=== PATIENT | female | born 1965 | race African-American/Black ===

== ENCOUNTER 2017-06-15 00:03 | Emergency (ER) | payer OTHER ==
[~2017-06-15] VITALS: Ht 172.7 cm; Wt 89.3 kg
[2017-06-15 00:13] VITALS: Ht 172.7 cm; Wt 89.3 kg
[2017-06-15 02:12] VITALS: BP 170/98
== END 2017-06-15 02:12 | disposition home or self-care (01) ==
LOC: ED 00:03
DX: J98.01 Acute bronchospasm (principal); I10 Essential (primary) hypertension; E11.9 Type 2 diabetes mellitus without complications; E78.00 Pure hypercholesterolemia, unspecified; E66.9 Obesity, unspecified; Z88.6 Allergy status to analgesic agent
CPT/HCPCS: 36415; 82962; 87804; J2930; J7613; J7644

== ENCOUNTER 2018-01-10 23:25 | Inpatient (IN) | payer OTHER ==
[~2018-01-10] VITALS: Ht 172.7 cm; Wt 111.1 kg
[2018-01-11] VITALS (7 sets, daily range): BP systolic 130–155; BP diastolic 72–111
[2018-01-11 00:15] LABS: PLATELET COUNT 237 x10^3mcL (130-400)
[2018-01-11 00:20] LABS: BASOPHIL % 2.9 % (0-2)
[2018-01-11 00:22] LABS: CALCIUM 8.5 mg/dL (8.5-10.1); CARBON DIOXIDE 29.8 mmol/L (21-32); CREATININE SERUM 1.1 mg/dL (0.6-1.0); POTASSIUM SERUM 3.8 mmol/L (3.5-5.1)
[2018-01-11 00:27] LABS: BILIRUBIN TOTAL 0.4 mg/dL (0.20-1.00); TOTAL PROTEIN, SERUM 7.1 g/dL (6.4-8.2)
[2018-01-11 00:38] LABS: ALBUMIN 3.1 g/dL (3.4-5.0)
[2018-01-11] MEDS ORDERED: GOOD SENSE ASPI81 M3 PO (02:00)
[2018-01-11] MEDS ORDERED: NOR10 PO (02:01)
[2018-01-11] MEDS ORDERED: FUROSEMIDE20 MG PO (02:03)
[2018-01-11] MEDS ORDERED: LIPITOR40 MG PO (02:04)
[2018-01-11] MEDS ORDERED: GOOD NEIGHBOR P20 M2 PO (02:06)
[2018-01-11] MEDS ORDERED: METOPROLOL TART50 MG PO (02:07)
[2018-01-11] MEDS ORDERED: ISOSORBIDE DINI20 MG PO (02:12)
[2018-01-11] MEDS ORDERED: POTASSIUM CHLO10 MEQ PO (02:13)
[2018-01-11 02:15] LABS: CHOLESTEROL/HDL RATIO 2.8; MAGNESIUM 1.5 mg/dL (1.8-2.4); PHOSPHOROUS 4.9 mg/dL (2.5-4.9)
[2018-01-11 02:23] LABS: T3 TOTAL 0.9 ng/mL
[2018-01-11 02:24] LABS: FREE T4 1.11 ng/dL (0.76-1.46); FREE THYROXINE INDEX 2.3 ug/dL (1.4-4.5); T4(THYROXINE) 6.9 ug/dL (4.7-13.3)
[2018-01-11 06:26] LABS: BASOPHIL % 0.2 % (0-2); PLATELET COUNT 202 x10^3mcL (130-400)
[2018-01-11 06:32] LABS: IRON 37 ug/dL (50-170)
[2018-01-11 06:34] LABS: RED CELL DISTRIBUTION WIDTH 20.5 % (11.5-14.5)
[2018-01-11 06:46] LABS: CALCIUM 8.6 mg/dL (8.5-10.1); CARBON DIOXIDE 30.6 mmol/L (21-32); CREATININE SERUM 1.2 mg/dL (0.6-1.0); POTASSIUM SERUM 4.7 mmol/L (3.5-5.1)
[2018-01-11 06:59] LABS: TOTAL IRON BINDING CAPACITY 466 ug/dL (250-450)
[2018-01-11 07:52] LABS: rbc morphology (normal/abnorm) ABNORMAL (NORMAL)
[2018-01-11 10:51] LABS: RED BLOOD CELLS 4.91 M/mm3 (4.10-5.10)
[2018-01-11] MEDS ORDERED: LASIX40 MG PO (11:47)
[2018-01-11] MEDS ORDERED: PREDNISONE20 MG PO (11:50)
[2018-01-11] MEDS ORDERED: LEVAQUIN750 MG PO (11:56)
== END 2018-01-11 14:37 | disposition home or self-care (01) | DRG 133 ==
LOC: ED 23:25 → DU 01-11 01:09
PROVIDERS: Emergency Medicine; Family Medicine
DX: J96.00 Acute respiratory failure, unspecified whether with hypoxia or hypercapnia (principal); I50.43 Acute on chronic combined systolic (congestive) and diastolic (congestive) heart failure; E44.0 Moderate protein-calorie malnutrition; E11.65 Type 2 diabetes mellitus with hyperglycemia; E83.42 Hypomagnesemia; J44.1 Chronic obstructive pulmonary disease with (acute) exacerbation; M94.0 Chondrocostal junction syndrome [Tietze]; I16.0 Hypertensive urgency; D50.9 Iron deficiency anemia, unspecified; Z79.4 Long term (current) use of insulin
CPT/HCPCS: 83880; 84439; J1940; J1956; J2270; J2405; J2920; J2930; J7030; J7620; Q0092

== ENCOUNTER 2018-09-13 00:04 | Inpatient (IN) | payer OTHER ==
[~2018-09-13] VITALS: Ht 172.7 cm; Wt 116.8 kg
[~2018-09-13 00:04] MED LIST: FUROSEMIDE20 MG PO; GOOD NEIGHBOR P20 M2 PO; GOOD SENSE ASPI81 M3 PO; ISOSORBIDE DINI20 MG PO; LASIX40 MG PO; LEVAQUIN750 MG PO; LIPITOR40 MG PO; METOPROLOL TART50 MG PO; NOR10 PO; POTASSIUM CHLO10 MEQ PO; PREDNISONE20 MG PO
--- NOTE | 2018-09-13 00:15 | NUR ---
EKG IN PROGRESS IN TRIAGE.
--- NOTE | 2018-09-13 00:50 | NUR ---
PT. IN ED WITH C/O FEELING SOB, CHEST PAIN, AND BILATERAL LEG PAIN AND SWELLING SINCE YESTERDAY. STATES SHE WAS SEEN AT [facility] ER YESTERDAY AND TREATED WITH LASIX. STATES WAS D/C WITH LASIX FOR HOME, REPROTS SHE TOOK HER LASIX TODAY BUT STILL FEELS SOB AND SWELLING TO LEGS. PT. AAOX4, TALKING AND RESPONDING APPROPRIATELY, BREATHING E/U. NOT IN ANY APPARENT DISTRESS AT THIS TIME. WILL CONTINUE TO MONITOR.
--- NOTE | 2018-09-13 01:19 | NUR ---
LAB AT BEDSIDE FOR BLOOD DRAW.
--- NOTE | 2018-09-13 01:22 | NUR ---
AT BEDSIDE FOR MSE.
[2018-09-13 01:31] LABS: PLATELET COUNT 278 x10^3mcL (130-400)
[2018-09-13 01:34] LABS: BASOPHIL % 2.7 % (0-2); RED CELL DISTRIBUTION WIDTH 18.7 % (11.5-14.5)
[2018-09-13 01:38] LABS: CALCIUM 8.9 mg/dL (8.5-10.1); CARBON DIOXIDE 27.4 mmol/L (21-32); CREATININE SERUM 1.4 mg/dL (0.6-1.0)
[2018-09-13 01:43] LABS: TOTAL PROTEIN, SERUM 7.3 g/dL (6.4-8.2)
--- NOTE | 2018-09-13 02:07 | NUR ---
PT. MEDICATED PER E-MAR. ALSO BESIDE COMMODE PALCED IN ROOM. INFORMED PT. TO CALL NURSE WHEN SHE NEEDS TO USE RESTROOM. VERBALIZED UNDERSTANDING
--- NOTE | 2018-09-13 02:53 | NUR ---
PT. UP TO BEDSIDE COMMODE, VOIDED X1.
--- NOTE | 2018-09-13 03:00 | NUR ---
DR. KEMP AT BEDSIDE TO DISCUSS PLAN OF CARE WITH PATIENT.
[2018-09-13] MEDS ORDERED: LANTUS SOLOS100 U/M1 (03:19)
[2018-09-13] MEDS ORDERED: LISINOPRIL2.5 MG (03:19)
--- NOTE | 2018-09-13 03:35 | NUR ---
REPORT GIVEN TO JARAD GRAHAM FOR FURTHER CARE OF ARNULFOMarybel. ALL QUESTIONS AND CONCERNS ADDRESSED.
[2018-09-13 03:42] VITALS: BP 142/69
[2018-09-13 03:58] LABS: MAGNESIUM 1.4 mg/dL (1.8-2.4); PHOSPHOROUS 5.3 mg/dL (2.5-4.9)
[2018-09-13 04:02] LABS: CHOLESTEROL/HDL RATIO 2.5
[2018-09-13 04:08] LABS: FREE T4 1.16 ng/dL (0.76-1.46); FREE THYROXINE INDEX 2.6 ug/dL (1.4-4.5)
[2018-09-13 04:09] VITALS: BP 155/111
[2018-09-13 04:38] LABS: T3 TOTAL 0.86 ng/mL
--- NOTE | 2018-09-13 04:40 | NUR ---
Admitted this 53y/o female from ED via [facility]. Alert and oriented. Ambulatory but c/o pain to BLE. No respiratory distress noted. Medicated with morphine as ordered for BLE pain. Admission assessment done. Fluid restriction 1L/day, pt. made aware. Tele #21 sinus tachycardia. Denies chest pain at this time. Call light within reach.
[2018-09-13 07:29] LABS: CALCIUM 8.7 mg/dL (8.5-10.1); CARBON DIOXIDE 30.8 mmol/L (21-32); CREATININE SERUM 1.4 mg/dL (0.6-1.0); POTASSIUM SERUM 3.8 mmol/L (3.5-5.1)
--- NOTE | 2018-09-13 07:35 | NUR ---
A+OX4, NO RESPIRATORY DISTRESS NOTED, TELE 21, PULSES MODERATE AND EQUAL LENKA, NONPITTING EDEMA TO BLE, DIMINISHED LUNG BASES, TOLERATING RA, BOWEL SOUNDS ACTIVE, VOIDING FREELY, GENERALIZED WEAKNESS, BLE PAIN, ECCHYMOSIS AND DISCOLORATION TO ABD, IV IN R HAND SALINE LOCKED, SITE WNL.
[2018-09-13 07:42] LABS: MAGNESIUM 1.4 mg/dL (1.8-2.4); PHOSPHOROUS 5.8 mg/dL (2.5-4.9)
[2018-09-13 08:09] LABS: PLATELET COUNT 227 x10^3mcL (130-400)
[2018-09-13 08:11] LABS: RED CELL DISTRIBUTION WIDTH 20.7 % (11.5-14.5)
--- NOTE | 2018-09-13 09:23 | NUR ---
PT COMPLAINING OF BLE PAIN 10/10, REQUESTING MORPHINE, MORPHINE IVP GIVEN, NO RESPRIATORY DISTRESS NOTED, CALL LIGHT WITHIN REACH.
[2018-09-13 10:02] VITALS: BP 119/92
--- NOTE | 2018-09-13 10:20 | NUR ---
ASSISTED PT TO BATHROOM AND BACK TO BED, SOB ON EXERTION, BACK IN BED HAVING ECHO DONE AT BEDSIDE, CALL LIGHT WITHIN REACH.
--- NOTE | 2018-09-13 12:04 | NUR ---
PT RESTING IN BED, NO RESPRIATORY DSITRESS NOTED, STATES PAIN IS TOLERABLE AT THIS TIME, CALL LIGHT WITHIN REACH.
--- NOTE | 2018-09-13 13:39 | NUR ---
PT RESTING IN BED, NO RESPIRATORY DSITRESS NOTED, APPEARS TO BE SLEEPING, CALL LIGHT WITHIN REACH.
--- NOTE | 2018-09-13 14:31 | NUR ---
PT COMPLAINING OF 10/10 BLE PAIN, REFUSING NORCO, REQUESTING MORPHINE, MORPHINE IVP GIVEN, RT AT BEDSIDE FOR BREATHING TREATMENT, CALL LIGHT WITHIN REACH.
[2018-09-13 14:37] VITALS: BP 107/82
[2018-09-13 14:43] LABS: ATYPICAL LYMPH 4 %; BAND NEUTROPHIL 0 % (0-10); BASOPHIL 0 % (0-2); MONOCYTE 6 % (0-7); SEGMENTED NEUTROPHILS 53 % (37-75); rbc morphology (normal/abnorm) ABNORMAL (NORMAL)
[2018-09-13 17:08] LABS: microscopic required? NO
[2018-09-13 17:22] LABS: urine erythrocyte NEGATIVE (NEGATIVE)
[2018-09-13 17:30] LABS: AMPHETAMINE QUAL UR NONE DETECTED (See below)
[2018-09-13 17:57] VITALS: BP 120/85
--- NOTE | 2018-09-13 18:13 | NUR ---
PT RESTING IN BED, NO RESPIRATORY DISTRESS NOTED, PT COMPLAINING THAT SHE CANNOT EAT CHICKEN AND PEAS AND REQUESTING ANOTHER DISH. PER KITCHEN, ONLY OTHER MAIN DISH IS PASTA WITH MEAT SAUCE. KITCHEN TO SEND PT PASTA TRAY.
--- NOTE | 2018-09-13 18:57 | NUR ---
PT RESTING IN BED, COMPLAINING OF 10/10 BLE PAIN, REQUESTING MORPHINE, MORPHINE IVP GIVEN, NO RESPIRATORY DISTRESS NOTED, CALL LIGHT WITHIN REACH.
--- NOTE | 2018-09-13 19:05 | NUR ---
ENDORSED CARE TO JENNIE GRAHAM.
--- NOTE | 2018-09-13 19:10 | NUR ---
AWAKE AND ALERT, ORIENTED X 4. SPEECH CLEAR AND APPROPRIATE. HOB ELEVATED 30 DEG. BREATHING UNLABORED ON 2LPM OF O2 VIA NC. STATED COMFORTABLE AT THIS TIME. NON PITTING EDEMA TO BLE. SALINE LOCK TO RIGHT HAND.
[2018-09-13 20:27] VITALS: BP 121/82
--- NOTE | 2018-09-14 00:07 | NUR ---
EYES CLOSED, BREATHING EVEN AND UNLABORED. CALL LIGHT WITHIN EASY REACH. HOB KEPT ELEVATED 30 DEG.
--- NOTE | 2018-09-14 02:28 | NUR ---
EYES CLOSED, BREATHING EVEN AND UNLABORED. CALL LIGHT WITHIN EASY REACH.
[2018-09-14 05:37] VITALS: BP 122/75
--- NOTE | 2018-09-14 06:32 | NUR ---
EYES CLOSED, EASILY AWAKENED. STATED SHE IS COMFORTABLE AT THIS TIME. BREATHING UNLABORED.
--- NOTE | 2018-09-14 07:12 | NUR ---
EYES CLOSED, BREATHING UNLABORED. CALL LIGHT WITHIN EASY REACH. ENDORSED TO NURSE YURIDIA
[2018-09-14 07:24] LABS: CALCIUM 8.7 mg/dL (8.5-10.1); CARBON DIOXIDE 31.1 mmol/L (21-32); CREATININE SERUM 1.5 mg/dL (0.6-1.0); POTASSIUM SERUM 3.7 mmol/L (3.5-5.1)
--- NOTE | 2018-09-14 07:53 | NUR ---
A+OX4, NO RESPIRATORY DSITRESS NOTED, TELE 21, PULSES MODERATE AND EQUAL LENKA, NON PITTING EDEMA BLE, LUNG SOUNDS DIMINISHED, 2L NC, BOWEL SOUNDS ACTIVE, VOIDING FREELY, GENERALIZED WEAKNESS, AMBULATORY, ECCHYMOSIS/DISCOLORATION TO ABD, IV IN R HAND SALINE LOCKED, SITE WNL.
[2018-09-14 08:22] LABS: BASOPHIL % 1.6 % (0-2); PLATELET COUNT 223 x10^3mcL (130-400)
[2018-09-14 08:24] LABS: RED CELL DISTRIBUTION WIDTH 20.8 % (11.5-14.5)
[2018-09-14 09:24] VITALS: BP 120/69
--- NOTE | 2018-09-14 09:42 | NUR ---
PT RESTING IN BED, COMPLAINING OF 10/10 BLE PAIN, REQUESTING MORPHINE IVP, MORPHINE IVP GIVEN, NO RESPRIATORY DSITRESS NOTED, CALL LIGHT WITHIN REACH.
[2018-09-14 10:33] LABS: ovalocyte/elliptocyte 1+; rbc morphology (normal/abnorm) ABNORMAL (NORMAL); target cell (codocyte) 1+; tear drop cell (dacryocyte) 1+
--- NOTE | 2018-09-14 12:03 | NUR ---
PT RESTING IN BED, NO RESPIRATORY DSITRESS NOTED, STATES PAIN IS TOLERABLE AT THIS TIME, CALL LIGHT WITHIN REACH.
[2018-09-14 12:34] VITALS: BP 129/79
--- NOTE | 2018-09-14 14:03 | NUR ---
PT RESTING IN BED RECEIVING BREATHING TREATMENT FROM RT, NO RESPRIATORY DISTRESS NOTED, COMPLAINING OF BLE, REQUESTING MORPHINE, MORPHINE IVP GIVEN, CALL LIGHT WITHIN REACH.
--- NOTE | 2018-09-14 15:02 | NUR ---
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
[2018-09-14 16:41] VITALS: BP 112/74
--- NOTE | 2018-09-14 16:51 | NUR ---
PT RESTING IN BED, NO RESPIRATORY DISTRESS NOTED, STATES PAIN IS TOLERABLE AAT THIS TIME, CALL LIGHT WITHIN REACH.
--- NOTE | 2018-09-14 18:36 | NUR ---
PT RESTING IN BED, COMPLAINING OF 10/10 BLE PAIN, MORPHINE IVP GIVEN, NO RESPRIATORY DISTRESS NOTED, CALL LIGHT WITHIN REACH.
[2018-09-14 19:55] VITALS: BP 110/67
--- NOTE | 2018-09-14 20:16 | NUR ---
PATIENT RECEIVED IN BED DURING BEDSIDE HANDS OFF AWAKE,ALERT AND ORIENTED X4 WATCHING TV, IN NO DISTRESS. ORIENTED X4, BREATHING EVEN AND UNLABORED BS CLEAR DIMINISHED BASES, STATED MILD SOB ON EXERTION AND ALSO WITH OCC NON PRODUCTIVE COUGH, FOUND ON 1LNC SAT 98%. DENIED CHEST PAINS, TELE#21 SR W/ BBB. HEPLOCK RT HAND INTACT AND PATENT. PATIENT WITH MILD GENERALIZED WEAKNESS, STATED AMBULATED TO BR TWICE ALREADY AND TOLERATED IT WELL. PITTING EDEMA TO BLE PULSES WEAK, PATIENT COMPLAINED OF MILD BLE PAIN RATED AT 4/10 INFORMED ABOUT PAIN MANAGEMENT. PATIENT ON CONTACT ISOLATION FOR POSITIVE MRSA/NARES, PATIENT GIVEN EDUCATTION ABOUT IT. SAFETY PRECAUTIONS MAINTAINED. WILL CONTINUE TO MONITOR.
[2018-09-14 21:22] VITALS: BP 106/73
--- NOTE | 2018-09-14 21:43 | NUR ---
PATIENT SCHED MEDS ADMINISTERED, PATIENT IN SITTING POSITION, PATIENT INFORMED ABOUT EACH MEDS ACTIONS AND PURPOSES. TOOK PILLS WELL. PATIENT ALSO COMPLAINED OF BLE PAIN RATED AT 6/10 MEDICATED PRN. MADE COMFORTABLE AND WILL CHECK EFFECTIVENESS OF MED. ALL CONCERNS AND QUESTIONS ADDRESSED AND ANSWERED.
--- NOTE | 2018-09-15 | NUR ---
ROUNDS MADE PATIENT SLEEPING QUIETLY AND COMFORTABLY THIS TIME. NO S/S OF DISTRESS. O2 AT 1LNC MAINTAINED. WILL CONTINUE TO MONITOR.
--- NOTE | 2018-09-15 02:32 | NUR ---
COMPLAINED OF BLE PAIN RATED AT 6/10, QV=084/78, MEDICATED PRN.
--- NOTE | 2018-09-15 03:32 | NUR ---
CHECKED EFFECTIVENESS, PATIENT STATED PAIN AT 2/10 COMFORTABLE.
--- NOTE | 2018-09-15 05:50 | NUR ---
PATIENT COMPLAINED OF HEADACHE AND REQUESTED FOR NORCO, MEDICATED PRN. WILL CHECK EFFECTIVENESS.
[2018-09-15 06:08] VITALS: BP 126/74
--- NOTE | 2018-09-15 06:11 | NUR ---
PATIENT STATED THAT SHE RESTED WELL AND SLEPT GOOD DURING THE SHIFT. WAS AMBULATORY TO THE BATHROOM TO VOID, MEASURED UA AT 1000 ML YELLOW UA. HEPLOCK TO RT HAND INTACT. DENIED CHEST PAINS, SR WITH BBB ON THE MONITOR. SAFETY PRECAUTIONS AND CONTACT ISOLATION OBSERVED AND MAINTAINED. WILL ENDORSE CONITNUITY OF CARE TO INCOMING NURSE.
--- NOTE | 2018-09-15 07:23 | NUR ---
BEDSIDE HANDS OFF AND INTROCUTION PREFORMED WITH INCOMING NURSE NICOLE-GLADYS.
[2018-09-15 07:30] LABS: PLATELET COUNT 213 x10^3mcL (130-400)
[2018-09-15 07:33] LABS: BASOPHIL % 0 % (0-2); RED CELL DISTRIBUTION WIDTH 20.2 % (11.5-14.5)
[2018-09-15 07:35] LABS: CALCIUM 8.4 mg/dL (8.5-10.1); CARBON DIOXIDE 32.4 mmol/L (21-32); CREATININE SERUM 1.1 mg/dL (0.6-1.0); POTASSIUM SERUM 3.4 mmol/L (3.5-5.1)
--- NOTE | 2018-09-15 07:40 | NUR ---
PATIENT RESTING IN BED, NO ACUTE DISTRESS NOTED. PATIENT DENIES CHEST PAIN, TELE MONITOR IN PLACE. EDMEA NOTED TO BILATERAL LOWER EXTREMITIES, EDUCATED PATIENT TO MAINTAIN EXTREMITIES ELEVATED. LUNG SOUNDS DIMINISHED TO THE BASES, PATIENT ON 1L NC, DENIES SOB. PATIENT AMBULATORY WITH ASSIST. IV TO RIGHT HAND SALINE LOCK, IV CDI, NO REDNESS, SWELLING OR PAIN NOTED.
--- NOTE | 2018-09-15 09:23 | NUR ---
DR CASTAÑEDA AWARE PATIENT K WAS 3.4, DR CASTAÑEDA GAVE VERBAL/READBACK ORDERS FOR KCL 20MEQ PO ONCE. WILL CARRY OUT ORRDERS AT THIS TIME.
[2018-09-15 09:38] VITALS: BP 139/83
[2018-09-15 11:09] VITALS: Ht 172.7 cm; Wt 116.8 kg
[2018-09-15 12:48] VITALS: BP 143/78
[2018-09-15] MEDS ORDERED: COR6 PO (13:21)
[2018-09-15] MEDS ORDERED: ZES5 PO (13:22)
[2018-09-15 14:30] VITALS: BP 143/78
--- NOTE | 2018-09-15 15:20 | NUR ---
PATIENT IS TO BE DISCHARGED HOME. PATIENT RECEIVED COPY OF DISCHARGE INSTRUCTIONS AND PRESCRIPTIONS. PATIENT UNDERSTANDS AND AGREES WITH D/C PLAN AND INSTRUCTIONS, INCLUDING MEDICATIONS AND FOLLOW UP CARE WITH PCP AND DRIVER MEDIC. ALL QUESTION AND CONCERNS ADDRESSED. WILL CONTINUE TO MONITOR PATIENT.
--- NOTE | 2018-09-15 16:25 | NUR ---
PATIENT WAS D/C HOME. PATIENT TAKEN DOWN VIA WHEELCHAIR BY HARNESS BUILDER. PATIENT TOOK HOME ALL PERSONAL BELONGINGS, DAUGHTER AT BEDSIDE. PATIENT TELE MONITOR, ARMBANDS REMOVED. IV TO R HAND REMOVED, CATH INTACT. PATIENT STABLE UPON DISCHARGE.
== END 2018-09-15 16:27 | disposition home or self-care (01) | DRG 194 ==
LOC: ED 00:04 → DU 02:56
PROVIDERS: ADMIT General Practice
DX: I11.0 Hypertensive heart disease with heart failure (principal); N17.0 Acute kidney failure with tubular necrosis; I50.43 Acute on chronic combined systolic (congestive) and diastolic (congestive) heart failure; E44.0 Moderate protein-calorie malnutrition; E11.65 Type 2 diabetes mellitus with hyperglycemia; E78.5 Hyperlipidemia, unspecified; J45.909 Unspecified asthma, uncomplicated; Z68.39 Body mass index [BMI] 39.0-39.9, adult; Z79.84 Long term (current) use of oral hypoglycemic drugs
CPT/HCPCS: 82962; 83880; 84439; J1644; J1940; J2270; J7620; Q0092

== ENCOUNTER 2018-09-22 20:59 | Inpatient (IN) | payer MEDICAID ==
[~2018-09-22] VITALS: Ht 172.7 cm; Wt 108.4 kg
[~2018-09-22 20:59] MED LIST changes: +COR6 PO; +LANTUS SOLOS100 U/M1; +LISINOPRIL2.5 MG; +ZES5 PO
[2018-09-22 21:04] VITALS: Ht 172.7 cm; Wt 108.4 kg
--- NOTE | 2018-09-22 21:09 | NUR ---
EKG IN PROGRESS IN TRIAGE.
--- NOTE | 2018-09-22 21:27 | NUR ---
PT CAME IN FOR CHEST PAIN, PRESSURE, SOB X 1 DAY WITH BILATERAL LOWER EXTREMITY PITTING EDEMA AND TENDERNESS. PT AWAKE, ALERT, RESPIRATIONS EVEN AND UNLABORED AT THIS TIME. FAMILY AT BEDSIDE. SAFETY PRECAUTIONS IN PLACE. ON MANAGER POKER
--- NOTE | 2018-09-22 21:39 | NUR ---
DR. HUSTON IN TO SEE PATIENT
--- NOTE | 2018-09-22 22:06 | NUR ---
MEDICATED PER EMAR. RT AT BEDSIDE
--- NOTE | 2018-09-22 22:21 | NUR ---
CALLED INTO ROOM BY DAUGHTER CONCERNED ABOUT BLOOD AROUND IV SITE. REMOVED BLOODY TEGADERM, WIPED BLOOD OFF SKIN, ASSESSED SALINE LOCK, ATTACHED WELL, AND APPLIED NEW IV DRESSING TO SITE, FLUSHED WITH 10ML NS/ WITH NO S/S OF INFILTRATION.
[2018-09-22 22:24] LABS: BASOPHIL % 1.4 % (0-2); PLATELET COUNT 238 x10^3mcL (130-400)
[2018-09-22 22:28] LABS: RED CELL DISTRIBUTION WIDTH 21.1 % (11.5-14.5)
[2018-09-22 22:33] LABS: rbc morphology (normal/abnorm) ABNORMAL (NORMAL)
[2018-09-22 22:34] LABS: CALCIUM 8.8 mg/dL (8.5-10.1); CARBON DIOXIDE 29.9 mmol/L (21-32); CREATININE SERUM 1.1 mg/dL (0.6-1.0); POTASSIUM SERUM 3.8 mmol/L (3.5-5.1); acanthocyte (spur cell) 1+; target cell (codocyte) 1+
--- NOTE | 2018-09-22 22:36 | NUR ---
PT CURRENTLY RESTING WITH EYES CLOSED, RESPONDS TO VERBAL STIMULI, REPORTS CHEST PAIN DOWN TO A 2/10, DENIES SOB. RESPIRATIONS EVEN AND UNLABORED. SAFETY PRECAUTIONS IN PLACE
[2018-09-22 22:45] LABS: BILIRUBIN TOTAL 0.58 mg/dL (0.20-1.00); C REACTIVE PROTEIN 0.5 mg/dL (<=0.9); TOTAL PROTEIN, SERUM 7.5 g/dL (6.4-8.2)
[2018-09-22 23:10] LABS: ERYTHROCYTE SED RATE 22 mm/hr (0-30)
[2018-09-22 23:13] LABS: CK-MB 0.9 ng/mL (0-3.6)
[2018-09-22 23:31] LABS: MAGNESIUM 1.7 mg/dL (1.8-2.4)
[2018-09-22 23:32] LABS: CHOLESTEROL/HDL RATIO 2.5
[2018-09-22 23:41] LABS: FREE T4 1.1 ng/dL (0.76-1.46); FREE THYROXINE INDEX 2.1 ug/dL (1.4-4.5); T4(THYROXINE) 6.4 ug/dL (4.7-13.3)
[2018-09-22 23:46] LABS: T3 TOTAL 1.2 ng/mL
--- NOTE | 2018-09-23 00:21 | NUR ---
REPORT GIVEN TO URSZULA GRAHAM, ALL QUESTIONS AND CONCERNS WERE ADDRESSED.
[2018-09-23 00:48] VITALS: BP 151/103
--- NOTE | 2018-09-23 00:52 | NUR ---
RECEIVED PT FROM ED VIA [employer]. ORIETNED PT TO ROOM AND SURROUNDINGS. IV NOTED TO RAC PATENT AND INTACT. TELE 22 PLACED ON PT READING ST WITH BBB. INSTRUCTED PT ON THE USE OF CALL LIGHT FOR ASSISTANCE. ENDORSED PT TO PRIMARY NURSE URSZULA
--- NOTE | 2018-09-23 00:54 | NUR ---
PAGED DR. KEMP REGARDING MAG 1.7.
--- NOTE | 2018-09-23 01:18 | NUR ---
DR. KEMP AT BEDSIDE PERFORMING ASSESSMENT.
--- NOTE | 2018-09-23 04:20 | NUR ---
PT C/O / BLE ACHING, "RIPPING" PAIN. PT MOANING FROM PAIN. MEDICATED PER EMAR.
[2018-09-23 04:28] VITALS: BP 152/103
[2018-09-23 04:50] LABS: UA SPECIFIC GRAVITY <=1.005 (1.005-1.035); microscopic required? YES; urine erythrocyte NEGATIVE (NEGATIVE)
[2018-09-23 05:08] LABS: AMPHETAMINE QUAL UR NONE DETECTED (See below)
[2018-09-23 06:31] LABS: PLATELET COUNT 167 x10^3mcL (130-400)
--- NOTE | 2018-09-23 07:20 | NUR ---
SEEN RESTING WITH EYES CLOSED. NO RESP DISTRESS NOTED, BREATHING E/U ON O2 2LPM N/C. TELE# 22 ST WITH BBB, HR=99. 3+EDEMA TO BLE, SCD TO BLE INPLACE. ON CCHO DIET WITH 1 LITER/DAY FLUID RESTRICTION. VOIDS, BRP. S/L TO RAC INTACT. CALL LIGHT NOTED PLACED WITHIN EASY REACH. SIDERAILS UP X2.
[2018-09-23 07:22] LABS: CALCIUM 8.6 mg/dL (8.5-10.1); CARBON DIOXIDE 28.5 mmol/L (21-32); CREATININE SERUM 1.1 mg/dL (0.6-1.0); MAGNESIUM 1.7 mg/dL (1.8-2.4); POTASSIUM SERUM 3.9 mmol/L (3.5-5.1)
[2018-09-23 07:44] LABS: RED CELL DISTRIBUTION WIDTH 20.6 % (11.5-14.5)
[2018-09-23 08:28] VITALS: BP 117/87
--- NOTE | 2018-09-23 09:00 | NUR ---
AM SCHEDULED MEDS GIVEN. STATED PAIN TO BLE AND CHEST SUBSIDED AFTER MORPHINE GIVEN FROM TRACTOR DRILL OPERATOR. TOLERATED TO [facility] DIET WELL. MADE AWARE OF 1 LITER/DAY FLUID RESTRICTION. RT AT BEDSIDE FOR BREATHING TX.
[2018-09-23 12:40] VITALS: BP 113/83
[2018-09-23 12:52] LABS: PLATELET MORPHOLOGY PLT CLUMPS SEEN
[2018-09-23 12:53] LABS: rbc morphology (normal/abnorm) ABNORMAL (NORMAL)
[2018-09-23 12:54] LABS: acanthocyte (spur cell) 1+; burr cell (echinocyte) 1+; ovalocyte/elliptocyte 1+
[2018-09-23 13:01] LABS: BAND NEUTROPHIL 1 % (0-10); MONOCYTE 6 % (0-7); SEGMENTED NEUTROPHILS 42 % (37-75)
--- NOTE | 2018-09-23 14:00 | NUR ---
SEEN BY DOCTOR TRISTON, PATIENT VERBALIZED UNDERSTANDING PLAN OF CARE. NOTED NEW ORDER FOR BUMEX IV BID.
[2018-09-23 16:41] VITALS: BP 112/87
--- NOTE | 2018-09-23 18:01 | NUR ---
NO ANY DISTRESS THROUGHOUT SHIFT. VSS. ALL SCHEDULED MEDS GIVEN. VOIDS FREELY, BSC. S/L TO RAC FLUSHED PATENT.
[2018-09-23 19:45] VITALS: BP 123/80
--- NOTE | 2018-09-23 19:58 | NUR ---
RECEIVED PT FROM PREVIOUS SHIFT. RESTING IN BED WITH EYES CLOSED, EASILY AROUSABLE TO VERBAL STIMULI. DENIES PAIN. BREATHING E/U ON 2L OXYGEN NC, DENIES FEELING SOB. DENIES CP. DENIES N/V. IV SITE TO [facility], PATENT AND FLUSHES WELL. SAFETY MEASURES IN PLACE. CALL LIGHT WITHIN REACH. WILL CONTINUE TO MONITOR CLOSELY.
--- NOTE | 2018-09-23 20:49 | NUR ---
PT MEDICATED PER EMAR FOR 03/01 BLE "RIPPING" PAIN.
--- NOTE | 2018-09-24 00:56 | NUR ---
PT RESTING IN BED WITH EYES CLOSED. NO S/S ACUTE DISTRESS. CHEST RISE/FALL EQUAL. CALL LIGHT WITHIN REACH. BSC BY BEDSIDE. SAFETY MEASURES IN PLACE. WILL CONTINUE TO MONITOR.
[2018-09-24 04:39] VITALS: BP 137/87
--- NOTE | 2018-09-24 05:58 | NUR ---
PT SLEPT IN LONG INTERVALS THROUGHOUT NIGHT. MEDICATED PER EMAR FOR 10/10 BLE PAIN. NO S/S ACUTE DISTRESS. ALL NEEDS MET AND ATTENDED TO. NO CHANGES OVERNIGHT. IV SITE PATENT AND INTACT, FLUSHES WELL. CALL LIGHT WITHIN REACH. SAFETY MEASURES MAINTAINED. WILL ENDORSE TO ONCOMING SHIFT.
--- NOTE | 2018-09-24 07:05 | NUR ---
SEEN IN BED AAOX4. NO RESP DISTRESS NOTED. STATED PAIN TO BLE SUBSIDED. NOTED 2+ EDEMA TO BLE, PEDAL PULES PALPABLE, ON BUMEX IV BID. STATED VOIDS FREELY, BSC PROVIDED. NO SOB NOTED, O2 2LPM N/C MAINTAINED. S/L TO RAC INTACT AND PATENT. PLAN OF CARE DISCUSSED. CALL LIGHT PLACED WITHIN EASY REACH, SIDERAILS UP X2.
[2018-09-24 07:58] LABS: CALCIUM 8.8 mg/dL (8.5-10.1); CARBON DIOXIDE 30.2 mmol/L (21-32); CREATININE SERUM 1.1 mg/dL (0.6-1.0)
[2018-09-24 08:57] VITALS: BP 123/80
--- NOTE | 2018-09-24 10:30 | NUR ---
DOCTOR JONES AND MEDICAL TEAM AT BEDSIDE FOR AM ROUND. PATIENT MADE AWARE OF CURRENT CONDITION AND PLAN OF CARE.
--- NOTE | 2018-09-24 10:50 | NUR ---
DOCTOR JONES AND MEDICAL TEAM AT BEDSIDE FOR AM ROUND.
[2018-09-24 11:50] LABS: BASOPHIL % 1.6 % (0-2); PLATELET COUNT 212 x10^3mcL (130-400)
[2018-09-24 11:53] LABS: RED CELL DISTRIBUTION WIDTH 20.9 % (11.5-14.5)
[2018-09-24 12:12] LABS: rbc morphology (normal/abnorm) ABNORMAL (NORMAL)
[2018-09-24 12:13] LABS: burr cell (echinocyte) 1+; schistocyte (helmet cell) 1+
[2018-09-24 12:14] LABS: ovalocyte/elliptocyte 1+
[2018-09-24 12:32] VITALS: BP 126/77
[2018-09-24 16:55] VITALS: BP 120/87
--- NOTE | 2018-09-24 17:50 | NUR ---
PT RESTING IN BED. AAOX4. RESP EVEN AND UNLABORED ON RA. NO ACUTE DISTRESS NOTED AT THIS TIME. IV SALINE LOCK TO LAC W/ NO ERYTHEMA. BED IN LOWEST POSITION AND CALL LIGHT WITHIN REACH. WILL ENDORSE TO ONCOMING NURSE.
--- NOTE | 2018-09-24 19:11 | NUR ---
RECEIVED PT FROM PREVIOUS SHIFT. RESTING IN BED WITH EYES CLOSED, CHEST RISE/FALL EQUAL. DENIES PAIN. BREATHING E/U ON 2L NC, PT C/O FEELING SOB, WILL NOTIFY RT. DENIES CP. TELE #22 SHOWING SINUS WITH BBB AND DEPRESSED ST-WAVE. DENIES N/V. IV SITE TO [facility] CDI, PATENT AND FLUSHES EASILY. SAFETY MEASURES IN PLACE. CALL LIGHT WITHIN REACH. WILL CONTINUE TO MONITOR CLOSELY.
[2018-09-24 19:42] VITALS: BP 140/89
--- NOTE | 2018-09-24 20:09 | NUR ---
PT C/O FEELING SOB. RT AT BEDSIDE TO ADMINISTER TX. PT MEDICATED FOR 10/10 BLE RIPPING SENSATION PAIN PER EMAR.
--- NOTE | 2018-09-25 01:03 | NUR ---
PT RESTING IN BED COMFORTABLY. CHEST RISE/FALL EQUAL. NO S/S ACUTE DISTRESS. CALL LIGHT WITHIN REACH. SAFETY MEASURES MAINTAINED. WILL CONTINUE TO MONITOR.
[2018-09-25 04:23] VITALS: BP 133/84
--- NOTE | 2018-09-25 05:27 | NUR ---
PT C/O SHARP, ACHING BLE PAIN AT 10/10. FACIAL GRIMACING AND GROANING NOTED. MEDICATED PER EMAR.
--- NOTE | 2018-09-25 06:02 | NUR ---
PT SLEPT IN SHORT INTERVALS THROUGHOUT NIGHT. NO CHANGES OVERNIGHT. ALL NEEDS MET AND ATTENDED TO. NO S/S ACUTE DISTRESS. UPDATED PT ON PLAN OF CARE. DENIES RESP. DISTRESS, ENCOURAGED PT TO CALL RT FOR TREATMENT IF NEEDED. PT VERBALIZED UNDERSTANDING. CALL LIGHT WITHIN REACH. WILL ENDORSE CARE TO ONCOMING SHIFT.
[2018-09-25 06:28] LABS: PLATELET COUNT 229 x10^3mcL (130-400)
[2018-09-25 06:51] LABS: CALCIUM 9.3 mg/dL (8.5-10.1); CARBON DIOXIDE 34.9 mmol/L (21-32); CREATININE SERUM 1.1 mg/dL (0.6-1.0); MAGNESIUM 1.4 mg/dL (1.8-2.4); PHOSPHOROUS 6.5 mg/dL (2.5-4.9); POTASSIUM SERUM 3.7 mmol/L (3.5-5.1)
[2018-09-25 06:57] LABS: RED CELL DISTRIBUTION WIDTH 20.6 % (11.5-14.5)
--- NOTE | 2018-09-25 07:05 | NUR ---
BEDSIDE REPORT GIVEN TO GLADYS LAMAS.
--- NOTE | 2018-09-25 07:18 | NUR ---
RECEIVED PT FROM SHIFT NURSE A/OX4 RESTING IN BED. NO ACUTE DISTRESS NOTED. DENIES CHEST PAIN OR PRESSURE. HEPLOCK PATENT. BED IN LOW POSITIONN. CALL LIGHT WITHIN REACH. WILL CONTINUE TO MONITOR.
--- NOTE | 2018-09-25 09:08 | NUR ---
PT C/O OF RT LEG PAIN. GAVE MORHINE ORDERED. WILL CONTINUE TO MONITOR.
[2018-09-25 09:10] VITALS: BP 141/78
--- NOTE | 2018-09-25 09:10 | NUR ---
PT EXPRESSED RELIEF OF RT LEG PAIN. WILL CONTINUE TO MONITOR.
--- NOTE | 2018-09-25 09:30 | NUR ---
PT EXPRESSED RELIEF OF RT LEG PAIN. WILL CONTINUE TO MONITOR.
--- NOTE | 2018-09-25 12:16 | NUR ---
PT SITTING UP IN BED TALKING ON THE PHONE. NO ACUTE DISTRESS NOTED. BED IN LOW POSITION. CALL LIGHT WITHIN REACH. WILL CONTINUE TO MONITOR.
[2018-09-25 12:29] VITALS: BP 132/87
[2018-09-25] MEDS ORDERED: POTASSIUM CHLO10 MEQ PO (12:41)
[2018-09-25] MEDS ORDERED: BUM1 PO (12:42)
[2018-09-25] MEDS ORDERED: MAGNESIUM OXID400 MG PO (12:43)
[2018-09-25] MEDS ORDERED: LYRICA50 M1 PO (12:47)
[2018-09-25 13:04] VITALS: BP 132/87
--- NOTE | 2018-09-25 13:54 | NUR ---
PT A/OX4 UPON DC. NO ACUTE DISTRESS NOTED. DENIES CHEST PAIN OR PRESSURE. NEW RX GIVEN. EDUCATION PROVIDED. INSTRUCTED TO FOLLOW UP WITH PCP. PT VERBALIZED UNDERSTANDING. IV REMOVED AND CATH INTACT. PERSONAL BELONGINGS TAKEN HOME. ACCOMPANIED BY ORDER DETAILER AND FAMILY MEMBER TO LOBBY.
== END 2018-09-25 13:56 | disposition home or self-care (01) | DRG 194 ==
LOC: ED 20:59 → DU 23:11
PROVIDERS: Specialist; ADMIT Internal Medicine
DX: I11.0 Hypertensive heart disease with heart failure (principal); I21.A1 Myocardial infarction type 2; N17.0 Acute kidney failure with tubular necrosis; I50.43 Acute on chronic combined systolic (congestive) and diastolic (congestive) heart failure; E44.0 Moderate protein-calorie malnutrition; E83.42 Hypomagnesemia; E11.65 Type 2 diabetes mellitus with hyperglycemia; I42.9 Cardiomyopathy, unspecified; R80.9 Proteinuria, unspecified; Z79.84 Long term (current) use of oral hypoglycemic drugs
CPT/HCPCS: 82962; 83880; 84439; J1815; J1940; J2270; J2405; J3010; J3475; J3490; J7050; J7613; J7620; J7644; Q0092; Q9967

== ENCOUNTER 2018-10-09 10:59 | Inpatient (IN) | payer OTHER ==
[~2018-10-09] VITALS: Ht 172.7 cm; Wt 108.0 kg
[~2018-10-09 10:59] MED LIST changes: +BUM1 PO; +LYRICA50 M1 PO; +MAGNESIUM OXID400 MG PO
--- NOTE | 2018-10-09 11:38 | NUR ---
XRAY AT BEDSIDE
[2018-10-09 12:08] LABS: CALCIUM 9.1 mg/dL (8.5-10.1); CARBON DIOXIDE 25.4 mmol/L (21-32); CREATININE SERUM 1.1 mg/dL (0.6-1.0); POTASSIUM SERUM 4.1 mmol/L (3.5-5.1)
[2018-10-09 12:13] LABS: BILIRUBIN TOTAL 0.44 mg/dL (0.20-1.00); TOTAL PROTEIN, SERUM 7.5 g/dL (6.4-8.2)
[2018-10-09 12:15] LABS: ALBUMIN 3.2 g/dL (3.4-5.0)
--- NOTE | 2018-10-09 13:13 | NUR ---
PT IN POSITION OF COMFORT WITH EYES CLOSED. RESP E/U, NO DISTRESS NOTED. REMAINS CONNECTED TO FULL CM.
[2018-10-09 13:24] LABS: PLATELET COUNT 225 x10^3mcL (130-400); RED CELL DISTRIBUTION WIDTH 21.6 % (11.5-14.5)
--- NOTE | 2018-10-09 13:40 | NUR ---
PT PRESENTS TO ED WITH C/O OF SOB X2 DAYS. PT STS SHE WAS FEELING VERY SHORT OF YESTERDAY AND TODAY IS WORSE. PT ALSO STS SHE HAS BILATERAL NUEROPATHY PAIN IN HER LOWER EXTREMITIES. PT DENIES ANY CHEST PAIN, ABDOMINAL PAIN, N/V/D, OR FEVER. PT STS WHEN SHE USUALLY FEELS THIS SHORT OF BREATH FROM HER CHF HER LEGS "SWELL". NO EDEMA NOTED ON PT BILATERAL LOWER EXTREMITIES. PT STS NUEROPATHY PAIN IS NOT CONSTANT BUT "IT FEELS LIKE I'M BEING SHOCKED WHEN I HAVE PAIN". PT AAOX4, RESP E/U, NO ACUTE DISTRESS NOTED AT THIS TIME.
[2018-10-09 14:02] LABS: BAND NEUTROPHIL 1 % (0-10); BASOPHIL 0 % (0-2); MONOCYTE 2 % (0-7); SEGMENTED NEUTROPHILS 47 % (37-75)
[2018-10-09 14:03] LABS: PLATELET MORPHOLOGY GIANT PLATELET SEEN; rbc morphology (normal/abnorm) ABNORMAL (NORMAL); tear drop cell (dacryocyte) 1+
[2018-10-09 14:17] LABS: MAGNESIUM 1.6 mg/dL (1.8-2.4); PHOSPHOROUS 4.2 mg/dL (2.5-4.9)
[2018-10-09 14:18] LABS: CHOLESTEROL/HDL RATIO 2.5
--- NOTE | 2018-10-09 14:39 | NUR ---
REPORT GIVEN TO GLADYS CRABTREE ON TELE UNIT TO ASSUME CARE OF PT.
[2018-10-09 15:19] VITALS: BP 142/99
--- NOTE | 2018-10-09 15:29 | NUR ---
RECEIVED PT FROM ER, PT ADMIT FOR CHF, NONSTEMI, PT IS A/O X4, VERBAL RESPONSIVE, ABLE TO TELL WHAT SHE NEEDS. LUNG SOUND CLEAR BILATERAL, NO SOB, NO COUGH, PO2 97% IN ROOM AIR, PT IS ON TELE 30, ST, HR 108 AT THIS MOMENT, PT C/O CHEST PAIN 8/10 AND RADIATE TO RIGHT ARM, BOWEL SOUND PRESENT ALL 4 QUADRANTS, NO DISTENTION, NO TENDER. PEDAL PULSE PRESENT BOTH FEET, TRACE BLE, IV AT LEFT HAND, DRESSING INTACT, NO LEAKING, NO INFILTRATION. ALL ALDS ASSIST, ALL NEED MET, CALL LIGHT IN REACH, WILL CONTINUE TO MONITOR.
--- NOTE | 2018-10-09 15:43 | NUR ---
PT C/O OF LEG PAIN 03/01. GAVE NORCO ORDERED. WILL CONTINUE TO MONITOR.
--- NOTE | 2018-10-09 18:18 | NUR ---
PT LYING IN BED. NO C/O OF CHEST PAIN OR PRESSURE. IV INTACT AND PATENT. BED IN LOW POSITION. CALL LIGHT WITHIN REACH. WILL BE ENDORSED.
[2018-10-09 19:15] VITALS: BP 123/92
--- NOTE | 2018-10-09 19:30 | NUR ---
DR ROCHE MADE AWARE LAB RESULT FOR TROPONION. WAITING FOR NEW ORDER.
--- NOTE | 2018-10-09 19:38 | NUR ---
RECEIVED PT IN BED RESTING.C/O SLIGHT SOB. PLACED 2LNC.VERBALIZED FEELS BETTER AFTER PLACING THE OXYGEN. O2SAT 100%. C/O BACK AND LEG PAIN. WILL MEDICATE ORDERED. IV SITE PATENT AND INTACT. BED IN LOWEST POSITION,CALL LIGHT WITHIN REACH. WILL CONTINUE TO MONITOR.
--- NOTE | 2018-10-09 20:31 | NUR ---
PT C/O BACK AND LEG PAIN 10/10. MEDICATED MORPHINE 2MG IV ORDERED. WILL CONTINUE TO MONITOR.
[2018-10-10 03:17] LABS: PLATELET COUNT 215 x10^3mcL (130-400)
[2018-10-10 03:25] LABS: BASOPHIL % 2.2 % (0-2); RED CELL DISTRIBUTION WIDTH 20.4 % (11.5-14.5)
[2018-10-10 03:34] LABS: CALCIUM 10.2 mg/dL (8.5-10.1); CARBON DIOXIDE 30.7 mmol/L (21-32); CREATININE SERUM 1.3 mg/dL (0.6-1.0); MAGNESIUM 1.5 mg/dL (1.8-2.4); PHOSPHOROUS 6.6 mg/dL (2.5-4.9)
--- NOTE | 2018-10-10 05:19 | NUR ---
PT ASLEEP. NO ACUTE RESPIRATORY DISTRESS NOTED.NO C/O PRESSURE OR ANY PAIN AT THIS TIME.BED IN LOWEST POSITION,CALL LIGHT WITHIN REACH. WILL CONTINUE TO MONITOR.
[2018-10-10 05:59] VITALS: BP 98/58
--- NOTE | 2018-10-10 07:24 | NUR ---
CARE ENDORSED TO DAY NURSE TANVIR.
--- NOTE | 2018-10-10 07:40 | NUR ---
RC'D PT RESTING IN BED WITH NO APPARENT SIGNS OF DISTRESS. A/A/O/X4, SPEECH CLEAR AND APPROPRIATE. PT DENIES DIZZINESS AND REPORTS SLIGHT AMARO AT THIS TIME. ON TELE, DENIES CHEST PAIN/PRESSURE. PALP PULSES, EDEMA NTOED TO BLE. RESPIRATIONS EQUAL AND UNLABORED. LUNGS CTA. ON 2L O2 VIA NC, DENIES SOB. ABDOMEN SOFT AND NONTENDER. ACTIVE BS. DENIES N/V. VOIDS FREELY. AMBULATORY. SKIN W/D/I. PT DENIES EXCESSIVE PAIN AT THIS TIME. IV PATENT AND INTACT. BED IN LOW POSITION. CALL LIGHT IN REACH. WILL CONTINUE TO MONITOR
[2018-10-10 09:05] VITALS: BP 135/88
--- NOTE | 2018-10-10 09:19 | NUR ---
BS SPOT CHECKED, 97. LANTUS SQ HELD AT THIS TIME. WILL NOTIFY MD AND MAKE AWARE
[2018-10-10 12:28] VITALS: BP 119/73
--- NOTE | 2018-10-10 12:29 | NUR ---
PT RESTING IN BED WITH NO APPARENT SIGNS OF DISTRESS. RESPIRATIONS EQUAL AND UNLABORED. ON RA, DENIES SOB. BED IN LOW POSIITON. CALL LIGHT IN REACH. WILL CONTINUE TO MONITOR
--- NOTE | 2018-10-10 15:24 | NUR ---
PT C/O OF SHOULDER PAIN 03/01, MEDICATED PER EMAR. VITALS STABLE. RESPIRATIONS EQUAL AND UNLABORED. ON 2L O2 VIA NC, DENIES SOB. BED IN LOW POSITION. CALL LIGHT IN REACH. WILL CONTINUE TO MONITOR
[2018-10-10 17:15] VITALS: BP 123/81
--- NOTE | 2018-10-10 18:25 | NUR ---
PT RESTING IN BED WITH NO APPARENT SIGNS OF DISTRESS. ON TELE, DENIES CHEST PAIN/PRESSURE. RESPIRATIONS EQUAL AND UNLABORED. PT DENIES SOB. AMBULATORY, STRICT I&O'S. IV PATENT AND INTACT. BED IN LOW POSIITON. CALL LIGHT IN REACH. WILL ENDORSE TO DEVELOPER TRADING SYSTEMS RN
[2018-10-10 19:10] VITALS: BP 96/65
--- NOTE | 2018-10-10 19:36 | NUR ---
RECEIVED PT IN BED ASLEEP BUT EASILY AROUSABLE.NO DISTRESS NOTED. DENIES ANY PRESSURE OR DISCOMFORT AT THIS TIME. IV SITE PATENT AND INTACT.BE DIN LOWEST POSITION,CALL LIGHT WITHIN REACH. WILL CONTINUE TO MONITOR.
[2018-10-10 21:01] VITALS: BP 107/75
--- NOTE | 2018-10-10 21:14 | NUR ---
PT C/O BACK PAIN 12/30. MEDICATED MORPHINE 2MG IV ORDERED. WILL CONTINUE TO MONITOR.
--- NOTE | 2018-10-11 05:09 | NUR ---
PT ASLEEP BUT EASILY AROUSABLE.NO ACUTE RESPIRATORY DISTRESS NOTED. NO S/S OF PAIN. BED IN LOWEST POSITION,CALL LIGHT WITHIN REACH. WILL CONTINUE TO MONITOR.
--- NOTE | 2018-10-11 05:39 | NUR ---
PT C/O BACK PAIN 11/29. MEDICATED NORCO 7.5/325MG PO ORDERED. WILL CONTINUE TO MONITOR.
[2018-10-11 05:46] VITALS: BP 129/86
[2018-10-11 06:22] LABS: CALCIUM 9.7 mg/dL (8.5-10.1); CARBON DIOXIDE 30.5 mmol/L (21-32); CREATININE SERUM 1.2 mg/dL (0.6-1.0); MAGNESIUM 1.7 mg/dL (1.8-2.4); PHOSPHOROUS 5.6 mg/dL (2.5-4.9); POTASSIUM SERUM 4.3 mmol/L (3.5-5.1)
[2018-10-11 06:23] LABS: PLATELET COUNT 218 x10^3mcL (130-400)
[2018-10-11 07:10] LABS: RED CELL DISTRIBUTION WIDTH 21.6 % (11.5-14.5)
--- NOTE | 2018-10-11 07:26 | NUR ---
CARE ENDORSED TO DAY NURSE MADI.
--- NOTE | 2018-10-11 07:50 | NUR ---
AWAKE,ALERT AND ORIENTED,DENIES ANY PAIN AT THIS TIME,ABLE TO AMBULATE IN [facility] BATHROOM AND VOIDING WELL. NO ACUTE RESP. DISTRESS NOTED. CALL LIGHT W/ IN REACH. WILL CONT. PLAN OF CARE.
[2018-10-11 08:16] VITALS: BP 125/79
[2018-10-11 11:38] LABS: SEGMENTED NEUTROPHILS 72 % (37-75)
[2018-10-11 11:39] LABS: ATYPICAL LYMPH 2 %; BAND NEUTROPHIL 0 % (0-10); BASOPHIL 0 % (0-2); MONOCYTE 12 % (0-7)
[2018-10-11 11:41] LABS: PLATELET MORPHOLOGY PLATELETS DECREASED; acanthocyte (spur cell) 2+; rbc morphology (normal/abnorm) ABNORMAL (NORMAL)
[2018-10-11 13:25] VITALS: BP 112/70
--- NOTE | 2018-10-11 14:00 | NUR ---
DENIES PAIN THE WHOLE DAY DR. SERRANO HERE AND SEEN THE PT. PT. WILL D/C HOME TODAY PT. MADE AWARE.
[2018-10-11] MEDS ORDERED: NEU300 PO (15:06)
[2018-10-11] MEDS ORDERED: ALD25 PO (15:08)
[2018-10-11] MEDS ORDERED: BUM1 PO (15:09)
[2018-10-11] MEDS ORDERED: APAP/HYDROCODON1 T13 PO (15:10)
[2018-10-11] MEDS ORDERED: LANTI SQ (15:10)
[2018-10-11 16:32] VITALS: BP 137/84
--- NOTE | 2018-10-11 18:00 | NUR ---
PT. WENT HOME W/ STABLE CONDITION PER W/C ACC. W/ HER DAUGHTER.DISCHARGED INSTRUCTIONS AND PRESCRIPTION GIVEN AND DISCUSSED TO PT. AND VERBALIZED UNDERSTANDING OF INSTRUCTION GIVEN NO ACUTE DISTRESS NOTED. ESCORTED BY CHU IN THE LOBBY.
[2018-10-12 11:27] VITALS: Ht 172.7 cm; Wt 108.0 kg
== END 2018-10-11 18:00 | disposition home or self-care (01) | DRG 194 ==
LOC: ED 10:59 → DU 13:39
PROVIDERS: Emergency Medicine; General Practice; ADMIT Internal Medicine
DX: I11.0 Hypertensive heart disease with heart failure (principal); I21.4 Non-ST elevation (NSTEMI) myocardial infarction; N17.0 Acute kidney failure with tubular necrosis; I50.43 Acute on chronic combined systolic (congestive) and diastolic (congestive) heart failure; E44.1 Mild protein-calorie malnutrition; E11.42 Type 2 diabetes mellitus with diabetic polyneuropathy; I42.9 Cardiomyopathy, unspecified; J44.9 Chronic obstructive pulmonary disease, unspecified; E66.9 Obesity, unspecified; Z68.35 Body mass index [BMI] 35.0-35.9, adult; Z79.84 Long term (current) use of oral hypoglycemic drugs; E78.5 Hyperlipidemia, unspecified
CPT/HCPCS: 82962; 83880; J1940; J2270; J2405; J3475; J3490; J7040; Q0092

== ENCOUNTER 2018-10-19 22:16 | Inpatient (IN) | payer OTHER ==
[~2018-10-19] VITALS: Ht 172.7 cm; Wt 100.0 kg
[~2018-10-19 22:16] MED LIST changes: +ALD25 PO; +APAP/HYDROCODON1 T13 PO; +LANTI SQ; +NEU300 PO
[2018-10-19 22:27] VITALS: Ht 172.7 cm; Wt 100.0 kg
[2018-10-19 23:03] LABS: PLATELET COUNT 184 x10^3mcL (130-400)
[2018-10-19 23:07] LABS: BASOPHIL % 0 % (0-2)
[2018-10-19 23:08] LABS: RED CELL DISTRIBUTION WIDTH 21.5 % (11.5-14.5)
[2018-10-19 23:15] LABS: acanthocyte (spur cell) 1+; ovalocyte/elliptocyte 1+; rbc morphology (normal/abnorm) ABNORMAL (NORMAL); schistocyte (helmet cell) 1+
[2018-10-19 23:16] LABS: CALCIUM 8.3 mg/dL (8.5-10.1); CREATININE SERUM 1.2 mg/dL (0.6-1.0); POTASSIUM SERUM 3.8 mmol/L (3.5-5.1)
[2018-10-19 23:25] LABS: BILIRUBIN TOTAL 0.3 mg/dL (0.20-1.00)
[2018-10-19 23:27] LABS: ALBUMIN 3.1 g/dL (3.4-5.0)
[2018-10-20 02:09] VITALS: BP 135/90; BP 140/90
[2018-10-20 02:32] VITALS: BP 135/90
[2018-10-20 02:41] LABS: CHOLESTEROL/HDL RATIO 2.7; MAGNESIUM 1.5 mg/dL (1.8-2.4); PHOSPHOROUS 3.9 mg/dL (2.5-4.9)
[2018-10-20 03:23] LABS: microscopic required? YES; urine erythrocyte NEGATIVE (NEGATIVE)
[2018-10-20 08:13] LABS: CALCIUM 8.8 mg/dL (8.5-10.1); CARBON DIOXIDE 26.6 mmol/L (21-32); CREATININE SERUM 1.1 mg/dL (0.6-1.0); POTASSIUM SERUM 3.8 mmol/L (3.5-5.1)
[2018-10-20 08:22] VITALS: BP 139/98
[2018-10-20 08:32] LABS: PLATELET COUNT 167 x10^3mcL (130-400)
[2018-10-20 08:42] LABS: RED CELL DISTRIBUTION WIDTH 21.6 % (11.5-14.5)
[2018-10-20 10:14] LABS: BAND NEUTROPHIL 0 % (0-10); BASOPHIL 0 % (0-2); MONOCYTE 4 % (0-7); SEGMENTED NEUTROPHILS 32 % (37-75)
[2018-10-20 10:15] LABS: rbc morphology (normal/abnorm) ABNORMAL (NORMAL)
[2018-10-20 10:16] LABS: ovalocyte/elliptocyte 1+; schistocyte (helmet cell) 1+
[2018-10-20 12:01] VITALS: BP 144/94
== END 2018-10-20 14:30 | disposition home or self-care (01) | DRG 190 ==
LOC: ED 22:16 → DU 10-20 00:56
PROVIDERS: Emergency Medicine; ADMIT Internal Medicine
DX: I21.A1 Myocardial infarction type 2 (principal); I50.23 Acute on chronic systolic (congestive) heart failure; E11.42 Type 2 diabetes mellitus with diabetic polyneuropathy; E11.65 Type 2 diabetes mellitus with hyperglycemia; E44.1 Mild protein-calorie malnutrition; I42.9 Cardiomyopathy, unspecified; I11.0 Hypertensive heart disease with heart failure; J44.9 Chronic obstructive pulmonary disease, unspecified; E66.9 Obesity, unspecified; Z68.34 Body mass index [BMI] 34.0-34.9, adult; Z79.4 Long term (current) use of insulin; Z79.82 Long term (current) use of aspirin
CPT/HCPCS: 82962; 83880; J2270; J2405; J3010; Q0092

== ENCOUNTER 2018-10-25 18:29 | Observation (INO) | payer OTHER ==
[~2018-10-25] VITALS: Ht 172.7 cm; Wt 106.3 kg
--- NOTE | 2018-10-25 18:51 | NUR ---
PT BROUGHT IN BY [facility]SON WITH C/O CHEST PAIN, BODY PAIN AND HEADACHE. AT BEDSIDE PT IS AAOX4. SKIN IS PINK, WARM AND DRY. PIN POINT PUPILS PT PLACED ON MONITOR. BED RAILS UP X1 FOR SAFETY. PT ORIENTED TO ROOM, USE OF CALL CUMMINGS AND BED IN LOWEST POSITION. PT IS CALM AND COOPERATIVE. MSE COMPLETED BY DR. JANG.
--- NOTE | 2018-10-25 19:03 | NUR ---
REPORT HAND-OFF TO GLADYS JUARES
--- NOTE | 2018-10-25 19:10 | NUR ---
PT MEDICATED PER MD ORDERS. PT VERBALIZES UNDERSTANDING OF RX. SEE EMAR FOR DETAILS.
[2018-10-25 19:23] LABS: PLATELET COUNT 199 x10^3mcL (130-400)
[2018-10-25 19:30] LABS: CALCIUM 8.8 mg/dL (8.5-10.1); CARBON DIOXIDE 28.9 mmol/L (21-32); CREATININE SERUM 1.2 mg/dL (0.6-1.0); POTASSIUM SERUM 3.7 mmol/L (3.5-5.1)
--- NOTE | 2018-10-25 19:32 | NUR ---
PT REPORTS 10/10 PAIN. PT REFUSED 2ND ROUND OF NITRO.
[2018-10-25 19:34] LABS: ALBUMIN 3.2 g/dL (3.4-5.0); BILIRUBIN TOTAL 0.9 mg/dL (0.20-1.00); TOTAL PROTEIN, SERUM 7.5 g/dL (6.4-8.2)
[2018-10-25 19:53] LABS: BAND NEUTROPHIL 0 % (0-10); BASOPHIL 0 % (0-2); METAMYELOCTE 1 % (0-2); MONOCYTE 4 % (0-7); SEGMENTED NEUTROPHILS 50 % (37-75)
[2018-10-25 19:55] LABS: rbc morphology (normal/abnorm) ABNORMAL (NORMAL); target cell (codocyte) 1+
[2018-10-25] MEDS ORDERED: CARVEDILOL12.5 M1 PO (20:41)
[2018-10-25] MEDS ORDERED: ZESTRIL20 MG PO (20:41)
--- NOTE | 2018-10-25 21:08 | NUR ---
REPORT GIVEN TO GLADYS ARNDT TO ASSUME CARE OF THE PT.
[2018-10-25 21:35] VITALS: BP 164/112
--- NOTE | 2018-10-25 21:38 | NUR ---
RECEIVED PT FROM ED VIA [facility]. ORIENTED PT TO ROOM AND SURROUNDINGS. IV NOTED TO RH PATENT AND INTACT. TELE [address] PT READ[address] WITH BBB. INSTRUCTED PT ON THE USE OF CALL LIGHT FOR ASSISTANCE. ENDORSED PT TO PRIMARY NURSE YRIS
--- NOTE | 2018-10-25 21:39 | NUR ---
RECEIVED PT FROM GLADYS MESSINA. PT A/OX4. DENIES CHEST PAIN/PRESSURE. C/O SOB ON RA. O2 SAT 95%. PT PLACED ON 2LNC PER REQUEST. DR DALE MADE AWARE OF BP. IV TO R HAND PATENT, FLUSHING WELL. ORIENTED PT TO ROOM AND SURROUNDINGS. CALL LIGHT WITHIN REACH, BED IN LOW POSITION. WILL CONTINUE TO MONITOR.
--- NOTE | 2018-10-26 02:01 | NUR ---
PT RESTING IN NO ACUTE DISTRESS. RR EVEN AND UNLABORED. IV PATENT. CALL LIGHT WITHIN REACH, BED IN LOW POSITION. WILL CONTINUE TO MONITOR.
[2018-10-26 04:09] VITALS: BP 133/97
[2018-10-26 06:29] LABS: CALCIUM 8.7 mg/dL (8.5-10.1); CREATININE SERUM 1.2 mg/dL (0.6-1.0); POTASSIUM SERUM 3.7 mmol/L (3.5-5.1)
--- NOTE | 2018-10-26 07:15 | NUR ---
RECEIVED PATIENT FROM [facility] NURSE. PATIENT IS AWAKE, ALERT AND ORIENTED. PATIENT IS RESTING WITH BOTH EYES CLOSED, AROUSABLE. TELE#27, SR WITH BBB AND DEPRESSED T WAVE, HR 94. ON 2L NC, BREATHING EVEN AND UNLABORED. IV NOTED TO RIGHT HAND, SALINE LOCKED, NO S/S ERYTHEMA AT SITE. CALL LIGHT WITHIN EASY REACH. WILL CONTIUE PLAN OF CARE.
[2018-10-26 08:19] LABS: BASOPHIL % 0.7 % (0-2); PLATELET COUNT 194 x10^3mcL (130-400)
[2018-10-26 08:25] VITALS: BP 133/97
[2018-10-26 10:06] LABS: ovalocyte/elliptocyte 1+; tear drop cell (dacryocyte) 1+
[2018-10-26 10:07] LABS: rbc morphology (normal/abnorm) ABNORMAL (NORMAL); target cell (codocyte) 1+
[2018-10-26 13:11] VITALS: BP 121/82
--- NOTE | 2018-10-26 14:19 | NUR ---
PATIENT DC'D AT THIS TIME. AWAKE, ALERT AND ORIENTED. DENIES SOB AND CHEST PAIN. VS STABLE. ALL DC INSTRUCTIONS GIVEN TO PATIENT. ALL QUESTIONS ANSWERED REGARDING DC. TELE MONITOR REMOVED AND RETURNED TO JEWELRY BENCH MOLDER. ASLL PERSONAL BELONGINGS TAKEN WITH PATIENT. PATIENT TAKEN DOWN TO DC OFFICE BY CHU WALTON.
[2018-10-30 11:35] VITALS: Ht 172.7 cm; Wt 106.3 kg
== END 2018-10-26 14:23 | disposition home or self-care (01) | DRG 203 ==
LOC: ED 18:29 → DU 20:33 → EDBEDREQ 21:09 → DU 21:10 → EDBD 10-26 14:23 → DU 10-26 14:23
PROVIDERS: Emergency Medicine; ADMIT Family Medicine
DX: M94.0 Chondrocostal junction syndrome [Tietze] (principal); N17.0 Acute kidney failure with tubular necrosis; I42.9 Cardiomyopathy, unspecified; E11.42 Type 2 diabetes mellitus with diabetic polyneuropathy; E44.1 Mild protein-calorie malnutrition; E11.65 Type 2 diabetes mellitus with hyperglycemia; I50.9 Heart failure, unspecified; I11.0 Hypertensive heart disease with heart failure; E66.9 Obesity, unspecified; Z68.33 Body mass index [BMI] 33.0-33.9, adult
CPT/HCPCS: 82962; 83880; G0378; J1885; J1940; J2270; Q0092

== ENCOUNTER 2018-11-03 20:33 | Inpatient (IN) | payer OTHER ==
[~2018-11-03] VITALS: Ht 172.7 cm; Wt 99.8 kg
[~2018-11-03 20:33] MED LIST changes: +CARVEDILOL12.5 M1 PO; +ZESTRIL20 MG PO
--- NOTE | 2018-11-03 20:50 | NUR ---
EKG IN PROGRESS IN TRIAGE.
[2018-11-03 22:25] LABS: BASOPHIL % 0.2 % (0-2); PLATELET COUNT 248 x10^3mcL (130-400)
[2018-11-03 22:28] LABS: RED CELL DISTRIBUTION WIDTH 22.6 % (11.5-14.5)
[2018-11-03 22:35] LABS: rbc morphology (normal/abnorm) ABNORMAL (NORMAL); tear drop cell (dacryocyte) 1+
[2018-11-03 22:38] LABS: CARBON DIOXIDE 25.3 mmol/L (21-32); CREATININE SERUM 1.2 mg/dL (0.6-1.0); POTASSIUM SERUM 3.8 mmol/L (3.5-5.1)
[2018-11-03 22:43] LABS: BILIRUBIN TOTAL 0.56 mg/dL (0.20-1.00); TOTAL PROTEIN, SERUM 7.6 g/dL (6.4-8.2)
[2018-11-03 22:58] LABS: ALBUMIN 3.1 g/dL (3.4-5.0)
--- NOTE | 2018-11-03 23:41 | NUR ---
PATIENT WAS GIVEN LASIX. GOT UP TO THE COMMODE AND VOID.
--- NOTE | 2018-11-04 00:20 | NUR ---
PATIENT MEDICATED WITH FENTANYL FOR PAIN , COMPLAINT OF CHEST PAIN, BACK PAIN , KNEE PAIN.
[2018-11-04 01:12] LABS: CHOLESTEROL/HDL RATIO 2.5
--- NOTE | 2018-11-04 01:45 | NUR ---
PATIENT IS SLEEPING.
--- NOTE | 2018-11-04 01:50 | NUR ---
REPORT WAS GIVEN TO URSZULA. PATIENT TRANSPORTED TO ROOM 241B
--- NOTE | 2018-11-04 02:08 | NUR ---
RECEIVED PT FROM ED WEST ACCOMPANIED BY NURSE. NO S/S ACUTE DISTRESS. BREATHING E/U ON RA. C/O HEADACHE, WILL MEDICATE PER EMAR. DENIES CP. TELE #34 SHOWING SINUS TACHYCARDIA. NITRO PATCH NOTED TO L UPPER CHEST. ORIENTED TO SURROUNDINGS. WILL CONTINUE TO MONITOR.
[2018-11-04 02:20] VITALS: BP 171/117
[2018-11-04 02:43] VITALS: BP 141/84
--- NOTE | 2018-11-04 02:44 | NUR ---
PAGED DR. DALE REGARDING TROP 0.140 AND NEED FOR ACCUCHECK ORDER. WAITING FOR CALLBACK.
--- NOTE | 2018-11-04 02:54 | NUR ---
DR. DALE AWARE OF TROP 0.140. WAITING FOR ORDERS.
--- NOTE | 2018-11-04 03:31 | NUR ---
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
[2018-11-04 04:25] VITALS: BP 143/98
[2018-11-04 06:58] LABS: BASOPHIL % 0.7 % (0-2); PLATELET COUNT 223 x10^3mcL (130-400)
[2018-11-04 07:03] LABS: CALCIUM 8.8 mg/dL (8.5-10.1); CARBON DIOXIDE 30.3 mmol/L (21-32); CREATININE SERUM 1.1 mg/dL (0.6-1.0); POTASSIUM SERUM 3.6 mmol/L (3.5-5.1)
[2018-11-04 07:41] LABS: RED CELL DISTRIBUTION WIDTH 22.3 % (11.5-14.5)
[2018-11-04 08:20] VITALS: BP 142/85
--- NOTE | 2018-11-04 09:30 | NUR ---
AM SCHEDULED MEDS GIVEN. PATIENT STATED SHE WOULD LIKE TO BE DISCHARGED HOME TODAY DUE TO FAMILY EVENTS. DENIES PAIN CHEST PAIN. TOLERATED TO DIET WELL. TRACE EDEMA TO BLE, PEDAL PULSES PALPABLE.
--- NOTE | 2018-11-04 10:31 | NUR ---
DOCTOR ROBERT AND MEDICAL TEAM AT BEDSIDE FOR AM ROUND. CURRENT CONDITION UPDATED. PATIENT MADE AWARE PLAN OF CARE.
[2018-11-04 11:59] VITALS: BP 142/85
--- NOTE | 2018-11-04 12:25 | NUR ---
DISCHARGE INSTRUCTION GIVEN TO PATIENT WHO IS AWAKE, ALERT, ORIENTED X4. S/L TO RT HAND REMOVED WITH CATHETER INTACT, DRSG APPLIED. TELEMETRY REMOVED AND CLEANED WILL RETURN TO MT. DENIES CHEST PAIN OR CHEST PRESSURE. STATED WILL HAVE LUNCH BEFORE DISCHARGE.
--- NOTE | 2018-11-04 12:34 | NUR ---
PATIENT WILL BE DISCHARGED AFTER LUNCH. REFUSED TROPONIN DRAW AT THIS TIME. DOCTOR KALEY MADE AWARE.
--- NOTE | 2018-11-04 12:38 | NUR ---
BROUGHT VIA WHEELCHAIR BY CHU WALTON. DISCHARGE HOME WITH STABLE CONDITION.
[2018-11-06 08:59] VITALS: Ht 172.7 cm; Wt 99.8 kg
== END 2018-11-04 12:38 | disposition home or self-care (01) | DRG 194 ==
LOC: ED 20:33 → DU 11-04 00:56 → EDBD 11-04 12:38
PROVIDERS: Emergency Medicine; ADMIT Internal Medicine
DX: I11.0 Hypertensive heart disease with heart failure (principal); J96.00 Acute respiratory failure, unspecified whether with hypoxia or hypercapnia; I21.A1 Myocardial infarction type 2; I50.9 Heart failure, unspecified; N17.0 Acute kidney failure with tubular necrosis; E11.42 Type 2 diabetes mellitus with diabetic polyneuropathy; E11.65 Type 2 diabetes mellitus with hyperglycemia; E44.1 Mild protein-calorie malnutrition; I42.9 Cardiomyopathy, unspecified; J44.9 Chronic obstructive pulmonary disease, unspecified; E66.9 Obesity, unspecified; Z68.33 Body mass index [BMI] 33.0-33.9, adult; Z79.4 Long term (current) use of insulin; Z79.82 Long term (current) use of aspirin; Z79.891 Long term (current) use of opiate analgesic; Z76.5 Malingerer [conscious simulation]; Z91.14 Patient's other noncompliance with medication regimen
CPT/HCPCS: 82962; 83880; G0378; J1940; J3010; J7030; Q0092

== ENCOUNTER 2018-11-12 20:35 | Inpatient (IN) | payer OTHER ==
[~2018-11-12] VITALS: Ht 172.7 cm; Wt 108.0 kg
[2018-11-12 20:38] VITALS: Ht 172.7 cm; Wt 108.0 kg
--- NOTE | 2018-11-12 20:43 | NUR ---
EKG IN PROGRESS
--- NOTE | 2018-11-12 20:50 | NUR ---
PT C/O CHEST PAIN AND SOB X2 DAYS. PT STS THAT SHE WAS JUST SITTING ON HER COUCH A FEW DAYS AGO WHEN STARTING TO EXPERIENCE CP AND SOB. PT STS THAT TODAY IT GOT SIGNIFICANTLY WORSE, PROMPTING HER TO COME IN. PT DESCRIBES PAIN 10/10 SHARP PAIN OVER LEFT UPPER CHEST, RADIATING DOWN LEFT ARM. PT PLACED ON HOTEL DINING ROOM CASHIER. TACHYCARDIA AND BB BLOCK NOTED. PT REPORTS HX OF CHF, COPD, AND ASTHMA. PT REPORTS PAIN IN LENKA LOWER LEGS AND MID BACK. BREATH SOUNDS CLEAR THROUGHOUT, SHALLOW LABORED BREATHING NOTED. PT PLACED ON CONTINUOUS PULSE OX, PT SATURATING AT 99% RA. GLADYS CAROLINA AT BEDSIDE FOR IV PLACEMENT. AT BEDSIDE FOR MSE. WILL CONTINUE TO MONITOR.
--- NOTE | 2018-11-12 20:57 | NUR ---
X-RAY AT BEDSIDE
--- NOTE | 2018-11-12 21:03 | NUR ---
1GM NITRO PASTE ADMINISTERED TO R CHEST. 172/98. HR 116
--- NOTE | 2018-11-12 21:08 | NUR ---
0.4MG SUBL NITRO 1/3 GIVEN. WILL REASSESS IN 5MIN
[2018-11-12 21:10] LABS: PLATELET COUNT 233 x10^3mcL (130-400)
[2018-11-12 21:13] LABS: BASOPHIL % 4.7 % (0-2)
--- NOTE | 2018-11-12 21:15 | NUR ---
0.4MG SUBL NITRO ADMINISTERED. 155/117(135), HR 113
--- NOTE | 2018-11-12 21:21 | NUR ---
3/3 0.4MG SUBL NITRO ADMINISTERED. 165/11(126), HR 113
[2018-11-12 21:26] LABS: CALCIUM 9.1 mg/dL (8.5-10.1); CARBON DIOXIDE 28.8 mmol/L (21-32); CREATININE SERUM 1.2 mg/dL (0.6-1.0); POTASSIUM SERUM 3.6 mmol/L (3.5-5.1)
[2018-11-12 21:29] LABS: rbc morphology (normal/abnorm) ABNORMAL (NORMAL); target cell (codocyte) 1+
[2018-11-12 21:30] LABS: BILIRUBIN TOTAL 0.5 mg/dL (0.20-1.00)
--- NOTE | 2018-11-12 21:30 | NUR ---
RT AT BEDSIDE ADMINISTERING BREATHING TREATMENT
[2018-11-12 21:35] LABS: ALBUMIN 3.1 g/dL (3.4-5.0)
--- NOTE | 2018-11-12 21:36 | NUR ---
MEDICATION ADMINISTERD PER MD ORDER
--- NOTE | 2018-11-12 22:00 | NUR ---
PT AWAKE AND ALERT, LAYING IN POSITION OF COMFORT. 2 RAILS UP, BED IN LOW AND LOCKED POSITION, CALL LIGHT W/IN REACH. PT REPORTS REDUCTION IN PAIN TO 7/10. PT REPORTS STILL FEELING SOB, BUT FEELS THAT SHE IS BREATHING A LOT BETTER THAN WHEN SHE ARRIVED. WILL CONTINUE TO MONITOR.
--- NOTE | 2018-11-12 22:30 | NUR ---
MEDICATION ADMINISTERED PER MD ORDER
--- NOTE | 2018-11-12 22:30 | NUR ---
20MG LABETALOL ADMINISTERED PER MD ORDER. VS DOCUMENTED. WILL CONTIUE TO MONITOR
--- NOTE | 2018-11-12 23:07 | NUR ---
PT AWAKE AND ALERT, LAYING IN POSITION OF COMFORT. VSS, RESPS E/U, NAD NOTED AT THIS TIME. PT SATURATING AT 92% ON RA, PLACED ON 1L O2 VIA NC. CALL LIGHT W/IN REACH. AWAITING BED ASSIGNMENT.
[2018-11-12 23:21] LABS: CHOLESTEROL/HDL RATIO 2.2
--- NOTE | 2018-11-12 23:28 | NUR ---
REPORT GIVEN TO LION
--- NOTE | 2018-11-12 23:36 | NUR ---
RECEIVED PT VIA [facility] FROM E/D, ACCOMPANIED BY RN AND TRANSPORTER. PT A/A/O X 4, CALM, COOPERATIVE; WEARS GLASSES (W/ PT). PT W/ GENERALIZED WEAKNESS BUT ABLE TO AMBULATE W/ SLOW STEADY GAIT FROM GUERNEY TO BED, AMBULATES W/ WALKER AT HOME, FALL RISK PROTOCOL IN PLACE. PT W/ HX OF MRSA NARES, PLACED ON CONTACT ISOLATION. ON TELE # 10, HR 72, SR + BBB + DEPRESSED ST, STATES INTERMITTENT SHARP PAIN TO LEFT CHEST RADIATING TO LEFT ARM 10/30, EXACERBATED BY COUGHING AND MILDLY RELIEVED BY PAIN MEDICATION; DIZZINESS W/ AMBULATION. LENKA RADIAL AND PEDAL PULSES PRESENT, NO EDEMA, CAP REFILL < 3 SECS, NEUROPATHY TO BLE, SCD BY BEDSIDE. BUL INSPIRATORY RALES, BLL WHEEZING, CHEST RISING EVENLY, 2LNC, 97%, SOB UPON EXERTION, DRY COUGH. ABD SOFT, ROUND, NON-TENDER, NORMOACTIVE BOWEL SOUNDS X 4 QUADS, LAST BM 11/12/18, SOFT, +NAUSEA; POOR PO INTAKE > 3 DAYS. IV SITE RAC 20G, CDI. ORIENTED PT TO ROOM, BED CONTROLS, CALL LIGHT SYSTEM. SIDE RAILS UP X 2, BED IN LOW POSITION. WILL ENDORSE TO GLAYDS JONES.
--- NOTE | 2018-11-12 23:50 | NUR ---
RECEIVED PATIENT FROM GLADYS TEJEDA. PATIENT WAS SEEN AND IS RESTING COMFORTABLY IN BED. NO DISTRESS NOTED. DENIES CHEST PAIN AT THIS TIME. BREATHING EVEN, SOB WITH EXCERATION NOTED. DRY COUGH NOTED. ON 2L NC. IV TO THE RAC, 20G, PATENT AND INTACT. NO REDNESS OR SWELLING NOTED. C/O TOLERABLE PAIN AT THIS TIME NOT REQUESTING PAIN MEDS. COMFORT AND SAFETY MEASURS IN PLACE. BED IS LOCKED AND IN THE LOWEST POSITION. SIDE RAILS UP X1. CALL LIGHT IS WITHIN REACH. INSTRUCTED PATIENT TO CALL FOR ASSISTANCE. WILL CONTINUE TO MONITOR.
[2018-11-12 23:58] VITALS: BP 104/75
[2018-11-13 01:00] VITALS: BP 104/75
--- NOTE | 2018-11-13 01:30 | NUR ---
PATIENT C/O 10/10 PAIN IN HER BACK AND BODY. PRN NORCO WAS ADMINISTERED PRESCRIBED. PATIENT ALSO ASSISTED TO THE RESTROOM. PATIENT EDUCATED ABOUT STRICT I/0 AND FLUID RESTRICTION OG 1200ML/DAY. PATIENT VERBALIZED UNDERSTANDING. CHU SANCHEZ WILL COLLECT URINE FOR UA/UDS. WILL CONTINUE TO MONITOR AND REASSESS PAIN LEVEL.
[2018-11-13 02:03] LABS: UA SPECIFIC GRAVITY 1.015 (1.005-1.035); microscopic required? YES; urine erythrocyte TRACE (NEGATIVE)
[2018-11-13 02:12] LABS: AMPHETAMINE QUAL UR NONE DETECTED (See below)
--- NOTE | 2018-11-13 02:20 | NUR ---
PATIENT IS RESTING COMFORTABLY IN BED WITH EYES CLOSED. NO DISTRESS NOTED. ON 2L NC. BREATHIN EVEN, NO SOB NOTED. IV TO THE RAC INFUSING WELL. SAFETY MEASURES IN PLACE. CALL LIGHT IS WITHIN REACH. WILL CONTINUE TO MONITOR.
--- NOTE | 2018-11-13 05:27 | NUR ---
PATIENT SLEPT IN INTERVALS THROUGHOUT THE NIGHT. NO ACUTE CHANGES NOTED. BREATHING EVEN ON 2L NC. NO SOB NOTED AT THIS TIME. C/O PAIN X1 THROUGHOUT THE NIGHT. DENIES CHEST PAIN AT THIS TIME. IV TO THE RAC INFUSING WELL. PATIENT AWARE OF STRICT I/0 AND FLUID RESTRICTION OF 1200ML/DAY. SAFETY MEASURES IN PLACE. CALL LIGHT IS WITHIN REACH. WILL CONTINUE TO MONITOR AND ENDORSE CARE TO DAY SHIFT RN.
--- NOTE | 2018-11-13 05:43 | NUR ---
C/O 8/10 HEADACHE FROM NITRO PATCH AND BACK PAIN. MEDICATED WITH PRN NORCO PRESCRIBED. BS 178 AND GAVE 3U OF REGULAR INSULIN. WILL CONTINUE TO MONITOR AND REASSESS PAIN LEVEL. CALL LIGHT IS WITHIN REACH.
[2018-11-13 05:48] VITALS: BP 114/81
[2018-11-13 07:39] LABS: PLATELET COUNT 209 x10^3mcL (130-400)
[2018-11-13 08:13] LABS: CALCIUM 8.6 mg/dL (8.5-10.1); CARBON DIOXIDE 33.3 mmol/L (21-32); CREATININE SERUM 1.1 mg/dL (0.6-1.0); POTASSIUM SERUM 4.1 mmol/L (3.5-5.1)
[2018-11-13 08:14] LABS: RED CELL DISTRIBUTION WIDTH 22.5 % (11.5-14.5)
[2018-11-13 08:20] VITALS: BP 131/76
--- NOTE | 2018-11-13 09:35 | NUR ---
ADMINISTERED MEDICATION PER JUL. PATIENT RECEIVED NORCO PO, PRN FOR PAIN, COMPLAINING OF HEADACHE 10/30. LANTUS NOT AVAILABLE IN [place] SO PHARMACY WAS CALLED TO BRING VIAL UP. WILL ADMINISTER WHEN ARRVIES. CALL LIGHT WITHIN REACH FOR PATIENT. WILL RETURN TOP REASSES PAIN
--- NOTE | 2018-11-13 09:46 | NUR ---
PER ROUNDING PHYSICIANS, PATIENT WILL BE ABLE TO DC HOME TODAY
--- NOTE | 2018-11-13 11:29 | NUR ---
PATIENT BG WAS 137, NO COVERAGE NEEDED PER SLIDING SCALE. PATIENT AMBULATED TO RESTROOM WITHOUT ASSISTANCE. CALL LIGHT REMAINES IN REACH ON BED
[2018-11-13 12:07] VITALS: BP 94/65
--- NOTE | 2018-11-13 12:38 | NUR ---
PATIENT RESTING COMFORTABLY IN BED, AWAITING LUNCH TRAY. CALL LIGHT WITHIN REACH NO COMPLAINTS AT THIS TIME
--- NOTE | 2018-11-13 14:52 | NUR ---
ADMINISTERED MEDICIATIONS PER JUL. PATIENT RESTING AT THIS TIME, REPORTED THAT SHE TOLD RP THAT SHE DID WANT THE BREATHING TREATMENT AND TOLD THEM TO RETURN LATER
[2018-11-13 15:22] LABS: BAND NEUTROPHIL 0 % (0-10); BASOPHIL 0 % (0-2); MONOCYTE 4 % (0-7); SEGMENTED NEUTROPHILS 36 % (37-75); rbc morphology (normal/abnorm) ABNORMAL (NORMAL)
[2018-11-13 15:23] LABS: PLATELET MORPHOLOGY PLATELETS DECREASED
--- NOTE | 2018-11-13 16:54 | NUR ---
BLOOD SUGAR RESULT WAS 181, ADMINISTERED 3 UNITS REGULAR INSULIN PER JUL. MURIEL RN COSIGNED. PATIENT RESTING AT THIS TIME. WAITING FOR MEAL TRAY
[2018-11-13 17:18] VITALS: BP 109/71
[2018-11-13 17:24] VITALS: BP 109/71
--- NOTE | 2018-11-13 18:07 | NUR ---
PATIENT READY FOR DISCHARGE. TELE MONITOR #10 REMOVED BY PATIENT SO SHE CAN DRESS. FAMILY HAS BEEN CALLED AND WILL BE COMING FOR PATIENT. PATIENT GIVEN COPY OF DUISCHARGE INSTRUCTIONS AND EDUCATION. ALL QUESTIONS ANSWERED. FOLLOW UP APPOINTMENT HAS BEEN MADE AND PATIENT IS AWARE. INSTRUCTED PATIENT TO CALL FOR NURSE AND MANAGER UTILIZATION WHEN FAMILY HAS ARRIVED TO BE TAKEN OFF UNIT AND IV REMOVED
--- NOTE | 2018-11-13 18:16 | NUR ---
PATIENT FAMILY ARRIVED DOWNSTAIRS. REMOVED PT IV, CATH INTACT, SITE WNL. PATIENT ESCORTED OFF UNIT WITH CHU ACUNA WITH ALL BELONGINGS.
== END 2018-11-13 18:35 | disposition home or self-care (01) | DRG 190 ==
LOC: ED 20:35 → DU 22:23 → EDBD 11-13 18:35 → DU 11-13 18:35
PROVIDERS: Emergency Medicine; ADMIT General Practice
DX: I24.9 Acute ischemic heart disease, unspecified (principal); I21.A1 Myocardial infarction type 2; J96.00 Acute respiratory failure, unspecified whether with hypoxia or hypercapnia; N17.0 Acute kidney failure with tubular necrosis; I50.9 Heart failure, unspecified; J44.1 Chronic obstructive pulmonary disease with (acute) exacerbation; I16.1 Hypertensive emergency; E11.42 Type 2 diabetes mellitus with diabetic polyneuropathy; E11.65 Type 2 diabetes mellitus with hyperglycemia; I42.9 Cardiomyopathy, unspecified; E44.0 Moderate protein-calorie malnutrition; I25.10 Atherosclerotic heart disease of native coronary artery without angina pectoris; Z76.5 Malingerer [conscious simulation]; I25.2 Old myocardial infarction; Z79.4 Long term (current) use of insulin; Z79.82 Long term (current) use of aspirin; Z68.33 Body mass index [BMI] 33.0-33.9, adult; Z79.84 Long term (current) use of oral hypoglycemic drugs; Z91.14 Patient's other noncompliance with medication regimen
CPT/HCPCS: 82962; 83880; 94150; G0378; J1815; J1940; J2270; J2405; J3490; J7030; J7620; Q0092

== ENCOUNTER 2018-11-23 23:40 | Inpatient (IN) | payer OTHER ==
[~2018-11-23] VITALS: Ht 172.7 cm; Wt 108.6 kg
[2018-11-23 23:45] VITALS: Ht 172.7 cm; Wt 108.6 kg
[2018-11-24] VITALS (8 sets, daily range): BP systolic 110–168; BP diastolic 75–118
--- NOTE | 2018-11-24 | NUR ---
PT PRESENTS TO ED WITH C/O CHEST PAIN, COUGH, AND SOB SINCE YESTERDAY. PER PT SHE EXPERIENCES THESE SYMPTOMS OFTEN. PT STATES THAT HER CHEST PAIN IS LOCATED ON THE L SIDE AND RADIATES TO R SHOULDER AND BACK. PT STATES THAT HER PAIN IS RATED AT 10/10 AT THIS TIME. PT STATES THAT PAIN IS WORSE WITH COUGHING. PT STATES TO TAKING ALL OF HER DAILY MEDICATIONS PRESCRIBED AND HAVING TO TAKE NEBULIZED ALBUTEROL TREATMENTS SEVERAL TIMES TODAY. PT STATES TO HEADACHE AND COUGH. PT NOTED WITH CLEAR LUNG SOUNDS BILATERALLY AND 98% O2 SAT ON MONITOR. PT AOX4, RESP EVEN AND UNLABORED, NO ACUTE DISTRESS NOTED.
[2018-11-24 00:35] LABS: PLATELET COUNT 284 x10^3mcL (130-400)
[2018-11-24 00:38] LABS: BASOPHIL % 13.7 % (0-2); RED CELL DISTRIBUTION WIDTH 22.4 % (11.5-14.5)
--- NOTE | 2018-11-24 00:40 | NUR ---
PT ASSISTED ONTO BEDSIDE COMMODE T0 PROVIDE URINE SAMPLE. PT TOLERATED ACTIVITY WELL. PT ASSISTED BACK TO BED WITH NO INCIDENCES. WILL CONTINUE TO MONITOR.
[2018-11-24 00:48] LABS: CALCIUM 8.6 mg/dL (8.5-10.1); CARBON DIOXIDE 31.6 mmol/L (21-32); CREATININE SERUM 1.1 mg/dL (0.6-1.0)
[2018-11-24 00:57] LABS: BILIRUBIN TOTAL 0.4 mg/dL (0.20-1.00); FREE T4 1.1 ng/dL (0.76-1.46); TOTAL PROTEIN, SERUM 7.8 g/dL (6.4-8.2)
[2018-11-24 01:04] LABS: ALBUMIN 3.1 g/dL (3.4-5.0)
--- NOTE | 2018-11-24 01:45 | NUR ---
PT STATES "CAN I GET SOMETHING FOR MY PAIN, THE DOCTOR SAID HE WOULD GIVE ME SOMETHING". DR MOSS MADE AWARE. AWAITING ORDERS AT THIS TIME. PT IN NAD. BREATHING EVEN AND UNLABORED. CM AND [address] PT A&0X4, SPEAKING FULL CLEARS SENTENCES. WILL CONTINUE TO MONITOR.
[2018-11-24 02:23] LABS: microscopic required? YES; urine erythrocyte NEGATIVE (NEGATIVE)
--- NOTE | 2018-11-24 02:25 | NUR ---
PT MEDICATED PER MD ORDERS. PT TOLERATED WELL.
[2018-11-24 02:34] LABS: AMPHETAMINE QUAL UR NONE DETECTED (See below)
--- NOTE | 2018-11-24 02:55 | NUR ---
PT REQUESTING BLANKET. WARM BLANKET PROVIDED FOR PT COMFORT. PT DENIES ANY C/O OF CHEST PAIN.
--- NOTE | 2018-11-24 03:05 | NUR ---
REPORT GIVEN TO NAZARIO GRAHAM.
--- NOTE | 2018-11-24 03:13 | NUR ---
PT TRANSFERED TO TELE AT THIS TIME IN NAD. BREATHING EVEN AND UNLABORED. PT A&0X4, SPEAKING FULL CLEAR SENTENCES. PT ACKNOWLEDGED UNDERSTANDING OF PLAN OF CARE. PT TRANSFERED VIA [facility] ACCOMPANIED BY EMT HOOD AND RN DIDIER. PT BELONGINGS ARE SENT WITH PT.
--- NOTE | 2018-11-24 03:30 | NUR ---
HEPARIN GTT INFUSING AT 1300 UNITS/HR PER PROTOCOL. VERIFIED AT BEDSIDE BY GLADYS ARNDT. NEXT PTT ORDERED FOR 0730.
--- NOTE | 2018-11-24 03:30 | NUR ---
RECEIVED PT FROM ED. PT AOX4. DENIES DIZZINESS, C/O AMARO. SPEECH CLEAR, ANSWERS QUESTIONS APPROPRIATELY. PLACED ON TELE #18, ST WITH BBB. C/O SOME CHEST DISCOMFORT. DENIES SOB/DIFFICULTY BREATHING, ON 2L NC. BOWEL SOUNDS ACTIVE. C/O NAUSEA. IV TO L. HAND INTACT AND PATENT. BED IN LOWEST POSITION. CALL LIGHT WITHIN REACH. WILL CONTINUE TO MONITOR.
[2018-11-24 04:04] LABS: CHOLESTEROL/HDL RATIO 2.5; MAGNESIUM 1.8 mg/dL (1.8-2.4)
--- NOTE | 2018-11-24 05:15 | NUR ---
PT EKG SHOWED ACUTE LA, BP 168/118 (139), HR 103, O2 100% ON 2L NC. DR. DIALLO NOTIFIED. DR. GOLDSTEIN NOTIFIED. ORDER RECEIVED FOR IVP HYDRALAZINE. WILL MEDICATE ONCE MED IS VERIFIED BY PHARMACY. NO FURTHER ORDERS PER DR. GOLDSTEIN. PT IN NO ACUTE DISTRESS. WILL CONTINUE TO MONITOR.
--- NOTE | 2018-11-24 07:10 | NUR ---
RECEIVED BEDSIDE REPORT FROM [employer] SUPPORT FITTER NURSE. PATIENT RESTING COMFORTABLY IN BED. NO APPARENT DISTRESS OR DISCOMFORT NOTED. BREATHING EVEN AND UNLABORED. 2L NC IN PLACE AND PATIENT TOLERATING WELL. PATIENT DENIES CHEST PAIN/PRESSURE. IV PATENT AND INTACT. HEPARIN DRIP INFUSING AT 1300 UNITS/HR ALL QUESTIONS AND CONCERNS ADDRESSED. ALL NEEDS ATTENDED TO. WILL CONTINUE TO MONITOR
--- NOTE | 2018-11-24 10:00 | NUR ---
DR DIALLO AWARE PATIENT TROP 0.160 AND PTT 75.7 WITH HEPARIN DRIP. PER DR DIALLO, DR GOLDSTEIN ON CASE. NO CHANGE IN ORDERS. PER HEPARIN PROTOCOL PTT BETWEEN 66-90 REDUCE INFUSION BY 2 UNITS/HR. INFUSION RATE CHANGED FROM 1300 UNITS/HR TO 1100 UNITS/HR. GLADYS SALDANA AT BEDSIDE TO VERIFY INFUSION RATE CHANGE. PER HEPARIN PROTOCOL, WILL RE ORDER PTT FOUR HOURS FROM NOW.
--- NOTE | 2018-11-24 10:36 | NUR ---
ALL MORNING MEDICATIONS ADMINISTERED. PATIENT TOLERATED MEDICATION WELL. NO APPARENT DISTRESS OR DISCOMFORT NOTED. NO ADVERSE EFFECTS NOTED. ALL NEEDS ATTENDED TO. WILL CONTINUE TO MONITOR
--- NOTE | 2018-11-24 12:00 | NUR ---
BLOOD SUGAR 190 AT THIS TIME. 2 UNITS OF INSULIN REQUIRED (SEE EMAR). NO APPARENT DISTRESS OR DISCOMFORT NOTED. ALL NEEDS ATTENDED TO. WILL CONTINUE TO MONITOR
--- NOTE | 2018-11-24 14:28 | NUR ---
ECHO NOT DONE. PATIENT HAD ECHO HERE AT [facility] AUGUST 2018.
--- NOTE | 2018-11-24 14:33 | NUR ---
HEPARIN DRIP DISCONTINUED AT THIS TIME PER DR GOLDSTEIN ORDER. ALL NEEDS ATTENDED TO. WILL CONTINUE TO MONITOR
--- NOTE | 2018-11-24 15:00 | NUR ---
REPORTED TO DR DIALLO TROPONIN 0.138 AT THIS TIME. TROPONIN IS TRENDING DOWN. NO CHANGE IN ORDER. ALL NEEDS ATTENDED TO. WILL CONTINUE TO MONITOR
--- NOTE | 2018-11-24 16:39 | NUR ---
PATIENT BLOOD SUGAR 114 AT THIS TIME. NO INSULIN COVERAGE REQUIRED AT THIS TIME. WILL CONTINUE TO MONITOR
--- NOTE | 2018-11-24 18:36 | NUR ---
PATIENT RESTING COMFORTABLY IN BED AT THIS TIME. NO APPARENT DISTRESS OR DISCOMFORT NOTED. IV PATENT AND INTACT. ALL QUESTIONS AND CONCERNS ADDRESSED. SAFETY PRECAUTIONS MAINTAINED. ALL NEEDS ATTENDED TO. WILL ENDORSE ALL CARE TO SUPERVISOR [employer] NURSE
--- NOTE | 2018-11-24 18:38 | NUR ---
PATIENT C/O NOT BEING ABLE TO EAT DINNER BECAUSE SHE "DOES NOT EAT THAT KIND OF CHICKEN" AND SHE WOULD LIKE A CHEESEBURGER. CALLED DOWN TO KITCHEN AT THIS TIME. PER DIETARY, THEY ARE NOT SERVING HOT FOODS AT THIS TIME ONLY FOOD IS PREMADE SANDWICHES. OFFERED PATIENT TUNA SANDWICH, EGGSALAD SANDWICH, AND PEANUTBUTTER SANDWICH. PATIENT DENIES ALL THREE SANDWICHES AT THIS TIME. GAVE PATIENT CCHO PUDDING AND SUGAR FREE JELLO AT THIS TIME. WILL CONTINUE TO MONITOR.
--- NOTE | 2018-11-24 19:32 | NUR ---
RECEIVED AWAKE IN BED. ALERT AND RESPONSIVE TO STIMULI. SKIN WARMM AND DRY TO TOUCH. NO SKIN BREAKDOWN NOTED. RESPIRATION EVEN AND UNLABORED , O2 AT 2L/NC , BILATERAL LUNGS CLEAR TO AUSCULTATION. ON TELE #[address],BBB. DENIES ANY CHEST PAIN/DISCOMFORT. PLACED CALL LIGHT WITHIN REACH, INSTRUCTED TO CALL FOR ANY ASSISTANCE NEEDED AND VERBALIZED UNDERSTANDING.
--- NOTE | 2018-11-24 21:35 | NUR ---
BLOOD NDIAR=[id number]/DL, NO REGULAR INSULIN COVERAGE.C/O SEVERE LEFT SHOULDER PAIN ON SCALE 8/10, MORPHINE 2MG IVP PRN MEDICATION. REPOSIIONED FOR COMFORT. HS SNACK PROVIDED, TOLERATED WELL.
--- NOTE | 2018-11-25 00:01 | NUR ---
EYES CLOSED, ASLEEP SOUNDLY. NO S/S OF APIN/DISCOMFORT. CALL LIGHT WITHIN REACH.BED IN LOWEST POSITION.
[2018-11-25 05:14] VITALS: BP 132/82
--- NOTE | 2018-11-25 05:41 | NUR ---
BLOOFD SGXTO=755KR/DL, NO INSULIN COVERAGE. ALL DUE MEDICATIONS GIVEN AND WELL TOLERATED. KEPT CLEAN AND DRY. ALL NEEDS ATTENDED.
[2018-11-25 06:25] LABS: CALCIUM 9.1 mg/dL (8.5-10.1); CREATININE SERUM 1.1 mg/dL (0.6-1.0); POTASSIUM SERUM 3.4 mmol/L (3.5-5.1)
[2018-11-25 06:51] LABS: BASOPHIL % 0.5 % (0-2); PLATELET COUNT 260 x10^3mcL (130-400)
[2018-11-25 06:54] LABS: RED CELL DISTRIBUTION WIDTH 22.1 % (11.5-14.5)
[2018-11-25 06:55] LABS: rbc morphology (normal/abnorm) ABNORMAL (NORMAL)
--- NOTE | 2018-11-25 07:24 | NUR ---
ASSUMED CARE OF PATIENT. SEEN RESTING IN BED THIS MORNING. NO APPARENT DISTRESS OR DISCOMFORT NOTED. IV ON LH AND RH SALINE LOCKED. NO REDNESS/SWELLING NOTED. WILL CONTINUE TO MONITOR.
--- NOTE | 2018-11-25 09:34 | NUR ---
PATIENT SEEN RESTING IN BED WITH NO ACUTE COMPLAINTS. NO DISTRESS OR DISCOMFORT NOTED.
[2018-11-25 09:37] VITALS: BP 105/62
--- NOTE | 2018-11-25 10:21 | NUR ---
PAGED FOR POTASSIUM 3.4. NO NEW ORDERS AT THIS TIME.
--- NOTE | 2018-11-25 11:16 | NUR ---
PATIENT SEEN RESTING IN BED. EASILY AROUSABLE. REQUESTING TUNA SANDWICH. IVS ON LEFT AND RIGHT HAND FLUSHED WITH SALINE, BOTH INTACT AND PATENT. REMAINS SALINE LOCKED. CONTINUES TO HAVE NO COMPLAINTS AT THIS TIME.
--- NOTE | 2018-11-25 11:48 | NUR ---
2 UNITS REGULAR INSULIN PROVIDED FOR BS 178.
[2018-11-25 12:31] VITALS: BP 108/70
[2018-11-25 13:26] VITALS: BP 108/70
--- NOTE | 2018-11-25 14:18 | NUR ---
PATIENT DISCHARGE INSTRUCTION AND EDUCATION PROVIDED. IV ON RH AND LH REMOVED WITH CATHTER INTACT. AWAITING RIDE FOR DISCHARGE.
--- NOTE | 2018-11-25 14:35 | NUR ---
PATIENT DISCHARGED VIA WHEELCHAIR. ALL BELONGINGS WITH PATIENT. NO APPARENT DISTRESS OR DISCOMFORT NOTED. NO COMPLAINTS OF PAIN. IV REMOVED. ID BAND REMOVED.
== END 2018-11-25 14:30 | disposition home or self-care (01) | DRG 194 ==
LOC: ED 23:40 → DU 11-24 01:34 → EDBD 11-25 14:30 → DU 11-25 14:30
PROVIDERS: Emergency Medicine; ADMIT Internal Medicine
DX: I11.0 Hypertensive heart disease with heart failure (principal); I21.4 Non-ST elevation (NSTEMI) myocardial infarction; I42.9 Cardiomyopathy, unspecified; I50.43 Acute on chronic combined systolic (congestive) and diastolic (congestive) heart failure; J44.9 Chronic obstructive pulmonary disease, unspecified; I25.10 Atherosclerotic heart disease of native coronary artery without angina pectoris; E11.9 Type 2 diabetes mellitus without complications; E78.5 Hyperlipidemia, unspecified; I25.2 Old myocardial infarction; Z68.39 Body mass index [BMI] 39.0-39.9, adult; Z79.4 Long term (current) use of insulin; Z79.82 Long term (current) use of aspirin
CPT/HCPCS: 82962; 83880; 84439; G0378; J0360; J1644; J1815; J2270; J2550; J3490; J7620; Q0092

== ENCOUNTER 2018-12-07 22:12 | Inpatient (IN) | payer OTHER ==
[~2018-12-07] VITALS: Ht 172.7 cm; Wt 104.1 kg
[2018-12-07 22:18] VITALS: Ht 172.7 cm; Wt 104.1 kg
--- NOTE | 2018-12-07 22:50 | NUR ---
PATIENT SEEN MOANING, WITH COMPLAINT OF BODY PAIN ON AND OFF ALL DAY. SEEN BY . MANAGER MEDICAL AFFAIRS AT THE BEDSIDE TO DRAW BLOOD.
--- NOTE | 2018-12-07 23:00 | NUR ---
PATIENT WAS DRAMATIC, MOANING,GRUNTING,AYNG HELP ME. SHE WAS GIVE A BABY ASPARIN AND A NITRO S/L.
[2018-12-07 23:08] LABS: PLATELET COUNT 195 x10^3mcL (130-400)
[2018-12-07 23:13] LABS: CARBON DIOXIDE 28.1 mmol/L (21-32); CREATININE SERUM 1.3 mg/dL (0.6-1.0); POTASSIUM SERUM 3.6 mmol/L (3.5-5.1)
[2018-12-07 23:18] LABS: BILIRUBIN TOTAL 0.39 mg/dL (0.20-1.00); TOTAL PROTEIN, SERUM 7.7 g/dL (6.4-8.2)
--- NOTE | 2018-12-07 23:32 | NUR ---
PATIENT SEEN SLEEPING AT THIS TIME.
[2018-12-07 23:38] LABS: MONOCYTE 4 % (0-7); SEGMENTED NEUTROPHILS 52 % (37-75)
[2018-12-07 23:39] LABS: PLATELET MORPHOLOGY PLATELETS NORMAL; acanthocyte (spur cell) 1+; rbc morphology (normal/abnorm) ABNORMAL (NORMAL); schistocyte (helmet cell) 1+; tear drop cell (dacryocyte) 1+
[2018-12-08] VITALS (7 sets, daily range): BP systolic 115–148; BP diastolic 78–105
--- NOTE | 2018-12-08 00:29 | NUR ---
rESIDENT IS AT THE BEDSIDE TALKING TO THE PATIENT.
[2018-12-08 00:58] LABS: UA SPECIFIC GRAVITY 1.025 (1.005-1.035); microscopic required? YES; urine erythrocyte TRACE (NEGATIVE)
[2018-12-08 01:05] LABS: CHOLESTEROL/HDL RATIO 2.9; MAGNESIUM 1.5 mg/dL (1.8-2.4); PHOSPHOROUS 5.6 mg/dL (2.5-4.9); T3 TOTAL 0.73 ng/mL
[2018-12-08 01:15] LABS: FREE T4 0.89 ng/dL (0.76-1.46); FREE THYROXINE INDEX 1.8 ug/dL (1.4-4.5); T4(THYROXINE) 5.6 ug/dL (4.7-13.3)
--- NOTE | 2018-12-08 01:15 | NUR ---
PT TRANSFERRED TO 208[facility] BY LARRY BY MYSELF AND ESTELA EMT. PT ON [employer]OL BUS AIDE FOR TRANSFER. PT AOX4, RESP EVEN AND UNLABORED, NO ACUTE DISTRESS NOTED. PT AMBULATED FROM [facility] TO BED WITH ASSISTANCE. PT ACCEPTED BY ALEX GRAHAM TO ASSUME PT CARE.
--- NOTE | 2018-12-08 01:17 | NUR ---
RECEIVED PT FROM ER VIA [facility] ACCOMPANIED WITH NURSE AND EMT, PT SEEN, ALERT AND ORIENTED X 4, VERY VERBALLY RESPONSIVE, DENIES DIZZINESS BUT C/O OF HEADACHE, CLEAR SPEECH, NO FACIAL DROOP NOTED, BREATHING EVEN AND UNLABORED, LUNG SOUNDS CLEAR, ON ROOM AIR WITH SPO2:97%, NO RESP DISTRESS NOTED, ON TELE#6 ST WITH BBB, C/O OF CHEST PAIN 10/10 RADIATING TO BACK, PULSES PALPABLE, TRACE EDEMA NOTED TO BLE, GENERALIZED WEAKNESS, AMBULATORY WITH ASSIST, ABD ROUND AND SOFT WITH ACTIVE BS, NO BM AT THIS TIME, DENIES ABD PAIN, DENIES ANY PROBLEM WITH VOIDING, NO OPEN PRESSURE INJURY NOTED, PRIMARY NURSE MAG AT BEDSIDE WITH CONT NURSING CARE
--- NOTE | 2018-12-08 01:20 | NUR ---
PT RECEIVED FROM RESOURCE NURSE. PT A/O X4, ABLE TO MAKE NEEDS KNOWN. TELE #6, PT ADMITTED FOR CP. PULSES PALPABLE, NO EDEMA PRESENT. BREATHING IS EVEN AND UNLABORED ON RA, NO RESP DISTRESS NOTED. ABD SOFT AND NONDISTENDED, DENIES N/V. VOIDS FREELY, BRP WITH ASSIST. GENERALIZED WEAKNESS. SKIN IS WARM AND DRY, INTACT. PT C/O 10/10 BACK PAIN, LENKA SHOULDER PAIN, AND HEADACHE, WILL MEDICATE WITH PRN PAIN MED. IV TO RW, 20G, PATENT AND INTACT, SITE WNL. ORIENTED PT TO ROOM AND CALL LIGHT. NO ACUTE DISTRESS NOTED. BED IN LOWEST SETTING, SIDE RAILS UP X2, CALL LIGHT WITHIN REACH. WILL CONT TO MONITOR.
--- NOTE | 2018-12-08 02:35 | NUR ---
PT CONT TO C/O 10/10 BACK PAIN, LENKA SHOULDER PAIN, AND HEADACHE. PT REFUSED PRN TYLENOL, PT STATES, "THAT STUFF ISN'T GONNA WORK." DR VIVIANA BETTENCOURT, AWAITING CALL BACK. PT IN NO ACUTE DISTRESS. CALL LIGHT WITHIN REACH. WILL CONT TO MONITOR.
--- NOTE | 2018-12-08 03:56 | NUR ---
PT'S TROP-0.187, DR MICHELLE MADE AWARE, NEW NEW ORDERS RECEIVED. PT HAS NO DIET ORDERS OR FOLLOW UP TROP ORDERS, MADE AWARE, AWAITING ORDERS AT THIS TIME.
--- NOTE | 2018-12-08 05:07 | NUR ---
PT SLEPT WELL THROUGHOUT THE EVENING. BREATHING IS EVEN AND UNLABORED, NO RESP DISTRESS NOTED. PT DENIES HAVING ANY PAIN AT THIS TIME. IV TO RH, PATENT AND INTACT, SITE WNL. NO ACUTE CHANGES ENCOUNTERED DURING SHIFT. ALL NEEDS MET AND ANTICIPATED. PT WAS COMPLIANT WITH NURSING CARE. BED ALARM ON, CALL LIGHT WITHIN REACH. WILL ENDORSE CARE TO AM NURSE.
[2018-12-08 06:23] LABS: PLATELET COUNT 195 x10^3mcL (130-400)
[2018-12-08 06:59] LABS: RED CELL DISTRIBUTION WIDTH 22.4 % (11.5-14.5)
[2018-12-08 07:05] LABS: CALCIUM 9.5 mg/dL (8.5-10.1); CREATININE SERUM 1.2 mg/dL (0.6-1.0); POTASSIUM SERUM 4.1 mmol/L (3.5-5.1)
--- NOTE | 2018-12-08 07:30 | NUR ---
PT IN NO ACUTE DISTRESS. CONTINUITY OF CARE ENDORSED TO DEVIN GRAHAM. ALL QUESTIONS AND CONCERNS ADDRESSED.
--- NOTE | 2018-12-08 07:50 | NUR ---
CANCELLATION REQUESTED FOR ECHOCARDIOGRAM
--- NOTE | 2018-12-08 08:00 | NUR ---
RECEIVED SRAAVNI ALERT AND ORIENTED TIMES FOUR. SHE DENIES PAIN AT THIS TIME. PATIENT HAS NOTED LABS OF BUN AT 23.0, AND THE CREATININE AT 1.2. HAS HAD GLUCOSE THIS AM AT 243 AND RECEIVE SIX UNITS OF REGULAR. VITALS AT THIS TIME AT 96.4, 88, 19, 145/98, 97% ON 2 LITERS OF NASAL CANNULA 02. PATIENT WITH SOME FINE RALES TO HE RIGHT LUNG AND HAS BEEN SLEEPING ON AND OFF AND HAS BEEN OOB WITH WALKER AND SOME MINIMAL ASSIST TO THE RESTROOM. PATIENT HAS BACTERIA IN THE URINE AND WAS GIVEN NORCO AT 342 THIS AM FOR PAIN TO THE BACK AND NECK AND NO COMPLAINTS OF CHEST PAIN AT THIS TIME. NOTED THE TROPONIN IS LOWER THIS TIME AT 0.185 AND WAS AT 0.187 ON THE FIRST LAB VALUE. PER THE POSTDOCTORAL FELLOW THE PHYSICIAN IS AWARE AND NO NEW ORDERS AT THIS TIME. NOTED THE PATIENT HAS EDEMA TO THE LOWER EXTREMTIES OF TRACE TO OME PLUS. PATIENT HAS NEGATIVE CHEST XRAY AND HAS BEEN SATTING WELL BUT WANTS THE 02. PATIENT WITH HISTORY OF CHF, ASTHMA AND DIABETES AND HTN. SHE HAS A BNP OF 1156.81 ON ADMISSION. SHE HS SINUS TACH WITH BBB. WILL CONTINUE TO MONITOR INICATED.
--- NOTE | 2018-12-08 10:00 | NUR ---
PATIENT REQUESTED DIET CHANGE FROM THE PHYSICIAN AND PATIENT IS STILL WITH THE BRAT DIET AT THIS TIME. IT IS APPROPRIATE FOR THE PATEITN AND REMINDED HIM THAT THE DIET IS FOR DIARRHEA AND NAUSEA. PATIENT IS ANXIOUS TO GET REFGULAR FOOD AND TO GO HOME.
[2018-12-08 11:38] LABS: ATYPICAL LYMPH 2 %; BAND NEUTROPHIL 0 % (0-10); SEGMENTED NEUTROPHILS 58 % (37-75)
[2018-12-08 11:39] LABS: BASOPHIL 0 % (0-2); MONOCYTE 8 % (0-7); rbc morphology (normal/abnorm) ABNORMAL (NORMAL)
[2018-12-08 11:40] LABS: PLATELET MORPHOLOGY PLATELETS DECREASED
--- NOTE | 2018-12-08 13:30 | NUR ---
SEEN BY DR GOLDSTEIN AND ORDERS PENDING.
--- NOTE | 2018-12-08 16:07 | NUR ---
TELE REMOVED. AND PATIENT HAS BEEN AWAKE AND TALKING WITH THE FAMILY AT BEDSIDE. PATIENT WITHOUT COMPLAINTS OF PAIN AT THIS TIME. SHE HAS RESTED ON AND OFF THROUGHOUT THE SHIFT. WILL CONTINUE TO MONITOR.
--- NOTE | 2018-12-08 16:29 | NUR ---
TOLERATED ICE CHIPS AND DIET. SHE HAS BEEN RESISTRICTING THE FLUID INTAKE DIRRECTED. PATIENT HAS NO ACUTE CHEST PAIN AND THE TROPONINS SEEM TO BE TRENDING SLOWLY DOWNWARD AT THIS TIME.
--- NOTE | 2018-12-08 19:05 | NUR ---
PT RECEIVED RESTING IN BED WITH EYES CLOSED, BUT IS EASILY AROUSABLE. PT A/O X4, ABLE TO MAKE NEEDS KNOWN. MED-SURG, PT ADMITTED FOR CP, BUT DENIES ANY CP/PRESSURE AT THIS TIME. PULSES PALPABLE, NO EDEMA PRESENT. BREATHING IS EVEN AND UNLABORED ON RA, NO RESP DISTRESS NOTED. ABD SOFT AND NONDISTENDED, DENIES N/V. VOIDS FREELY, BRP WITH ASSIST. GENERALIZED WEAKNESS. SKIN IS WARM AND DRY, INTACT. PT DENIES HAVING ANY PAIN AT THIS TIME. IV TO RW, PATENT AND INTACT, SITE WNL. NO ACUTE DISTRESS NOTED. BED IN LOWEST SETTING, SIDE RAILS UP X2, CALL LIGHT WITHIN REACH. WILL CONT TO MONITOR.
--- NOTE | 2018-12-08 20:51 | NUR ---
PT'S BLOOD CX POSITIVE FOR GRAM (+) [employer]ERS, DR ORTEGA CALLED AND MADE AWARE. NO NEW ORDERS AT THIS TIME.
[2018-12-09 05:25] VITALS: BP 139/92
[2018-12-09 06:24] LABS: PLATELET COUNT 200 x10^3mcL (130-400)
[2018-12-09 06:50] LABS: CALCIUM 9.1 mg/dL (8.5-10.1); CARBON DIOXIDE 32.5 mmol/L (21-32); CREATININE SERUM 1.1 mg/dL (0.6-1.0); MAGNESIUM 1.7 mg/dL (1.8-2.4); PHOSPHOROUS 5.7 mg/dL (2.5-4.9); POTASSIUM SERUM 3.3 mmol/L (3.5-5.1)
--- NOTE | 2018-12-09 06:58 | NUR ---
PT SLEPT WELL THROUGHOUT THE EVENING. BREATHING IS EVEN AND UNLABORED, NO RESP DISTRESS NOTED. PT DENIES HAVING ANY PAIN AT THIS TIME. IV TO RH, PATENT AND INTACT, SITE WNL. NO ACUTE CHANGES ENCOUNTERED DURING SHIFT. ALL NEEDS MET AND ANTICIPATED. PT WAS COMPLIANT WITH NURSING CARE. CALL LIGHT WITHIN REACH. WILL CONTINUITY OF CARE ENDORSED TO AM NURSE. ALL QUESTIONS AND CONCERNS ADDRESSED.
--- NOTE | 2018-12-09 07:28 | NUR ---
RECEIVED REPORT FROM [employer] AND PATIENT HAD BEEN DOING WELL OVERNIGHT. NOTED THE CULTURE CAME BACK POSITIVE AND WILL EXPECT CHANGES O THE MAR TO COVER THIS AND DOCTOR IS AWARE. PATIENT SUGARS WERE GOOD OVERNIGHT AT 130 AND 114. THE LAST TROPONIN AT 0.161 AND NO NEW ORDERS ON THIS AND OFF TELE ORDDERED FROM YESTERDAY. NO MEDICATIONS FOR PAIN SO FAR AND SHE HAS BEEN TOELRATING THE DIET ORDERED ALONG WITH THE FLUID RESTRICTION.
[2018-12-09 08:15] LABS: RED CELL DISTRIBUTION WIDTH 22.7 % (11.5-14.5)
[2018-12-09 09:37] VITALS: BP 145/94
--- NOTE | 2018-12-09 09:44 | NUR ---
SEEN THE RESIDENT AND INTERNS AND PLAN OF CARE DISCUSSED BUT THE PATIENT NOW WANT TO GO HOME. WILL ADVISE THE RESIDENT OF THIS.
[2018-12-09 09:59] LABS: BAND NEUTROPHIL 0 % (0-10); BASOPHIL 0 % (0-2); MONOCYTE 6 % (0-7); SEGMENTED NEUTROPHILS 54 % (37-75)
[2018-12-09 10:00] LABS: ovalocyte/elliptocyte 1+; rbc morphology (normal/abnorm) ABNORMAL (NORMAL); target cell (codocyte) 1+
[2018-12-09 10:01] LABS: acanthocyte (spur cell) 1+; schistocyte (helmet cell) 1+
[2018-12-09 10:03] LABS: PLATELET MORPHOLOGY GIANT PLATELET SEEN
--- NOTE | 2018-12-09 10:13 | NUR ---
PAGED THE RESIDENT DUE TO PATIENT DOES NOT WISH TO STAY. PATIENT IS ANXIOUS TO GO HOME. ALOT OF ORDERS TRICKLING IN DUE TO PATIEN THAS LOW POTASSIUM, MRSA OF THE NAREA HISTORY AND HAS A POSITIVE BLOOD CULTURE.
--- NOTE | 2018-12-09 11:10 | NUR ---
SPOKE TO THE PATIENT AT LENGTH AND SHE WAS WANTING TO LEAVE. SHE WAS ADVISED SHE WOULD NEED TO GO AMA THE RESIDENT DOES NOT WISH HER TO GO IN HER CONDITION IT STANDS NOW. THE PATIENT HAS POSITIVE BLOOD CULTURES AND HISTORY OF CARDIAC ISSUES AND SHE HAS LOW POTASSIUM AND AN ORDER FOR MAGNESIUM ALSO NOTED. PATIENT HAS NOW AGREED TO STAY SHE HAS BEEN FULLY INFORMED OF RISKS. SHE HAS YOUND CHILDREN SHE IS CARING FOR AT HOME BUT DOES NOT WANT TO RISK THIER HEALTH AND SHE WANTS TO GET WELL. ADVISED THE PATIENT OF [facility] PLAN OF CARE AND THE ANTIBIOTIC ORDERED. BLOOD SUGAR AT THIS TIME AT 189 AND WILL GIVE COVERAGE INDICATED. TO GIVE NOW THE POTASSIUM AND THE MAGNESIUM RIDER ORDERED. =
--- NOTE | 2018-12-09 11:45 | NUR ---
WENDIE VARIFIED AND AWAITING PAHRMACY TO BRING TO GIVE INDICATED.
[2018-12-09 17:10] VITALS: BP 121/74
--- NOTE | 2018-12-09 17:55 | NUR ---
BLOOD SUGAR AT THIS TIME AT 257 AND GAVE 9 UNITS OF REGULAR. TAMIE HAS BEEN GIVEN HER SECOND DOSING OF COREG ORDERED. PATIENT HAS NO ADVERSE REACTION TO THE VANCO OR MAGNESIUM NOTED. PATIENT HAD SOME TENDERNESS TO THE IV BUT WAS INFUSION SPEED RELATED AND WITH THE SLOWING DOWN OF THE INFUSION THE PATIENT TOLERATED WELL. NO BURNING, REDNESS, OR SWELLING TO THE SIGHT.
--- NOTE | 2018-12-09 19:25 | NUR ---
RECIVED PT RESTING IN BED WITH NO ACUTE DISTRESS NOTED AT THIS TIME, ASSESSMENT PERFORMED, PT IS A/OX4 NO COMPLAINTS OF AMARO OR DIZZINESS, PT DENIES CHEST PAIN OR SOB AT THIS TIME, ALL NEEDS ATTENDED TO AT THIS TIME, SAFETY PRECAUTIONS IN PLACE, WILL CONTINUE TO MONITOR
[2018-12-09 20:26] VITALS: BP 100/61
--- NOTE | 2018-12-09 22:30 | NUR ---
PT COMPLAINING OF SOME SOB, PUT NC ON AT 2L, SOB RESOLVED. WILL CONTINUE TO MONITOR
--- NOTE | 2018-12-10 00:35 | NUR ---
PT RESTING IN BED WATCHING TV WITH NO ACUTE DISTRESS NOTED, PT DENIES PAIN OR SOB AT THIS TIME, SAFETY PRECAUTIONS IN PLACE, WILL CONTINUE TO MONITOR
--- NOTE | 2018-12-10 03:00 | NUR ---
PT SLEEPING WITH TV ON, NO ACUTE DISTRESS NOTED AT THIS TIME, RESPIRATIONS EVEN AND UNLABORED, SAFETY PRECAUTIONS IN PLACE, WILL CONTINUE TO MONITOR.
[2018-12-10 05:02] VITALS: BP 120/70
[2018-12-10 06:16] VITALS: BP 121/70
--- NOTE | 2018-12-10 06:16 | NUR ---
PT RESTED THROUGH THE NIGHT, PT HAD ONE EPISODE OF SOB THAT WAS ALIEVIATED WITH SUPPLEMENTAL O2, PT HAD TWO EPISODES OF HER CHRONIC BACK PAIN THAT WAS TREATED WITH MORPHINE PRN PER ORDER, PT DENIES SOB AT THIS TIME, PAIN IS AT A TOLERABLE LEVEL, WILL CONTINUE TO MONITOR AND ENDORSE CARE TO ONCOMING SHIFT
--- NOTE | 2018-12-10 07:05 | NUR ---
RECEIVED BEDSIDE REPORT FROM GUNITE MIXER NURSE AT THIS TIME. PATIENT RESTING COMFORTABLY IN BED. NO APPARENT DISTRESS OR DISCOMFORT NOTED. 2L NC IN PLACE FOR COMFORT. NO RESPIRATORY DISTRESS NOTED. PATIENT DENIES SHORTNESS OF BREATH. PATIENT DENIES CHEST PAIN/PRESSURE AT THIS TIME. IV PATENT AND INTACT. ALL QUESTIONS AND CONCERNS ADDRESSED. ALL NEEDS ATTENDED TO. WILL CONTINUE TO MONITOR
[2018-12-10 07:11] LABS: CALCIUM 8.6 mg/dL (8.5-10.1); CARBON DIOXIDE 35.2 mmol/L (21-32); CHLORIDE SERUM 102 mmol/L (98-107); GFR1 > 60 mL/min; GLUCOSE SERUM 114 mg/dL (74-106); MAGNESIUM 1.6 mg/dL (1.8-2.4); POTASSIUM SERUM 3.9 mmol/L (3.5-5.1); SODIUM SERUM 143 mmol/L (136-145)
[2018-12-10 09:30] VITALS: BP 109/65
--- NOTE | 2018-12-10 10:30 | NUR ---
ALL MORNING MEDICATIONS ADMINISTERED AT THIS TIME. PATIENT TOLERATED WELL. NO ADVERSE EFFECTS NOTED. ALL NEEDS ATTENDED TO. WILL CONTINUE TO MONITOR.
[2018-12-10] MEDS ORDERED: LIPI10 PO (11:20)
[2018-12-10] MEDS ORDERED: CARVEDILOL12.5 M1 PO (11:21)
[2018-12-10] MEDS ORDERED: BACO TOP (11:23)
--- NOTE | 2018-12-10 12:00 | NUR ---
PATIENT BLOOD SUGAR 176. 3 UNITS OF INSULIN REQUIRED (SEE EMAR). ALL NEEDS ATTENDED TO. WILL CONTINUE TO MONITOR
[2018-12-10 12:34] VITALS: BP 109/65
--- NOTE | 2018-12-10 13:41 | NUR ---
PATIENT STABLE TO BE DISCHARGED TO HOME. DISCHARGE INSTRUCTIONS GIVEN WELL EDUCATION. INSTRUCTED PATIENT TO FOLLOW UP WITH PCP AND HEMODIALYSIS TECHNICIAN. PATIENT VERBALIZES UNDERSTANDING. IV REMOVED WITH CATH INTACT. ID BANDS REMOVED. ALL PERSONAL BELONGINGS WITH PATIENT. ALL QUESTIONS AND CONCERNS ADDRESSED. ALL NEEDS ATTENDED TO. ESCORTED DOWN TO THE LOBBY BY RN AT THIS TIME
== END 2018-12-10 13:49 | disposition home or self-care (01) | DRG 194 ==
LOC: ED 22:12 → DU 23:48 → MU 12-08 13:53 → EDBD 12-10 13:49
PROVIDERS: Emergency Medicine; ADMIT Internal Medicine
DX: I11.0 Hypertensive heart disease with heart failure (principal); N17.0 Acute kidney failure with tubular necrosis; I21.A1 Myocardial infarction type 2; I24.9 Acute ischemic heart disease, unspecified; E11.65 Type 2 diabetes mellitus with hyperglycemia; E44.0 Moderate protein-calorie malnutrition; E83.42 Hypomagnesemia; E83.39 Other disorders of phosphorus metabolism; I42.8 Other cardiomyopathies; I50.23 Acute on chronic systolic (congestive) heart failure; J44.9 Chronic obstructive pulmonary disease, unspecified; D50.9 Iron deficiency anemia, unspecified; E78.5 Hyperlipidemia, unspecified; I25.2 Old myocardial infarction; Z79.4 Long term (current) use of insulin; Z68.36 Body mass index [BMI] 36.0-36.9, adult; Z91.11 Patient's noncompliance with dietary regimen; Z91.14 Patient's other noncompliance with medication regimen
CPT/HCPCS: 82962; 83880; 84439; G0378; J1940; J2270; J3370; J3475; J3490; J7050; Q0092

== ENCOUNTER 2018-12-19 04:11 | Inpatient (IN) | payer OTHER ==
[~2018-12-19] VITALS: Ht 172.7 cm; Wt 113.6 kg
[~2018-12-19 04:11] MED LIST changes: +BACO TOP; +LIPI10 PO
--- NOTE | 2018-12-19 04:24 | NUR ---
PATIENT PRESENTS TO THE ED WITH C/O SOB AND CHEST PAIN THAT STARTED LAST NIGHT. PT HAS A HX OF CARDIAC ISSUES INCLUDING A PAST WI. PT AAOX4, SPEECH CLEAR. BREATHING EVEN AND SHALLOW. SKIN WARM, DRY AND INTACT. PT PLACED ON ALL MONITORS FOR FURTHER OBSERVATION.
[2018-12-19 05:09] LABS: PLATELET COUNT 159 x10^3mcL (130-400)
[2018-12-19 05:10] LABS: BASOPHIL % 7.7 % (0-2); RED CELL DISTRIBUTION WIDTH 21.8 % (11.5-14.5)
--- NOTE | 2018-12-19 05:11 | NUR ---
MEDICATED PER MD ORDERS.
[2018-12-19 05:12] LABS: CALCIUM 9.2 mg/dL (8.5-10.1); CARBON DIOXIDE 27.8 mmol/L (21-32); CHLORIDE SERUM 105 mmol/L (98-107); GFR1 > 60 mL/min; GLUCOSE SERUM 198 mg/dL (74-106); POTASSIUM SERUM 3.8 mmol/L (3.5-5.1); SODIUM SERUM 142 mmol/L (136-145)
--- NOTE | 2018-12-19 05:17 | NUR ---
GAVE 2ND DOSE OF NITRO-- WILL CONTINUE TO MONITOR.
[2018-12-19 05:19] LABS: ALKALINE PHOSPHATASE 114 U/L (46-116); ALT/SGPT 24 U/L (14-59); AST/SGOT 34 U/L (15-37); BILIRUBIN TOTAL 0.37 mg/dL (0.20-1.00); LIPASE 44 IU/L (73-393); TOTAL PROTEIN, SERUM 7.8 g/dL (6.4-8.2)
[2018-12-19 05:20] LABS: ALBUMIN 3.1 g/dL (3.4-5.0)
[2018-12-19 06:51] VITALS: BP 162/117
--- NOTE | 2018-12-19 07:09 | NUR ---
PROVIDED REPORT TO GLADYS MACHUCA FOR CONTINUED CARE OF PATIENT.
--- NOTE | 2018-12-19 07:31 | NUR ---
PLACED PT ON 2 L O2 VIA N/C-
--- NOTE | 2018-12-19 07:33 | NUR ---
PROVIDED PATIENT 3RD DOSE OF NITRO--PER MD ORDERS
[2018-12-19 07:37] LABS: T3 TOTAL 0.94 ng/mL
[2018-12-19 07:40] LABS: CHOLESTEROL/HDL RATIO 1.9
[2018-12-19 07:49] LABS: AMPHETAMINE QUAL UR NONE DETECTED (See below)
[2018-12-19 07:55] LABS: microscopic required? YES; urine erythrocyte TRACE (NEGATIVE)
--- NOTE | 2018-12-19 07:56 | NUR ---
REPORT GIVEN TO GLADYS GONZALEZ FOR CONTINUED CARE OF PATIENT.
[2018-12-19 08:09] LABS: FREE T4 0.9 ng/dL (0.76-1.46); FREE THYROXINE INDEX 2.2 ug/dL (1.4-4.5); T4(THYROXINE) 6.6 ug/dL (4.7-13.3)
--- NOTE | 2018-12-19 08:15 | NUR ---
ADMITTED PT FROM ED. PT IS A/A/OX4 DENIES AMARO. RESP EVEN AND UNLABORED WITH CLEAR BS BILAT. ON O2 AT 2L/MIN VIA NC WITH RT PROTOCOL. PT C/O CP AND SOB AT HOME AND IN ED. CURRENTLY 2/10 CP REPORTED RECEIVED MORPHINE RECENTLY. DENIES ANY RADIATION OF PAIN. REPORTS HX HF WITH EF 15-20%. NO EDEMA NOTED WITH IV SL TO LAC. ABD SOFT, OBESE NONTENDER WITH ACTIVE BS X4. VOIDING FREELY AND REGULAR BM. AMBULATORY WITH ASSISTANCE USES WALKER AT HOME. REPORTS POOR ACTIVITY TOLERANCE. ORIENTED TO ROOM AND CALL LIGHT SYSTEM. CALL LIGHT IN REACH NEEDS ATTENDED TO.
[2018-12-19 10:03] VITALS: BP 171/101
--- NOTE | 2018-12-19 10:40 | NUR ---
DR. MENDEZ AND MEDICAL TEAM IN TO EVAL PT AND UPDATE PT ON POC.
[2018-12-19 12:47] VITALS: BP 152/106
--- NOTE | 2018-12-19 13:42 | NUR ---
PAGE THE DR. KANG REGARDING THE DIET ORDER TODAY. WAITING FOR CALL BACK.
--- NOTE | 2018-12-19 17:30 | NUR ---
PT C/O BACK PAIN DR. LOVE PAGED VIA [facility] FOR PAIN MEDS.
[2018-12-19 17:47] VITALS: BP 150/98
--- NOTE | 2018-12-19 18:00 | NUR ---
NO RESPONSE BY PAGED ONCE MORE AWAITING CALL BACK.
--- NOTE | 2018-12-19 18:34 | NUR ---
PT RESTING AT THIS TIME. NO FURTHER EPISODES OF CP REPORTED. TOLERATED MEALS. STARTED ON BUMEX AND CARVEIDOLOL BY DR. GOLDSTEIN. USING BSC. REPORTS GOOD URINATION. CALL LIGHT IN REACH NEEDS ATTENDED TO.
--- NOTE | 2018-12-19 20:00 | NUR ---
RECEIVED PT IN BED, RESTING QUIETLY IN BED, DENIES HEADACHE/DIZZINESS .RESP. EVEN AND UNLABORED. LUNG SOUNDS CLEAR BILAT. ON 02 AT 2L/MIN VIA NC,DENIES SOB,NO ACUTE DISTRESS NOTED. SR WITH BBB ON THE MONITOR, DENIES CHEST PAIN OR PRESSURE. HL TO LAC, INTACT AND PATENT. WITH GEN. WEAKNESS, BSC PLACED WITHIN REACH, INSTRUCTED TO CALL FOR ASSIST, IF NEEDED, PT VERBALIZED UNDERSTANDING. CALL LIGHT WITHIN REACH. WILL CONTINUE TO MONITOR.
[2018-12-19 21:24] VITALS: BP 138/78
--- NOTE | 2018-12-19 21:53 | NUR ---
COMPLAINED OF BACK PAIN, 10/30, MEDICATED WITH NORCO PO ORDERED. WILL CONTINUE TO MONITOR.
--- NOTE | 2018-12-19 22:58 | NUR ---
RESTING IN BED,EYES CLOSED. APPEARS COMFORTABLE. NO COMPLAINTS NOTED. WILL CONTINUE TO MONITOR.
--- NOTE | 2018-12-20 01:46 | NUR ---
PT AWARE OF TIME TO BE DC,D AND [facility] RESTING QUIETLY IN BED, WITH EYES CLOSED, APPEARS ASLEEP, EASILY AROUSABLE. RESP. EVEN AND UNLABORED. NO ACUTE DISTRESS NOTED. CALL LIGHT WITHIN REACH. WILL CONTINUE TO MONITOR.
--- NOTE | 2018-12-20 01:58 | NUR ---
NO COMPLAINTS NOTED AT THIS TIME.RESTING QUIETLY IN BED, WITH EYES CLOSED. APPEARS ASLEEP, EASILY AROUSABLE. 02 AT 1/L VIA NC, BARTOLO. WELL. RESP. EVEN AND UNLABORED. NO ACUTE DISTRESS NOTED. WILL CONTINUE TO MONITOR.
--- NOTE | 2018-12-20 02:53 | NUR ---
PT AWAKE , COMPLAINING OF ABD. PAIN, 10/30, REQUESTING MORPHINE SULFATE, RFUSING NORCO . DR ORTEGA NOTIFIED. ORDER RECEIVED TO GIVE MORPHINE SULFATE, MEDICATED PER EMAR. WILL CONTINUE TO MONITOR.
[2018-12-20 05:58] VITALS: BP 134/89
--- NOTE | 2018-12-20 06:14 | NUR ---
NO COMPLAINTS NOTED AT THIS TIME. DENIES ANY PAIN OR ANY DISCOMFORT AT THIS TIME. RESP. EVEN AND UNLABORED. ON 02 AT 1L/MIN VIA NC, SAT. WELL. DENIES SOB , NO ACUTE DISTRESS NOTED.AFEBRILE AND VITAL SIGNS STABLE.DUE MEDS GIVEN ORDERED, BARTOLO. WELL. KEPT COMFORTABLE. VOIDING FREELY VIA BSC, NO BM DURING THE NIGHT. WILL CONTINUE TO MONITOR.
[2018-12-20 06:46] LABS: CALCIUM 8.4 mg/dL (8.5-10.1); CHLORIDE SERUM 103 mmol/L (98-107); GFR1 > 60 mL/min; GLUCOSE SERUM 147 mg/dL (74-106); MAGNESIUM 1.3 mg/dL (1.8-2.4); PHOSPHOROUS 5.5 mg/dL (2.5-4.9); POTASSIUM SERUM 3.5 mmol/L (3.5-5.1); SODIUM SERUM 143 mmol/L (136-145)
[2018-12-20 06:58] LABS: BASOPHIL % 0.1 % (0-2); PLATELET COUNT 221 x10^3mcL (130-400)
--- NOTE | 2018-12-20 07:15 | NUR ---
RECIEVED PT FROM NIGHT NURSE. PT IS LAYING DOWN IN BED WITH HOB UP RESTING WITH EYES CLOSED. RESPIRATIONS EVEN AND UNLABORED ON 1L NC. PT LOOKS TO BE IN NO ACUTE DISTRESS AT THIS TIME. IV SITE PATENT WITH NO SIGNS OF ERYTHEMA OR SWELLING AND IS H/L. TELE MONITOR PRESENT. BED IN LOWEST POSITION, CALL LIGHT WITHIN REACH. WILL CONITUE TO MONITOR.
[2018-12-20 07:31] LABS: RED CELL DISTRIBUTION WIDTH 21.7 % (11.5-14.5)
[2018-12-20 07:32] LABS: rbc morphology (normal/abnorm) ABNORMAL (NORMAL)
[2018-12-20 08:56] VITALS: Ht 172.7 cm; Wt 113.6 kg
[2018-12-20 09:22] VITALS: BP 140/91
[2018-12-20 12:57] VITALS: BP 125/80
--- NOTE | 2018-12-20 14:45 | NUR ---
PT TRANSFERED TO MED SURG. REMOVED TELE MONITOR AND RETURNED TO TELE STATION.
[2018-12-20 16:13] VITALS: BP 121/61
--- NOTE | 2018-12-20 18:20 | NUR ---
PT IS LAYING DOWN IN BED WITH HOB UP RESTING. PT LOOKS TO BE IN NO ACUTE DISTRESS AND DENIES ANY PAIN AT THIS TIME. RESPIRATIONS EVEN AND UNLABORED ON 1L NC. IV SITE PATENT WITH NO SIGNS OF ERYTHEMA OR SWELLING WITH IV H/L. BED IN LOWEST POSITION, CALL LIGHT WITHIN REACH. WILL ENDORSE TO ONCOMING SHIFT.
[2018-12-20 19:49] VITALS: BP 122/74
--- NOTE | 2018-12-20 20:15 | NUR ---
PT CURRENTLY RESTING IN BED, C/O CHEST PAIN 01/30, REFUSING MEDICATION AT THIS TIME. NO ACUTE DISTRESS. A/O X4. NO TELE, MED/SURG. PULSES PALPABLE IN ALL EXTREMITIES, BLE TRACE EDEMA NOTED. LUNG SOUNDS DIMINISHED IN BILATERAL BASES, DENIES SOB, RECEIVING O2 VIA NC AT 1L. BOWEL SOUNDS ACTIVE, LAST BM 12/20/18. VOIDING WELL. GENERALIZED WEAKNESS, AMBULATORY WITH ASSIST. IV PATENT AND INTACT. BED IN LOWEST POSITION, SIDE RAILS UP X2, CALL LIGHT WITHIN REACH. WILL CONTINUE TO MONITOR.
--- NOTE | 2018-12-21 00:54 | NUR ---
PT CURRENTLY RESTING IN BED, NO ACUTE DISTRESS. WILL CONTINUE TO MONITOR.
[2018-12-21 05:07] VITALS: BP 157/93
[2018-12-21 06:59] LABS: BASOPHIL % 0.6 % (0-2); PLATELET COUNT 214 x10^3mcL (130-400)
--- NOTE | 2018-12-21 07:15 | NUR ---
RECEIVED PT FROM NIGHT NURSE. PT IS LAYING DOWN IN BED WITH HOB UP RESTING WITH EYES CLOSED. PT LOOKS TO BE IN NO ACUTE DISTRESS AT THIS TIME. RESPIRATIONS EVEN AND UNLABORED ON 1L NC. IV SITE PATENT WITH NO SIGNS OF ERYTHEMA OR SWELLING WITH IV H/L. BED IN LOWEST POSITION, CALL LIGHT WITHIN REACH. WILL CONTINUE TO MONITOR.
[2018-12-21 07:21] LABS: CALCIUM 8.6 mg/dL (8.5-10.1); CHLORIDE SERUM 102 mmol/L (98-107); CREATININE SERUM 0.9 mg/dL (0.6-1.0); GFR1 > 60 mL/min; GLUCOSE SERUM 126 mg/dL (74-106); POTASSIUM SERUM 3.2 mmol/L (3.5-5.1); SODIUM SERUM 145 mmol/L (136-145)
[2018-12-21 07:27] LABS: CARBON DIOXIDE 39.3 mmol/L (21-32)
[2018-12-21 07:34] LABS: RED CELL DISTRIBUTION WIDTH 20.7 % (11.5-14.5)
--- NOTE | 2018-12-21 08:02 | NUR ---
PT TAKEN OFF O2. PT SATTING AT 97% ON ROOM AIR AND DENIES ANY SOB. ENCOURAGING PT TO AMBULATE AND TO INFORM NURSE IF FEELING SOB. PT VERBALIZED UNDERSTANDING. CALL LIGHT WITHIN REACH. WILL CONTINUE TO MONITOR.
[2018-12-21 08:36] VITALS: BP 135/61
[2018-12-21 12:58] LABS: rbc morphology (normal/abnorm) ABNORMAL (NORMAL)
[2018-12-21 12:59] LABS: ovalocyte/elliptocyte 1+
--- NOTE | 2018-12-21 17:20 | NUR ---
GAVE PT DIAMOX IVP ORDERED. PT BEGAN FEELING "FUNNY IN THE FACE" AFTER PUSHING THE MEDICATION. PT STATED THAT SHE FELT THOUGH HER FACE IS ITCHY AND VISION IS BECOMINIG BLURRY. PT DENIES ANY ITCHINESS TO THE THROAT AND DENIES ANY DIFFICULTY BREATHING. FAMILY AT BEDSIDE. WILL NOTIFY
[2018-12-21 17:51] VITALS: BP 134/87
--- NOTE | 2018-12-21 18:10 | NUR ---
GAVE PT BENEDRYL ORDERED. IS STATES FEELING SOME RELIEF IN THE ITCHINESS BUT NOW HAS A AMARO AND IS COMPLAINING OF A STOMACH ACHE. PT DENIES TAKING ANY DIAMOX BEFORE IN THE PAST. PT IS ON 2L NC SATTING AT 99%. PT IS LAYING DOWN IN BED AND FEELS TIRED. WILL CONTINUE TO MONITOR PT STATUS. FAMILY MEMBERS AT BEDSIDE. CALL LIGHT WITHIN REACH. WILL CONTINUE TO MONITOR.
--- NOTE | 2018-12-21 18:52 | NUR ---
PT IS LAYING DOWN IN BED WITH HOB UP RESTING. RESPIRATIONS EVEN AND UNLABORED ON 2L NC. PT LOOKS TO BE IN NO ACUTE DISTRESS AT THIS TIME. PT STATES HER FACE STILL FEELS TIGHT BUT IS IMPROVING. PT STATES STOMACH PAIN IS IMPROVING. PT IS COMPLAINING OF NUMBNESS TO BLE AND PAIN TO THE RIGHT ARM. PT STATES IS FEELING TIRED AND IS REQUESTING TO HAVE SOME GRAHMCRACKERS SINCE SHE WAS UNABLE TO EAT DINNER. ASSESS SWALLOWING AND PT HAS NO DIFFICULTY OF SWALLOWING. MADE PT COMFORTABLE IN BED. CALL LIGHT WITHIN REACH. WILL ENDORSE TO ONCOMING SHIFT.
--- NOTE | 2018-12-21 19:30 | NUR ---
CARE ASSUMED FROM OUTGOING RN. PT RESTING IN BED. EVEN AND UNLABORED RESPIRATIONS ON RA, PT REMOVED 2LNC, NO C/O SOB. C/O HEADACHE, ABD PAIN, AND BACK PAIN, WITH NO RESOLUTION AFTER MEDICATIONS GIVEN. WILL MAKE AWARE. IV PATENT AND INTACT RUNNING POTASSIUM, RATE INCREASED TO 40ML/HR. PT TOLERATING WELL, NO BURNING SENSATION, WILL CONTINUE TO INCREASE TOLERATED. BED IN LOWEST POSITION. SIDE RAILS UPX2. CALL LIGHT WITHIN REACH. WILL CONTINUE TO MONITOR.
[2018-12-21 20:55] VITALS: BP 132/83
--- NOTE | 2018-12-21 23:35 | NUR ---
PT C/O 03/01 ABD AND BACK PAIN MEDICATED PER EMAR. PT ON RA. NO C/O SOB. EVEN AND UNLABORED RESPIRATIONS NOTED. IV POTASSIUM COMPLETE. IVL PATENT AND INTACT. BED IN LOWEST POSITION. SIDE RAILS UPX2. CALL LIGHT WITHIN REACH. WILL REASSESS FOR PAIN AND CONTINUE TO MONITOR.
--- NOTE | 2018-12-22 03:00 | NUR ---
PT RESTING COMFORTABLY IN BED. NO ACUTE DISTRESS NOTED. EVEN AND UNLABORED RESPIRATIONS ON RA. IVL PATENT AND INTACT. ABD PAIN RESOLVING. PAIN MEDICATION EFFECTIVE. BED IN LOWEST POSITION. SIDE RAILS UPX2. CALL LIGHT WITHIN REACH. WILL CONTINUE TO MONITOR.
[2018-12-22 05:44] VITALS: BP 118/80
[2018-12-22 06:56] LABS: BASOPHIL % 1.2 % (0-2); PLATELET COUNT 282 x10^3mcL (130-400)
--- NOTE | 2018-12-22 07:00 | NUR ---
RECEIVED REPORT FROM IOANA RN, PT RESTING IN BED, IN NO ACUTE RESP DISTRESS
--- NOTE | 2018-12-22 07:00 | NUR ---
PT SLEPT IN INTERVALS THROUGHOUT THE SHIFT. EVEN AND UNLABORED RESPIRATIONS ON RA. NO C/O SOB. C/O BACK PAIN, ABD PAIN AND AMARO MEDICATED PER EMAR. ALL NEEDS TENDED TO AND MET. SCHEDULED MEDICATIONS GIVEN. BED IN LOWEST POSITION. SIDE RAILS UPX2. CALL LIGHT WITHIN REACH. WILL ENDORSE TO ONCOMING SHIFT.
--- NOTE | 2018-12-22 07:10 | NUR ---
PT IN BED, RESTING W/ EYES CLOSED, DENIED PAIN/CP/PRESURE/AMARO, DENIED N/V/D/DIZZINESS, VERBAL, ABLE TO MAKE NEEDS KNOWN, PERRLA, NO REDNESS/DRAINAGE, IN NO ACUTE RSP DISTRESS, RESP EVEN AND NON-LABORED, DIM BLL, CHEST RISE SYMMETRICALLY, ABD ROUND AND NON-TENDER TO TOUCH, CONTINENT, BSC, GEN. WEAKNESS, AMBULATE W/ ASSIST, SKIN D/W/I, IV PATENT AND NO INFILTRATION, CAP REFILL < 2 SECS, PALP PULSES, ALL NEEDS MET AT THIS TIME, SAFETY PRECAUTION FOLLOWED, CONTINUE TO MONITOR
[2018-12-22 07:20] LABS: CALCIUM 8.6 mg/dL (8.5-10.1); CARBON DIOXIDE 35.8 mmol/L (21-32); CREATININE SERUM 1.2 mg/dL (0.6-1.0); POTASSIUM SERUM 3.8 mmol/L (3.5-5.1)
[2018-12-22 08:12] LABS: RED CELL DISTRIBUTION WIDTH 21.3 % (11.5-14.5)
[2018-12-22 08:43] VITALS: BP 117/72
--- NOTE | 2018-12-22 08:46 | NUR ---
PT IN BED, IN NO ACUTE DISTRESS, AM MED GIVEN PER MD ORDER VIA EMAR, TAKEN WELL, NO ASE NOTED AT THIS TIME, SEEN BY RT FOR ROUTINE TX, CONTINUE TO MONITOR
[2018-12-22 09:51] VITALS: BP 117/72
--- NOTE | 2018-12-22 10:23 | NUR ---
PT AWARE D/C HOME TODAY, PT SAID SON WILL P/U PT AFTER LUNCH
[2018-12-22] MEDS ORDERED: ALDACTONE25 MG PO (10:35)
[2018-12-22] MEDS ORDERED: MACRODANTIN100 M1 PO (10:35)
--- NOTE | 2018-12-22 11:24 | NUR ---
IV REMOVED FROM L AC, CATH TIP INTACT, NO ACTIVE BLEEDING, CONTINUE TO MONITOR
--- NOTE | 2018-12-22 12:31 | NUR ---
D/C PAPER SIGNED AND KEPT IN CHART, EDU ABOUT D/C GIVEN, NO FURTHER CONCERN NEEDED WHEN ASKED, PRESCRIPTION GIVEN TO PT
--- NOTE | 2018-12-22 13:15 | NUR ---
PT ASSISTED TO LOBBBY BY NURSING STAFF VIA WC, PT IN NO ACUTE RESP DISTRESS, P/U BY SON
[2018-12-22 14:52] LABS: rbc morphology (normal/abnorm) ABNORMAL (NORMAL)
== END 2018-12-22 13:25 | disposition home or self-care (01) | DRG 194 ==
LOC: ED 04:11 → EDBD 05:40 → DU 05:40 → MU 05:40 → DU 08:11 → MU 12-20 16:07 → EDBD 12-22 13:25
PROVIDERS: Emergency Medicine; Internal Medicine; ADMIT General Practice
DX: I11.0 Hypertensive heart disease with heart failure (principal); I21.4 Non-ST elevation (NSTEMI) myocardial infarction; I42.9 Cardiomyopathy, unspecified; I50.23 Acute on chronic systolic (congestive) heart failure; E11.65 Type 2 diabetes mellitus with hyperglycemia; E78.5 Hyperlipidemia, unspecified; I25.2 Old myocardial infarction; Z95.0 Presence of cardiac pacemaker; Z79.82 Long term (current) use of aspirin; Z79.4 Long term (current) use of insulin; Z68.34 Body mass index [BMI] 34.0-34.9, adult; J44.9 Chronic obstructive pulmonary disease, unspecified; Z91.14 Patient's other noncompliance with medication regimen
CPT/HCPCS: 82962; 83880; 84439; 94150; G0378; J1120; J1200; J1940; J2270; J3480; J3490; J7050; J7620; Q0092

== ENCOUNTER 2019-01-01 17:07 | Inpatient (IN) | payer OTHER ==
[~2019-01-01] VITALS: Ht 175.3 cm; Wt 108.4 kg
[~2019-01-01 17:07] MED LIST changes: +ALDACTONE25 MG PO; +MACRODANTIN100 M1 PO
[2019-01-01 17:18] VITALS: Ht 175.3 cm; Wt 108.4 kg
--- NOTE | 2019-01-01 17:31 | NUR ---
PT C/O SOB FOR 3 DAYS WITH WORSE TODAY. ARRIVES WITH MILD SOB AND USING ACCESORY MUSCLES BUT IS 97% ON R.A. AND HAS HX OF COPD. BREATHING IS EVEN AND SYMMETRICAL. PT HAS BILATERAL EXP WHEEZING UPON ARRIVAL. PT ALSO C/O 10/10 MIDLINE CHEST PAIN THAT RADIATES TO RIGHT SHOULDER. PT IS ALERT AND ORIENTED WITH SOB NOTED. PT IS TACHYCARDIC AT 110 WITHOUT ECTOPY. CONNECTED TO COOPER HELPER AND EKG PERFORMED AT BEDSIDE. AWAITING MD VERDUZCO
--- NOTE | 2019-01-01 17:50 | NUR ---
DR Temple AT BEDSIDE FOR EVAL
[2019-01-01 18:03] LABS: PLATELET COUNT 190 x10^3mcL (130-400)
--- NOTE | 2019-01-01 18:08 | NUR ---
PT RECEIVING BREATHING TX AT THIS TIME. MEDICATED FOR 10/10 PAIN IV. WILL REASSESS
[2019-01-01 18:10] LABS: RED CELL DISTRIBUTION WIDTH 21.7 % (11.5-14.5)
[2019-01-01 18:19] LABS: CALCIUM 9.1 mg/dL (8.5-10.1); CARBON DIOXIDE 26.2 mmol/L (21-32); CHLORIDE SERUM 105 mmol/L (98-107); GFR1 > 60 mL/min; GLUCOSE SERUM 233 mg/dL (74-106); POTASSIUM SERUM 3.7 mmol/L (3.5-5.1); SODIUM SERUM 142 mmol/L (136-145)
[2019-01-01 18:22] LABS: rbc morphology (normal/abnorm) ABNORMAL (NORMAL)
[2019-01-01 18:35] LABS: ALKALINE PHOSPHATASE 103 U/L (46-116); ALT/SGPT 23 U/L (14-59); AST/SGOT 35 U/L (15-37); BILIRUBIN TOTAL 0.4 mg/dL (0.20-1.00); TOTAL PROTEIN, SERUM 7.9 g/dL (6.4-8.2)
[2019-01-01 18:36] LABS: ALBUMIN 3.1 g/dL (3.4-5.0)
[2019-01-01 20:40] LABS: T3 TOTAL 1.16 ng/mL
--- NOTE | 2019-01-01 20:41 | NUR ---
PT MEDICATED PER ORDER. PT VERBALIZED UNDERSTANDING OF MEDICATION TEACHING. SEE EMAR FOR DETAILS.
[2019-01-01 20:42] LABS: FREE T4 1.01 ng/dL (0.76-1.46); FREE THYROXINE INDEX 1.9 ug/dL (1.4-4.5); T4(THYROXINE) 5.3 ug/dL (4.7-13.3)
[2019-01-01 20:56] LABS: CALCIUM 9.3 mg/dL (8.5-10.1); CARBON DIOXIDE 27.4 mmol/L (21-32); CHLORIDE SERUM 104 mmol/L (98-107); CHOLESTEROL 164 mg/dL (<200); GFR1 > 60 mL/min; GLUCOSE SERUM 238 mg/dL (74-106); MAGNESIUM 1.5 mg/dL (1.8-2.4); PHOSPHOROUS 5.1 mg/dL (2.5-4.9); POTASSIUM SERUM 3.8 mmol/L (3.5-5.1); SODIUM SERUM 141 mmol/L (136-145); TRIGLYCERIDES 106 mg/dL (<150)
[2019-01-01 20:58] LABS: CHOLESTEROL/HDL RATIO 2.3; HDL CHOLESTEROL 72 mg/dL (40-60)
--- NOTE | 2019-01-01 20:58 | NUR ---
PT TRANSFERRED TO TELE FLOOR ACCOMPANIED BY NURSE AND EMT. NO S/S OF DISTRESS. RESP E/U. PER NURSE, RN AT BEDSIDE TO ASSUME CARE OF PT. PT CONNECTED TO MONITOR DURING TRANSFER. IV SITE PATENT, RN AWARE OF IV MEDICATION STILL INFUSING.
[2019-01-01 21:08] VITALS: BP 167/114
--- NOTE | 2019-01-01 21:19 | NUR ---
RECEIVED PT FROM ER, PT ADMIT FOR ACUTE CHF, EXACERBATION. PT IS A/O X4, VERBAL RESPONSIVE, LUNG SOUND DIM LENKA BASE, DENY ANY SOB, AT THIS TIME, PT IS ON TELE 14, ST WITH FIRST DEGREE AV BLOCK, DENY ANY CHEST PAIN OR DISCOMFORT, BOWEL SOUND PRESENT ALL 4 QUADRANTS, NO DISTENTION, NO TENDER. PEDAL PULSE PRESENT BOTH FEET, NON PITTING EDEMA NOTED BLE. IV AT RIGHT AC, NO LEAKING, NO INFILTRATION. ALL ADLS ASSIST, ALL NEED MET, CALL LIGHT IN REACH, WILL CONTINUE TO MONITOR.
--- NOTE | 2019-01-01 21:40 | NUR ---
PT IS A/O X4. TELE #14, ST WITH A BBB. HR 106. DENIES ANY CHEST PAIN OR PRESSURE AT THIS TIME. PULSES ARE PRESENT. TRACE EDEMA NOTED ON BLE. DIMINISHED LENKA BASES. ON RA, DENIES ANY SOB. EQUAL CHEST RISE AND FALL. NO SIGN OF RESP DISTRESS. BOWEL SOUNDS PRESENT x4. SKIN WARM AND INTACT. COMPLAIN OF BACK PAIN 6/10, NON RADIATING, SHARP AND CONSTANT. WILL MEDICATE PER EMAR. IV ON RAC INTACT AND PATENT. BED IS AT LOWEST SETTING. CALL LIGHT WITHIN REACH. WILL CONTINUE TO MONTIOR.
--- NOTE | 2019-01-01 22:16 | NUR ---
MADE MD KING AWARE ABOUT B/P BEING ELEVATED AT 160/100. MD IS TO ORDER ONE TIME B/P MEDICATION D/T PT REFUSINF SL TLAHA PRN. ALSO NOTIFIED MD ABOUT PT REQUEST FOR IV PAIN MEDUICATION. PT STATES THAT PO PAIN MEDICATION DO NOT HELP CONTROL HER PAIN AND IS REFUSING PRN PO PAIN MEDICATION AT THIS TIME. SCALES HER PAIN 6/10, BACK PAIN, THAT IS CONSTANT, NON RADIATING AND SHARP. STATED SHE WILL COME TALK TO THE PT. REQUESTED A KPAD FOR THIS TIME FOR PT COMFORT.
--- NOTE | 2019-01-01 22:20 | NUR ---
EKG BEING DONE AT BEDSIDE.
[2019-01-01 22:30] VITALS: BP 144/95
--- NOTE | 2019-01-01 22:30 | NUR ---
K PAD PLACED FOR PT COMFORT. PT STATES IT FEELS GOOD TO HER BACK. GAVE PRN HTN MEDICATION, SEE EMAR. WILL RE-EVALUATE B/P.
[2019-01-01 23:54] VITALS: BP 144/95
--- NOTE | 2019-01-02 00:33 | NUR ---
MD KING TALKED TO PT WITH RN PRESENT. TALKED ABOUT HER PAIN AND PAIN CONTROL MANAGEMENT. PT STILL REFUSED PO PAIN MEDICATION AT THIS TIME, STATING SHE WILL WAIT.
--- NOTE | 2019-01-02 00:37 | NUR ---
GAVE PT PRN PO PAIN MEDICATION PER EMAR. K PAD ON LOWER BACK TO HELP WITH PAIN MANAGEMENT.
[2019-01-02 01:09] LABS: microscopic required? NO
[2019-01-02 02:03] LABS: urine erythrocyte NEGATIVE (NEGATIVE)
[2019-01-02 02:15] LABS: AMPHETAMINE QUAL UR NONE DETECTED (See below)
--- NOTE | 2019-01-02 02:52 | NUR ---
CALLED LAB AND SPOKE TO ASMITA ABOUT LAB 0200 LAB DRAW NOT OBTAINED. WILL SEND EXCHANGE FLOOR MANAGER TO COLLECT SPECIMEN.
--- NOTE | 2019-01-02 04:08 | NUR ---
CALLED MD KING TO NOTIFY ABOUT 2ND TROP BEING ELEVATED TO 0.191. WILL AWAIT CALL BACK. ALSO PAGED GATE MD RESULTS.
--- NOTE | 2019-01-02 04:14 | NUR ---
MD KING RETURNED CALLED AND WAS GIVEN LATEST TROP OF 0.191. NO NEW ORDERS RECIEVED. PER MD WILL AWAIT COPYHOLDER RECOMMENDATIONS D/T TROP TRENDING DOWN. WILL CONTINUE TO MONTIOR.
[2019-01-02 06:10] VITALS: BP 141/85
--- NOTE | 2019-01-02 06:34 | NUR ---
PT RESTING IN BED. DENIES ANY PAIN OR DISTRESS AT THIS TIME. PT STATED SHE RESTED WELL THROUGHOUT THE NIGHT. NO ACUTE EVENT OCCURED DURING SHIFT. BED IS AT LOWEST SETTING. CALL LIGHT WITHIN REACH. WILL ENDORSE TO AM NURSE.
[2019-01-02 06:37] LABS: BASOPHIL % 0.1 % (0-2); PLATELET COUNT 181 x10^3mcL (130-400)
[2019-01-02 06:52] LABS: CALCIUM 9.1 mg/dL (8.5-10.1); CARBON DIOXIDE 24.6 mmol/L (21-32); CREATININE SERUM 1.3 mg/dL (0.6-1.0); MAGNESIUM 1.7 mg/dL (1.8-2.4); PHOSPHOROUS 6.9 mg/dL (2.5-4.9); POTASSIUM SERUM 4.1 mmol/L (3.5-5.1)
[2019-01-02 06:58] LABS: RED CELL DISTRIBUTION WIDTH 20.7 % (11.5-14.5)
--- NOTE | 2019-01-02 07:40 | NUR ---
RECEIVED PT IN BED A/A/OX4 DENIES AMARO. RESP EVEN AND UNLABORED WITH CLEAR BS BILAT. DENIES ANY SOB/PRESSURE AT THIS TIME. REPORTED EPISODES OF SOB PRIOR TO ADMISSION. NSR WITH BBB ON TELE WITH HR 70S, MILDLY ELEVATED TROP WITH CARDIAC CONSULT PENDING. NOTED WITH TRACE EDEMA TO BLE. IV SL TO RAC. ABD SOFT, NONTENDER WITH ACTIVE BS X4. DENIES ANY N/V AT THIS TIME. VOIDING FREELY. AMBULATORY WITH SUPERVISION WITH POOR ACTIVITY TOLERANCE REPORTED D/T SOB WITH ACTIVITY. CALL LIGHT IN REACH NEEDS ATTENDED TO.
--- NOTE | 2019-01-02 07:48 | NUR ---
CANCELLATION REQUESTED FOR ECHOCARDIOGRAM
[2019-01-02 08:45] VITALS: BP 139/78
[2019-01-02 12:35] VITALS: BP 129/72
--- NOTE | 2019-01-02 14:10 | NUR ---
PT RESTING AT THIS TIME. DENIES ANY DISCOMFORT, CALL LIGHT IN REACH NEEDS ATTENDED TO.
--- NOTE | 2019-01-02 14:43 | NUR ---
PT MADE AWARE BY MD OF PLANNED D/C HOME. PT STATED FAMILY COULD PICK HER UP AFTER DINNER. MD AWARE. CONT TO MONITOR.
[2019-01-02] MEDS ORDERED: LANTUS SOLOS100 U/M1 SQ (15:34)
[2019-01-02] MEDS ORDERED: NOVOLOG FLEX100 U/M1 SC (15:39)
--- NOTE | 2019-01-02 15:45 | NUR ---
PT SEEN BY DR. GOLDSTEIN, PT MADE MD AWARE OF D/C PLANNED MD VERBALIZED SHE WS OK TO GO ON HIS END. PT TO BE D/C'D AFTER DINNER PER REQUEST.
--- NOTE | 2019-01-02 15:50 | NUR ---
DR. COMBS IN TO PROVIDE EDUCATION ON NEW DIABETIC REGIMEN. PT VERBALIZED UNDERSTANDING OF NEW INSTRUCTIONS.
[2019-01-02 16:54] VITALS: BP 128/76
[2019-01-02 17:34] VITALS: BP 128/76
--- NOTE | 2019-01-02 17:59 | NUR ---
PT PROVIDED WITH D/C HOME INSTRUCTIONS. GIVEN MEDICATION/PRESCRIPTION EDUCATION. GIVEN VERBAL AND WRITTEN CHF INSTRUCTIONS. REVIEWED ALL INSTRUCTIONS REGARDING NEW INSULIN DIABETIC REGIMEN. PT VERBALIZED UNDERSTANDING OF INSTRUCTIONS, AND WAS ABLE TO VERBALIZE DIABETIC SPECIFIC INSTRUCTIONS GIVEN. TELE AND IV D/C'D CATHETER INTACT. PT TRANSPORTED TO [facility] WITH ALL PERSONAL BELONGINGS IN HAND FREE OF ANY APPARENT DISTRESS.
== END 2019-01-02 18:00 | disposition home or self-care (01) | DRG 190 ==
LOC: ED 17:07 → DU 19:44 → EDBD 01-02 18:00
PROVIDERS: Emergency Medicine; ADMIT Internal Medicine
DX: I21.A1 Myocardial infarction type 2 (principal); I50.23 Acute on chronic systolic (congestive) heart failure; E11.65 Type 2 diabetes mellitus with hyperglycemia; D68.69 Other thrombophilia; E44.1 Mild protein-calorie malnutrition; E83.42 Hypomagnesemia; I11.0 Hypertensive heart disease with heart failure; J44.1 Chronic obstructive pulmonary disease with (acute) exacerbation; I16.0 Hypertensive urgency; D50.9 Iron deficiency anemia, unspecified; E78.5 Hyperlipidemia, unspecified; I25.2 Old myocardial infarction; Z68.34 Body mass index [BMI] 34.0-34.9, adult; Z79.82 Long term (current) use of aspirin; Z79.4 Long term (current) use of insulin; Z79.84 Long term (current) use of oral hypoglycemic drugs; Z91.14 Patient's other noncompliance with medication regimen
CPT/HCPCS: 82962; 83880; 84439; 94150; G0378; J1940; J2270; J2405; J2930; J3475; J3490; J7620; Q0092

== ENCOUNTER 2019-01-06 01:20 | Emergency (ER) | payer OTHER ==
[~2019-01-06] VITALS: Ht 172.7 cm; Wt 108.0 kg
[~2019-01-06 01:20] MED LIST changes: +LANTUS SOLOS100 U/M1 SQ; +NOVOLOG FLEX100 U/M1 SC
[2019-01-06 01:32] VITALS: Ht 172.7 cm; Wt 108.0 kg
[2019-01-06 02:53] LABS: BASOPHIL % 0.9 % (0-2); PLATELET COUNT 218 x10^3mcL (130-400)
[2019-01-06 02:54] LABS: RED CELL DISTRIBUTION WIDTH 21.3 % (11.5-14.5)
[2019-01-06 03:13] LABS: CALCIUM 8.9 mg/dL (8.5-10.1); CARBON DIOXIDE 30.4 mmol/L (21-32); CREATININE SERUM 1.1 mg/dL (0.6-1.0); POTASSIUM SERUM 3.5 mmol/L (3.5-5.1)
[2019-01-06 03:18] LABS: BILIRUBIN TOTAL 0.45 mg/dL (0.20-1.00); TOTAL PROTEIN, SERUM 7.4 g/dL (6.4-8.2)
[2019-01-06 03:32] LABS: rbc morphology (normal/abnorm) ABNORMAL (NORMAL)
[2019-01-06 05:31] VITALS: BP 166/108
== END 2019-01-06 05:43 | disposition home or self-care (01) ==
LOC: ED 01:20 → EDBD 01:20 → ED 05:43
PROVIDERS: Emergency Medicine
DX: I16.0 Hypertensive urgency (principal); G89.29 Other chronic pain; M79.10 Myalgia, unspecified site; I11.0 Hypertensive heart disease with heart failure; I50.9 Heart failure, unspecified; E11.9 Type 2 diabetes mellitus without complications; J44.9 Chronic obstructive pulmonary disease, unspecified; Z88.6 Allergy status to analgesic agent; Z88.1 Allergy status to other antibiotic agents
CPT/HCPCS: 83880; J0360; J2405; J3010; J3490; Q0092

== ENCOUNTER 2019-01-12 23:19 | Inpatient (IN) | payer OTHER ==
[~2019-01-12] VITALS: Ht 172.7 cm; Wt 111.8 kg
[2019-01-12 23:28] VITALS: Ht 172.7 cm; Wt 111.8 kg
[2019-01-13] VITALS (8 sets, daily range): BP systolic 118–156; BP diastolic 69–99
--- NOTE | 2019-01-13 | NUR ---
PATIENT SEEN WITH COMPLAINT OF CHEST PAIN ON AND OFF ALL DAY. CARDIAC HISTORY AND HTN. BLOOD PRESSURE IS HIGH.
[2019-01-13 00:35] LABS: PLATELET COUNT 237 x10^3mcL (130-400)
[2019-01-13 00:36] LABS: BASOPHIL % 19.8 % (0-2); RED CELL DISTRIBUTION WIDTH 21.1 % (11.5-14.5)
[2019-01-13 00:46] LABS: rbc morphology (normal/abnorm) ABNORMAL (NORMAL); target cell (codocyte) 1+
[2019-01-13 00:49] LABS: CALCIUM 8.1 mg/dL (8.5-10.1); CARBON DIOXIDE 29.9 mmol/L (21-32); CREATININE SERUM 1.2 mg/dL (0.6-1.0); POTASSIUM SERUM 3.4 mmol/L (3.5-5.1)
--- NOTE | 2019-01-13 00:50 | NUR ---
PATIENT SEEN BY MD. MEDICATED WITH LASIX, ASA AND NITRO. REQUESTING PAIN MEDICATION.
[2019-01-13 00:51] LABS: BILIRUBIN TOTAL 0.3 mg/dL (0.20-1.00); TOTAL PROTEIN, SERUM 6.8 g/dL (6.4-8.2)
--- NOTE | 2019-01-13 01:27 | NUR ---
PATIENT UP TO THE BEDSIDE COMMODE, VOIDING
--- NOTE | 2019-01-13 02:33 | NUR ---
REPORT WAS GIVEN TO NAZARIO,PATIENT TRANSPORTED TO ROOM 239.
--- NOTE | 2019-01-13 02:43 | NUR ---
PATIENT EXPRESS THE CHEST PAIN WENT DOWN WITH THE MORPHINE, BUT NOW HER BACK HURTS, H/O CHRONIC BACK PAIN.
--- NOTE | 2019-01-13 03:00 | NUR ---
RECEIVED PT FROM PREVIOUS SHIFT NURSE. PT AOX4. DENIES AMARO/DIZZINESS. ON TELE #16 READING SR WITH BBB. DENIES CP/PRESSURE AT THIS TIME. +2 BLE EDEMA NOTED. LUNG SOUNDS DIMINISHED, ON 2L NC. DENIES SOB/DIFFICULTY BREATHING. BSC SUPPLIED. IV TO L. HAND, INTACT AND PATENT. BED IN LOWEST POSITION. CALL LIGHT WITHIN REACH. WILL CONTINUE TO MONITOR.
--- NOTE | 2019-01-13 04:26 | NUR ---
PT SLEEPING COMFORTABLE, IN NO ACUTE DISTRESS. CALL LIGHT WITHIN REACH. BED IN LOWEST POSITION. WILL CONTINUE TO MONITOR.
[2019-01-13 06:59] LABS: CARBON DIOXIDE 30.4 mmol/L (21-32); CREATININE SERUM 1.2 mg/dL (0.6-1.0); MAGNESIUM 1.5 mg/dL (1.8-2.4); PHOSPHOROUS 4.6 mg/dL (2.5-4.9); POTASSIUM SERUM 3.3 mmol/L (3.5-5.1)
--- NOTE | 2019-01-13 07:30 | NUR ---
PT ENDORSE TO ME THIS MORNING, LAYING IN BED RESTING. BREATHING EVEN AND UNLABORED ON 2L NC, NO ACUTE RESP DISTRESS OR SOB NOTED. AA/O X4. TELE 16 SR WITH BBB NOTED, HR 71, DENIES ANY CP OR PRESSURE. EDEMA NOTED BLE +2. VOIDS FREELY BSC/ STRICK I & O 1200. AMB GEN WEAKNESS NOTED,USES WALKER AT HOME. SKIN INTACT. L HAND/ INTACT AND PATENT. CALL LIGHT IN REACH. BED IN LOW POSITION WILL CONTINUE TO MONITOR.
--- NOTE | 2019-01-13 07:42 | NUR ---
RESPIRATORY: PT IN NO DISTRESS AND IN NO NEED OF BREATHING TX AT THIS TIME. BREATH SOUNDS ARE CLEAR TO DIMINISHED BILATERALLY.
--- NOTE | 2019-01-13 08:01 | NUR ---
LAB CALLED TROP 0.119 DR. ARNOLD MADE AWARE.
[2019-01-13 08:12] LABS: BASOPHIL % 0.7 % (0-2); PLATELET COUNT 214 x10^3mcL (130-400)
[2019-01-13 08:22] LABS: RED CELL DISTRIBUTION WIDTH 20.8 % (11.5-14.5)
[2019-01-13 12:52] LABS: rbc morphology (normal/abnorm) ABNORMAL (NORMAL)
--- NOTE | 2019-01-13 14:29 | NUR ---
PT SITTING UP IN BED WATCHING TV , TOLERATED 100% OF LUNCH, DENIES ANY CP OR PRESSURE. WILL CONTINUE TO MONITOR.
--- NOTE | 2019-01-13 15:16 | NUR ---
LAB CALLED TROP 0.110 DR. ARNOLD MADE AWARE/ DENIES ANY CP OR PRESSURE.
[2019-01-13 17:38] LABS: microscopic required? NO
[2019-01-13 17:42] LABS: urine erythrocyte NEGATIVE (NEGATIVE)
[2019-01-13 17:53] LABS: AMPHETAMINE QUAL UR NONE DETECTED (See below)
--- NOTE | 2019-01-13 19:30 | NUR ---
RECEIVED REPORT FROM AM NURSE. PT LAYINF DOWN IN BED. AAOX4, FOLLOW COMMANDS. ABLE TO MAKE NEEDS KNOWN. ON TELE#16 READING SR. DENIES CP/PRESSURE AT THIS TIME. C/O H/A PAIN. WILL MEDICATE ACCORDINGLY. PALPABLE PULSES TO BLE AND BUE. EDEMA TO BLE NOTED. LUNG SOUNDS DIMINISHED TO BLL. BREATHING EVEN AND UNLABORED ON 2L NC. NO ACUTE DISTRESS NOTED. ABD SOFT AND ROND. ACTIVE BS X4 QUAD. DENIES N/V/D. LAST BM 01/12/19. VOIDS FREELY BRP. GENERALIZED WEAKNESS. AMBULATORY. IV TO LEFT HAND FLUSHING WELL. SITE FREE FROM REDNESS AND SWELLING. BED AT LOWEST SETTING. SIDE RAILS X2 UP. CALL LIGHT WITHING REACH. WILL CONTINUE TO MINITOR.
--- NOTE | 2019-01-13 19:31 | NUR ---
NO ACUTE CHANGES AT THIS TIME. NO ACUTE RESP DISTRESS OR SOB NOTED/ REMAINS ON 2L NC. DENIES ANY CP OR PRESSURE. WILL ENDORSE TO INCOMING RN.
--- NOTE | 2019-01-14 00:05 | NUR ---
PT LAYING DOWN IN BED WITH EYES CLOSED. BREATHING EVEN AND UNLABORED ON 2L NC. NO SOB NOTED. HOB ELEVATED. NO ACUTE DISTRESS NOTED. BED AT LOWEST SETTING. SIDE RAILS X2 UP. CALL LIGHT WITHING REACH. WILL CONTINUE TO MONITOR.
[2019-01-14 04:04] VITALS: BP 146/94
--- NOTE | 2019-01-14 05:23 | NUR ---
PT SLEPT AT INTERVALS THROGHOUT THE NIGHT. BREATHING EVEN AND UNLABORED ON 2L NC. NO SOB NOTED. NO SIGNIFICANT CHANGES DURING SHIFT. ALL NEEDS ASSESSED AND ATTENDED TO. BED AT LOWEST SETTING. SIDE RAILS X2 UP. CALL LIGHT WITHING REACH. WILL ENDORSE CARE TO AM NURSE.
--- NOTE | 2019-01-14 07:12 | NUR ---
RESPIRATORY-PT IN NO NEED OF MED NEB AT THIS TIME. NO SOB. CLEAR BREATH SOUNDS BILATERALLY.
[2019-01-14 07:15] LABS: CALCIUM 7.8 mg/dL (8.5-10.1); CREATININE SERUM 1.1 mg/dL (0.6-1.0); MAGNESIUM 1.4 mg/dL (1.8-2.4); PHOSPHOROUS 5.4 mg/dL (2.5-4.9); POTASSIUM SERUM 3.7 mmol/L (3.5-5.1)
--- NOTE | 2019-01-14 07:30 | NUR ---
PT ENDORSE TO ME THIS MORNING. LAYING IN BED RESTING. AA/O X4/ BREATHING EVEN AND UNLABORED ON RA, NO ACUTE RESP DISTRESS OR SOB NOTED/ REMAINS ON 2L NC = TOLERATING WELL. TELE 16 SR WITH BBB NOTED, HR 60, DENIES ANY CP OR PRESSURE. VOIDS FREELY. GEN WEAKNESS / KNOWS TO CALL FOR ASSIST. IV TO THE L HAND INTACT AND PATENT/ NO REDNESS OR SWELLING NOTED. CALL LIGHT IN REACH. WILL CONTINUE TO MONITOR.
[2019-01-14 08:17] VITALS: BP 127/77
[2019-01-14 08:50] LABS: BASOPHIL % 0.7 % (0-2); PLATELET COUNT 222 x10^3mcL (130-400)
[2019-01-14 08:55] LABS: RED CELL DISTRIBUTION WIDTH 20.6 % (11.5-14.5)
[2019-01-14 08:56] LABS: rbc morphology (normal/abnorm) ABNORMAL (NORMAL)
--- NOTE | 2019-01-14 10:30 | NUR ---
02 EVAL COMPLETED, PER RT PT 02 SAT DURING AMBULATION WAS AT 85%. PT BACK ON 2L NC/ TOLERATING WELL.
[2019-01-14 13:07] VITALS: BP 136/86
--- NOTE | 2019-01-14 14:47 | NUR ---
PT C/O OF BLE PAIN 12/30, MEDICATED PER EMAR. WILL CONTINUE TO MONITOR.
[2019-01-14 16:51] VITALS: BP 128/73
[2019-01-14 17:09] VITALS: BP 117/75
--- NOTE | 2019-01-14 18:43 | NUR ---
PT CONTINUE TO HAVE BLE DISCOMFORT, MEDICATED PER EMAR FOR 10/10 PAIN. REMAINS ON 2L NC/ NO ACUTE RESP DISTRESS OR SOB NOTED/ DENIES ANY CP OR PRESSURE. WILL ENDORSE TO INCOMING RN.
--- NOTE | 2019-01-14 19:24 | NUR ---
RECEIVED PT FROM PREVIOUS SHIFT. PT A/OX4. DENIES SOB ON 2LNC. C/O 10/30 PAIN TO BACK, MEDICATED ON PREVIOUS SHIFT. IV PATENT, SALINE LOCKED. CALL LIGHT WITHIN REACH, BED IN LOW POSITION. WILL CONTINUE TO MONITOR.
[2019-01-14 19:39] VITALS: BP 144/89
--- NOTE | 2019-01-15 03:18 | NUR ---
PT RESTING IN NO ACUTE DISTRESS. RR EVEN AND UNLABORED. CALL LIGHT WITHIN REACH, BED IN LOW POSITION. WILL CONTINUE TO MONITOR.
[2019-01-15 05:09] VITALS: BP 129/74
--- NOTE | 2019-01-15 07:40 | NUR ---
RECEIVED PT'S REPORT. PT SITTING ON BED FOR BREAKFAST. PT DENIED CHEST PAIN AND SOB AT THIS TIME. PT BREATHING ON O2 2L VIA NC, EVEN, UNLABORED. IV SITE SALINE LOCK. WILL CONTINUE PT'S CARE.
[2019-01-15 08:30] VITALS: BP 123/71
[2019-01-15 08:35] LABS: CALCIUM 7.6 mg/dL (8.5-10.1); CARBON DIOXIDE 38.9 mmol/L (21-32); CREATININE SERUM 1.1 mg/dL (0.6-1.0); POTASSIUM SERUM 3.3 mmol/L (3.5-5.1)
[2019-01-15 08:39] LABS: BASOPHIL % 0.9 % (0-2); PLATELET COUNT 259 x10^3mcL (130-400)
[2019-01-15 08:42] LABS: RED CELL DISTRIBUTION WIDTH 20.6 % (11.5-14.5)
[2019-01-15 09:37] LABS: target cell (codocyte) 1+; tear drop cell (dacryocyte) 1+
[2019-01-15 09:38] LABS: rbc morphology (normal/abnorm) ABNORMAL (NORMAL)
[2019-01-15 11:38] VITALS: BP 126/78
--- NOTE | 2019-01-15 12:25 | NUR ---
CALLED VIJAYA MADE ZAFAR MORIN AWARE PT'S K3.3, MG 1.4 LOW.
--- NOTE | 2019-01-15 13:56 | NUR ---
PT AMBULATE TO BATHROOM ON RA, O2 DESAT TO 81%. PT FEELING MILD SOB. RESUME O2 2L VIA NC. PT FEELING BETTER. WILL CONTINUE TO MONITOR.
[2019-01-15 16:50] VITALS: BP 135/83
--- NOTE | 2019-01-15 18:42 | NUR ---
DROP BOARD MAN STILL WORKING ON PT'S HOME O2 DELIVERY. PT REST ON BED WITH FAMILY MEMBERS AT BEDSIDE. DENIED CHEST PAIN. PT BREATHING ON O2 2L VIA NC, EVEN, UNLABORED. IV SITE SALINE LOCK PER ORDER. WILL ENDORSE PT'S CARE TO COMING NURSE.
--- NOTE | 2019-01-15 19:40 | NUR ---
PT. AWAKE, ALERT, ORIENTED X4. DENIES HEADACHE OR DIZZINESS. BREATH SOUNDS DIMINISHED LENKA, RESP. EVEN, UNLABORED. NO SOB NOTED. PT. ON 2L/NC. DENIES CHESTPAIN OR DISCOMFORT. NSR ON MONITOR. +1 EDEMA TO BLE. PEDAL PULSES MODERATE. ABD. SOFT AND ROUND, BOWEL SOUNDS ACTIVE. DENIES ABD. PAIN, DENIES NAUSEA. IV SITE TO LT. HAND HEPLOCKED. FAMILY AT BEDSIDE. CALL LIGHT WITHIN REACH.
[2019-01-15 20:41] VITALS: BP 107/71
--- NOTE | 2019-01-16 00:15 | NUR ---
PT. W/ EYES CLOSED, SLEEPING. NO COMPLAINTS THUS FAR. CALL LIGHT REMAINS WITHIN REACH.
[2019-01-16 05:07] VITALS: BP 116/65
--- NOTE | 2019-01-16 07:10 | NUR ---
RECEIVED REPORT FROM BHUPINDER RN, PT IN BED W/ NO ACUTE DISTRESS
--- NOTE | 2019-01-16 07:20 | NUR ---
PT IN BED, AXOX4, VERBAL, ICELANDIC, ABLE TO MAKE NEEDS KNOWN, PERRLA, NO REDNESS/DRAINAGE, RESP EVEN, NO SOB/COUGH, TELE # 16, NSR, TRACE EDEMA BLE, ABD SOFT, ROUND AND NON-TENDE TO TOUCH, BS ACTIVE X 4, AMBULATORY, CONTINENT, BSC, GENERALIZED WEAKNESS, AMB W/ WALKER, IV PATENT AND NO INFILTRATION NOTED, SKIN D/W/C, FLUID RESTRICTION 1200ML/24 HOURS, DENIED PAIN/CP/PRESSURE, DENIED N/V/D, ALL NEEDS ADDRESSED AT THIS TIME, SAFETY PROTOCOL FOLLOWED, CONTINUE TO MONITOR
[2019-01-16 07:53] VITALS: BP 139/74
--- NOTE | 2019-01-16 10:18 | NUR ---
PT IN BED, IN NO ACUTE DISTRESS, AM MED GIVEN PER MD ORDER VIA EMAR, TAKEN WELL, NO ASE NOTED AT THIS TIME, SAFETY MONITOR, CONTINUE TO MONITOR
[2019-01-16 11:53] VITALS: BP 102/55
--- NOTE | 2019-01-16 13:22 | NUR ---
PT CONCERNED A/B O2 DELIVERY TO HOME PRIOR DC HOME ACCOMODATION, [employer] MANAGER PAGED AND MADE AWARE OF PT CONCERN
[2019-01-16 13:55] VITALS: BP 139/74
--- NOTE | 2019-01-16 14:01 | NUR ---
DIAL EQUIPMENT ENGINEER CALLED AND CONFIRM O2 CONCENTRATOR WILL BE DELIVERED BY [employer] FROM 2-6PM ON 01/16/19, PT MADE AWARE OF DELIVERY AND PT VERBALLY SAID [facility]ILDREN AT HOME WILL P/U DELIVERY AND CALLED TO HOSPITAL FOR CONFIRMATION SO PT CAN BE DC SAFELY HOME, ALL NEEDS ADDRESSED AT THIS TIME, SAFETY MONITOR, CONTINUE TO F/U
--- NOTE | 2019-01-16 16:53 | NUR ---
PORTABLE O2 TANK DELIVERED TO PT IN PT'S ROOM
[2019-01-16 16:58] VITALS: BP 132/83
--- NOTE | 2019-01-16 17:23 | NUR ---
IV REMOVED, IV CATH TIP INTACT, NO ACTIVE BLEEDING NOTED, TELE #16 REMOVED AND RETURNED TO [facility] MO PAPER SIGNED AND KEPT IN CHART, PT STATED IT'S HER RESPONSIBILITY TO F/U W/ PCP AFTER DC, PT STATED SHE HAD APPOINTMENT W/ PCP ON Tue01/17/19 AND SON WILL DRIVE HER TO APPOINTMENT
--- NOTE | 2019-01-16 18:09 | NUR ---
PT NOT IN ACUTE DISTRESS, PT ASSISTED TO LOBBY BY NURSING STAFFS VIA WC, PT WENT HOME W/ PORTABLE O2 TANK, O2 CONCENTRATION DELIVERED TO PT'S HOUSE, DAUGHTER P/U PT AND DROVE PT HOME VIA CAR
== END 2019-01-16 18:08 | disposition home or self-care (01) | DRG 194 ==
LOC: ED 23:19 → DU 01-13 01:54 → EDBD 01-16 18:08
PROVIDERS: Emergency Medicine; ADMIT General Practice
DX: I11.0 Hypertensive heart disease with heart failure (principal); I21.A1 Myocardial infarction type 2; I42.9 Cardiomyopathy, unspecified; I16.0 Hypertensive urgency; E44.0 Moderate protein-calorie malnutrition; J44.1 Chronic obstructive pulmonary disease with (acute) exacerbation; I50.23 Acute on chronic systolic (congestive) heart failure; D50.9 Iron deficiency anemia, unspecified; E78.5 Hyperlipidemia, unspecified; E11.65 Type 2 diabetes mellitus with hyperglycemia; I25.10 Atherosclerotic heart disease of native coronary artery without angina pectoris; Z68.38 Body mass index [BMI] 38.0-38.9, adult; Z79.84 Long term (current) use of oral hypoglycemic drugs
CPT/HCPCS: 82962; 83880; G0378; J1815; J1940; J2270; J2405; J3475; J3490

== ENCOUNTER 2019-01-31 19:47 | Emergency (ER) | payer OTHER ==
[~2019-01-31] VITALS: Ht 172.7 cm; Wt 108.4 kg
[2019-01-31 21:00] LABS: CALCIUM 8.1 mg/dL (8.5-10.1); CARBON DIOXIDE 29.3 mmol/L (21-32); CHLORIDE SERUM 106 mmol/L (98-107); GFR1 > 60 mL/min; GLUCOSE SERUM 137 mg/dL (74-106); POTASSIUM SERUM 3.6 mmol/L (3.5-5.1); SODIUM SERUM 145 mmol/L (136-145)
[2019-01-31 21:05] LABS: ALKALINE PHOSPHATASE 107 U/L (46-116); ALT/SGPT 24 U/L (14-59); AST/SGOT 25 U/L (15-37); BILIRUBIN TOTAL 0.5 mg/dL (0.20-1.00); TOTAL PROTEIN, SERUM 7.5 g/dL (6.4-8.2)
[2019-01-31 21:31] LABS: BASOPHIL % 0.2 % (0-2); PLATELET COUNT 208 x10^3mcL (130-400)
[2019-01-31 21:35] LABS: RED CELL DISTRIBUTION WIDTH 20.2 % (11.5-14.5)
[2019-01-31 21:47] LABS: rbc morphology (normal/abnorm) ABNORMAL (NORMAL)
[2019-01-31 22:43] VITALS: BP 165/105
== END 2019-01-31 22:43 | disposition home or self-care (01) ==
LOC: ED 19:47
PROVIDERS: Emergency Medicine
DX: I11.0 Hypertensive heart disease with heart failure (principal); I50.9 Heart failure, unspecified; E11.9 Type 2 diabetes mellitus without complications; J44.9 Chronic obstructive pulmonary disease, unspecified; Z98.51 Tubal ligation status; Z98.890 Other specified postprocedural states; Z88.1 Allergy status to other antibiotic agents; Z88.6 Allergy status to analgesic agent; Z88.8 Allergy status to other drugs, medicaments and biological substances
CPT/HCPCS: 83880; J0780; J1200; J3010

== ENCOUNTER 2019-02-08 19:22 | Emergency (ER) | payer OTHER ==
[~2019-02-08] VITALS: Ht 172.7 cm; Wt 108.4 kg
[2019-02-08 19:24] VITALS: Ht 172.7 cm; Wt 108.4 kg
[2019-02-08 20:31] LABS: BASOPHIL % 1.9 % (0-2); PLATELET COUNT 259 x10^3mcL (130-400)
[2019-02-08 20:42] LABS: CALCIUM 8.1 mg/dL (8.5-10.1); CARBON DIOXIDE 32.5 mmol/L (21-32); CHLORIDE SERUM 102 mmol/L (98-107); GFR1 > 60 mL/min; GLUCOSE SERUM 183 mg/dL (74-106); POTASSIUM SERUM 3.8 mmol/L (3.5-5.1); SODIUM SERUM 143 mmol/L (136-145)
[2019-02-08 20:46] LABS: RED CELL DISTRIBUTION WIDTH 20.8 % (11.5-14.5)
[2019-02-08 21:04] LABS: ALT/SGPT 25 U/L (14-59); AST/SGOT 32 U/L (15-37); BILIRUBIN TOTAL 0.41 mg/dL (0.20-1.00); TOTAL PROTEIN, SERUM 7.3 g/dL (6.4-8.2)
[2019-02-08 21:07] LABS: rbc morphology (normal/abnorm) ABNORMAL (NORMAL)
[2019-02-08 21:08] LABS: ALBUMIN 3.1 g/dL (3.4-5.0)
[2019-02-08 21:38] LABS: ALKALINE PHOSPHATASE 149 U/L (46-116)
[2019-02-08 22:24] VITALS: BP 181/130
== END 2019-02-08 22:24 | disposition home or self-care (01) ==
LOC: ED 19:22
PROVIDERS: Emergency Medicine
DX: I50.9 Heart failure, unspecified (principal); I11.0 Hypertensive heart disease with heart failure; J44.9 Chronic obstructive pulmonary disease, unspecified; Z91.14 Patient's other noncompliance with medication regimen; E11.9 Type 2 diabetes mellitus without complications; Z98.51 Tubal ligation status; Z98.890 Other specified postprocedural states; Z88.6 Allergy status to analgesic agent; Z88.1 Allergy status to other antibiotic agents
CPT/HCPCS: 83880; J2270; Q0092

== ENCOUNTER 2019-02-17 02:30 | Inpatient (IN) | payer OTHER ==
[~2019-02-17] VITALS: Ht 172.7 cm; Wt 108.7 kg
--- NOTE | 2019-02-17 03:20 | NUR ---
PT NOTIFIED THAT SHE WAS AT HOME AND SHE HAD TROUBLE BREATHING AND THAT HER ABD HURT IN LOWER QUANDRANTS. PT ON 2L N/C AT HOME. LUNG SOUNDS WHEEZES IN RUL AND REST LOBES CLEAR. SEE SHIFT ASSESSMENT. PT STATES PAIN 10/10 IN ABD SAREA
[2019-02-17 03:44] LABS: PLATELET COUNT 230 x10^3mcL (130-400)
[2019-02-17 03:55] LABS: RED CELL DISTRIBUTION WIDTH 20.1 % (11.5-14.5)
[2019-02-17 04:02] LABS: CHLORIDE SERUM 101 mmol/L (98-107); POTASSIUM SERUM 3.4 mmol/L (3.5-5.1); SODIUM SERUM 142 mmol/L (136-145)
[2019-02-17 04:03] LABS: CALCIUM 8.4 mg/dL (8.5-10.1); CARBON DIOXIDE 34.5 mmol/L (21-32); GFR1 > 60 mL/min; GLUCOSE SERUM 161 mg/dL (74-106)
[2019-02-17 04:05] LABS: MONOCYTE 7 % (0-7); SEGMENTED NEUTROPHILS 57 % (37-75)
--- NOTE | 2019-02-17 04:07 | NUR ---
PT RESTING CALMLY IN BED. HR 111. BP 163/117 MAP 127. O2 99. TEMP 98.5.
[2019-02-17 04:08] LABS: ALBUMIN 3.2 g/dL (3.4-5.0); ALKALINE PHOSPHATASE 164 U/L (46-116); ALT/SGPT 26 U/L (14-59); AST/SGOT 29 U/L (15-37); BILIRUBIN TOTAL 0.55 mg/dL (0.20-1.00); TOTAL PROTEIN, SERUM 7.4 g/dL (6.4-8.2)
[2019-02-17 04:09] LABS: rbc morphology (normal/abnorm) ABNORMAL (NORMAL); target cell (codocyte) 1+
[2019-02-17 04:10] LABS: PLATELET MORPHOLOGY PLATELETS NORMAL
--- NOTE | 2019-02-17 07:31 | NUR ---
ATTEMPTED REPORT GIVEN TO GEOLOGY SCIENTIST. STATED THAT SHE WOULD CALL BACK. REPORT GIVEN TO ED RN. ALL CONCERNS ADDRESSED, NURSING UPDATES, POC DISCUSSED. AWAITING CALL BACK.
--- NOTE | 2019-02-17 07:39 | NUR ---
REPORT GIVEN TO EDUARDO GRAHAM IN TELE FOR FURTHER CARE OF PATIENT. ALL QUESTIONS AND CONCERNS ADDRESSED.
--- NOTE | 2019-02-17 08:00 | NUR ---
PT. TRANSFERED BY NURSE VIA GURNEY TO [facility] FLOOR. GLADYS CLARK PRESENT AND ASSUMED CARE OF PATIENT. PT. AAOX4, TALKING AND RESPONDING APPROPRIATELY, BREATHING E/U. NAD. STABLE AT TIME OF TRANSFER.
[2019-02-17 08:01] LABS: MAGNESIUM 1.4 mg/dL (1.8-2.4)
[2019-02-17 08:48] LABS: AMPHETAMINE QUAL UR NEGATIVE (See below)
--- NOTE | 2019-02-17 09:37 | NUR ---
PATIENT RECEIVED WITH NOTED ELEVATED BP ZARI TENORIO BEEN SEEN PRIOR FOR CHEST PAIN AND HX OF ASTHMA AND COPD NOTED. PATIENT IS WITH DIMINISHED BUT CLEAR BREATH SOUNDS AND HAD RECEIVED LASIX IVP IN THE ER. PATIENT HAS EDEMA TO THE LOWER EXTREMITES AND HAS BEEN AMBULATORY BUT WALKS WITH A WALKER AT HOME AND WITH HISTORY OF NEUROPATHY AND HAS AIC AT 9.6. PATIENT STATES SHE HAS BEEN COMPLIANT WITH THE DIET AND HER MEDICATIONS AT HOME. SHE HAS EDIE ON REGULAR HUMALOG AND LANTUS FOR HER BLOOD SUGAR AT HOME. JOBY SI AT 239.4 LBS AND IS 5'8" AND SEEMS VERY INTERESTED IN FOOD AND ICE AND PILLOW MORE THAN THE SOB AND CHEST PAIN SHE ARRIVED TO [facility] ER WITH. SHE DENIES ANY DRUG OR ALCOHOL USES AND HAS BEEN WITH MULTIPLE ALLERGIES OF ACETAZDOMIDE, IBUPORFEN AND TRAMADOL AND KETAMINE ON HER LIST. SHE HAS HER CONTACT HER TWO DAUGHTERS FRAN ACOSTA AT [phone] AND MONO CUMMINGS AT [phone]. PATIENT WAS GIVEN ASA AND MORPHINE AND LASIX IN THE ER ALONG WITH A NITRO PATCH. HER CHEST XRAY SHOWS PULMONARY VASCULAR CONGESTION AND A SMALL RIGHT PLEURAL EFFUSION. SHE WAS SEEN BY THE RESIDENT AND DIET GIVEN. SHE HAS A HISTORY OF COPD, ASTHMA, TUBAL LIGATION, DIABETES, AND HTN. VITALS AT THIS TIME AT 98.8, 99% ON 2 LITERS, BP AT 148/103, AND THE RESPIRATIONS AT 20, AND 68. JOBY IS RFREQUENTLY CONSTIPATED AND HAS HAD A BM LAST NIGHT. SHE STATES SHE HAS A DRY UNPRODUCTIVE COUGH.
[2019-02-17 11:30] VITALS: BP 148/103
--- NOTE | 2019-02-17 11:59 | NUR ---
STUDENT RESTARTE MARÍA IV DUE TO PAIN THTE IV SITES. PATIENT BLOOD SUGA RAT 2188 AND WILL GIVEN 3 UNIT OF REGULAR. PATIENT HAS TOLERAT DIET THIS AM AND IS HUNGERY STILL AND REQUESTING SNACKS AT THIS TIME. PATIENT IS ON FLUID RESTRICTION DUE TO HER CHF DIAGNOSIS.
[2019-02-17 12:15] VITALS: BP 119/80
[2019-02-17 13:54] LABS: microscopic required? NO
[2019-02-17 13:57] LABS: urine erythrocyte NEGATIVE (NEGATIVE)
--- NOTE | 2019-02-17 16:35 | NUR ---
NORCO WAS EFFECTIVE AND PATIENT IS NAPPING AT THIS TIME. SHE HAS NO SIGNS OF RESPIRATORY DISTRES AND NO WHEEZING OR COUGH HEARD. PATIENT GIVEN THE POSTASSIUM AND THE MAGNESIUM WELL A DOSE OF BUMEX AND NEURONTIN. SHE HAS ORDERS IV FLUDS WELL TO BE RUNNING AT A TKO RATE. WILL CONTINUE TO [facility].
--- NOTE | 2019-02-17 19:30 | NUR ---
RECEIVED PATIENT IN BED AWAKE ALERT AND ORIENTED WITH NO RESPIRATORY DISTRESS. BREATHING EASY AND NONLABOR ON O2 AT 2L VIA NC, SATTING AT 98%. TELE#7 NSR WITH BBB ON MONITOR, DENIES CHESTPAIN. EDEMA +1 NOTED TO LE. IV TO RFA INTACT AND INFUSING WELL. WILL CONTINUE TO MONITOR, CALL LIGHT WITHIN REACH.
--- NOTE | 2019-02-17 21:15 | NUR ---
C/O BACKPAIN AT SCALE OF 8/10 NORCO 1 TAB PO GIVEN PRESCRIBED. WILL CONTINUE TO MONITOR.
[2019-02-17 21:49] VITALS: BP 108/68
--- NOTE | 2019-02-17 23:56 | NUR ---
RELIEF NOTED PER PATIENT AFTER PAIN MEDS WAS GIVEN. WILL CONTINUE TO MONITOR.
--- NOTE | 2019-02-17 23:59 | NUR ---
APPEAR TO BE SLEEPING THIS TIME. BREATHING EASY AND NONLABOR. SITTER AT BEDSIDE.
--- NOTE | 2019-02-18 05:22 | NUR ---
CHECKED AT INTERVALS FOR NEEDS AND SAFETY. C/O BACKPAIN X1 THROUGHOUT THE SHIFT AND MEDICATED PRESCRIBED. ALL NEEDS ATTENDED.
[2019-02-18 05:36] VITALS: BP 148/84
[2019-02-18 06:46] LABS: PLATELET COUNT 219 x10^3mcL (130-400)
[2019-02-18 06:59] LABS: CALCIUM 7.7 mg/dL (8.5-10.1); CREATININE SERUM 1.1 mg/dL (0.6-1.0); MAGNESIUM 1.5 mg/dL (1.8-2.4); POTASSIUM SERUM 3.4 mmol/L (3.5-5.1)
[2019-02-18 07:35] LABS: RED CELL DISTRIBUTION WIDTH 20.1 % (11.5-14.5)
--- NOTE | 2019-02-18 08:00 | NUR ---
PATIENT RECEIVED ALERT AND ORIETNED TIMES FOUR. JI SIMONHS BEEN WITH MANY REQUESTS FOR ICE AND SO ON BUT SHE DOES NOT SEEM TO HAVE ANY PAIN AT HTIES ITME. LUNGS ARE DIMINIHSED BUT CLEAR AND BOWEL SOUNDS ACTIVE. ZARI SARA SOEM TRACE TO ONE PLUS EDEAM TO THE LOWER EXTREMIES AND AT THIS TIME SHE HAS TOLERATED AMBULATORY. VITALS AT THIS TIME AT 98.7, 77, 18, 115/87. 98%. JI THAS AIC AT 9.6, POTASSIUM AT 33.4, CA AT 7.7, LAST BLOOD SUGAR AT 116 AND PATIENT HAS HX OF DM. NEUROPATHY, COPD, CHF AND PATIENT LAST BLOOD SGUAR AT 116 AND NO COVERAGE INDICATED. PATIENT HAS ORDERED POTASSIUM FOR LOW POTASSIUM AND MAGNESIUM . SHE HAS NO COMPLAINTS OF PAIN AT THIS TIME AND TOLERATE DIET AND FLUIDS IV IS INTACT AND PATIENT NEEDS MINIMAL ASSIST. PLAN IS FOR DISCARGE AWAITING ORDERS AT THIS TIME. HOME TODAY AND AWAITING ORDERS. REKKKKKKKKKKKKKKKKKKKKKKKKKKKKKKKKKKKKKKKKKKKKKKKKKKKKKKKKKKKKKKKKKKKKKKKKKKKK KKKKKKKKKKKKKKKKKKKKKKKKKKKKKKKKKKKKKKKKKKKKKKKKKKKKKKKKKKKKKKKKKKKKKKKKKKKK
[2019-02-18 08:50] VITALS: BP 115/87
[2019-02-18 10:51] LABS: BAND NEUTROPHIL 0 % (0-10); BASOPHIL 0 % (0-2); MONOCYTE 14 % (0-7); MYELOCYTE 1 % (0-2); SEGMENTED NEUTROPHILS 47 % (37-75)
[2019-02-18 10:53] LABS: rbc morphology (normal/abnorm) ABNORMAL (NORMAL)
[2019-02-18 10:54] LABS: PLATELET MORPHOLOGY PLATELETS NORMAL
--- NOTE | 2019-02-18 11:01 | NUR ---
PATIENT HAS BEEN TOLERATING DIET AND DENIES PAIN AT THIS TIME.
[2019-02-18 11:03] VITALS: BP 115/87
[2019-02-18 12:17] VITALS: BP 120/84
--- NOTE | 2019-02-18 12:45 | NUR ---
DISCHARGE ORDERED AND PATIENT STATES WILL BE PICKED UP AFTER LUNCH. PAPERWORK COMPLETED AND BLOOD SUGAR AT LUNCH AT 144.
--- NOTE | 2019-02-18 13:20 | NUR ---
GAVE INSTRUCTIONS FOR DISCHARGE CÉSAR STATES HAS A SMALL WINDO FOR HER FAMILY TO PICK HER UP. THE PATIENT THOUGH HAS NOT HAD THE FAMILY EVEN CALLED TO [employer]. PATIENT IS TO FOLLOW UP WITH PRIMARY AND NO APPOINTMENT IN ONE WEEK. PATIENT DENIES ANY RESPIRATORY DISTRESS. WILL CONTINUE TO MONITOR.
== END 2019-02-18 13:34 | disposition home or self-care (01) | DRG 194 ==
LOC: ED 02:30 → DU 05:08
PROVIDERS: Emergency Medicine; ADMIT General Practice
DX: I11.0 Hypertensive heart disease with heart failure (principal); I21.A1 Myocardial infarction type 2; E11.40 Type 2 diabetes mellitus with diabetic neuropathy, unspecified; I50.23 Acute on chronic systolic (congestive) heart failure; E44.0 Moderate protein-calorie malnutrition; E11.65 Type 2 diabetes mellitus with hyperglycemia; E83.51 Hypocalcemia; I16.0 Hypertensive urgency; D50.9 Iron deficiency anemia, unspecified; E78.5 Hyperlipidemia, unspecified; J44.9 Chronic obstructive pulmonary disease, unspecified
CPT/HCPCS: 82962; 83880; G0378; J1940; J2270; Q0092

== ENCOUNTER 2019-05-01 15:44 | Inpatient (IN) | payer OTHER ==
[~2019-05-01] VITALS: Ht 172.7 cm; Wt 112.5 kg
[2019-05-01 15:51] VITALS: Ht 172.7 cm; Wt 112.5 kg
--- NOTE | 2019-05-01 16:20 | NUR ---
pt with urge to have bowel movement. pt wheeled to bathroom. pts daughter accompanied. will monitor
[2019-05-01 16:21] LABS: BASOPHIL % 1.7 % (0-2); PLATELET COUNT 199 x10^3mcL (130-400)
[2019-05-01 16:23] LABS: CALCIUM 8.3 mg/dL (8.5-10.1); CARBON DIOXIDE 28.1 mmol/L (21-32); CHLORIDE SERUM 106 mmol/L (98-107); GFR1 > 60 mL/min; GLUCOSE SERUM 196 mg/dL (74-106); SODIUM SERUM 142 mmol/L (136-145)
[2019-05-01 16:24] LABS: RED CELL DISTRIBUTION WIDTH 21.9 % (11.5-14.5)
--- NOTE | 2019-05-01 16:24 | NUR ---
PT BACK TO ROOM WITH NO INCIDENT
--- NOTE | 2019-05-01 16:27 | NUR ---
PT MEDICATED PER MD ORDERS SEE EMAR.
[2019-05-01 16:29] LABS: ALKALINE PHOSPHATASE 132 U/L (46-116); ALT/SGPT 41 U/L (14-59); AST/SGOT 40 U/L (15-37); BILIRUBIN TOTAL 0.6 mg/dL (0.20-1.00); TOTAL PROTEIN, SERUM 7.6 g/dL (6.4-8.2)
--- NOTE | 2019-05-01 16:30 | NUR ---
PT PRESENTS TO ED WITH CP 10/10 TO L CHEST RADIATING TO BACK AND L ARM. PT ALSO REPORTS ABD PAIN, PT REPORTS HAVING EJECTION FRACTION OF 15 AND WHEN A DEFIBRILLATOR WAS GOING TO BE INSERTED IN FEBRUARY PT WENT INTO CARDIAC ARREST FOR APPROX 25 MINUTES. NO DEFIBRILLATOR WAS PLACED DUE TO EVENT. PT TODAY REPORTS WORSENING CP SINCE 1300 HRS. PT AAOX4 NO NEURO DEFICITS. GOWNED PLACED ON FULL CM, MSE COMPLETED BY DR HUSTON. IV ESTABLISHED PT MEDICATED PER MD ORDERS. PTS DAUGHTER AT BEDSIDE PT APPEARS ANXIOUS AND HYPERVENTILATING. PT COACHED TO SLOW DOWN BREATHING. WILL CONTINUE TO MONITOR.
[2019-05-01 16:31] LABS: ALBUMIN 3.3 g/dL (3.4-5.0)
[2019-05-01 16:35] LABS: rbc morphology (normal/abnorm) ABNORMAL (NORMAL)
--- NOTE | 2019-05-01 16:38 | NUR ---
PORTABLE CHEST X-RAY AT BEDSIDE.
--- NOTE | 2019-05-01 17:04 | NUR ---
PT MEDICATED PER MD ORDERS SEE EMAR. BEDSIDE COMMODE PLACED IN PTS ROOM, FOR WHEN SHE HAS URGE TO VOID DUE TO LASIX. PT AAOX4 NO DISTRESS. DENIES ANY CP AT THIS TIME. PTS DAUGHTERS AT BEDSIDE WILL MONITOR.
[2019-05-01] MEDS ORDERED: LASIX20 MG (17:49)
--- NOTE | 2019-05-01 17:55 | NUR ---
REPORT GIVEN TO WANG GRAHAM AND BRIANNA STUDENT NURSE
[2019-05-01] MEDS ORDERED: CARVEDILOL25 M1 PO (17:56)
[2019-05-01] MEDS ORDERED: LASIX40 MG PO (17:56)
--- NOTE | 2019-05-01 18:04 | NUR ---
SPOKE TO RAUL FROM [facility] TO GIVE CLINICAL DATA REQUESTED BY INSURANCE COMPANY
--- NOTE | 2019-05-01 18:53 | NUR ---
PT TO TELE FLOOR VIA [facility] NO DISTRESS ON PORTABLE CM, WANG GRAHAM RESUMING CARE OF PT. ALEX GRAHAM AND ANDREW EMT TRANSPORTED PT
[2019-05-01 19:05] VITALS: BP 150/106
[2019-05-01 19:09] LABS: FREE T4 0.97 ng/dL (0.76-1.46); FREE THYROXINE INDEX 2.1 ug/dL (1.4-4.5); T4(THYROXINE) 6.4 ug/dL (4.7-13.3)
--- NOTE | 2019-05-01 19:15 | NUR ---
NO ACUTE RESP DISTRESS OR SOB NOTED, DENIES ANY CP OR PRESSURE/ WILL ENDORSE TO INCOMING RN. FAMILY AT BEDSIDE.
--- NOTE | 2019-05-01 19:20 | NUR ---
RECEIVED PT FROM PREVIOUS SHIFT NURSE. PT AOX4, C/O AMARO. DENIES CP/PRESSURE AT THIS TIME. IV NOTED TO R. HAND, INTACT AND PATENT. BED IN LOWEST POSITION. CALL LIGHT WITHIN REACH. WILL CONTINUE TO MONITOR.
[2019-05-01 19:21] LABS: MAGNESIUM 1.8 mg/dL (1.8-2.4); PHOSPHOROUS 3.9 mg/dL (2.5-4.9)
[2019-05-01 19:24] LABS: CHOLESTEROL/HDL RATIO 2.7
--- NOTE | 2019-05-01 19:24 | NUR ---
PT REQUESTING MORPHINE IVP. DR. AGARWAL AT THE BEDSIDE. AWAITING FURTHER ORDERS.
[2019-05-01 19:28] LABS: T3 TOTAL 0.89 ng/mL
[2019-05-01 20:00] VITALS: BP 163/101
--- NOTE | 2019-05-01 21:56 | NUR ---
TROP 0.149, DR. VALVERDE MADE AWARE.
[2019-05-01 23:04] VITALS: BP 150/106
[2019-05-02] VITALS: BP 150/106
--- NOTE | 2019-05-02 02:00 | NUR ---
PT RESTING IN BED. RR EVEN AND UNLABORED. IN NO ACUTE DISTRESS. CALL LIGHT WITHIN REACH. BED IN LOWEST POSITION. WILL CONTINUE TO MONITOR.
[2019-05-02 06:12] VITALS: BP 150/99
[2019-05-02 06:42] LABS: CALCIUM 8.7 mg/dL (8.5-10.1); CARBON DIOXIDE 28.9 mmol/L (21-32); CHLORIDE SERUM 102 mmol/L (98-107); CREATININE SERUM 0.9 mg/dL (0.6-1.0); GFR1 > 60 mL/min; GLUCOSE SERUM 133 mg/dL (74-106); MAGNESIUM 1.6 mg/dL (1.8-2.4); PHOSPHOROUS 4.4 mg/dL (2.5-4.9); POTASSIUM SERUM 3.9 mmol/L (3.5-5.1); SODIUM SERUM 138 mmol/L (136-145)
--- NOTE | 2019-05-02 07:30 | NUR ---
PATIENT IS A&OX4, FOLLOWS COMMANDS AND COOPERATES WELL. TELE #22, NSR W/ BBB. PERIPHERAL PULSES PALAPBLE W/ NO SIGNS OF EDEMA. LUNG SOUNDS DIMINISHED TO AUSCULTATION, NO SOB. ON 2L NC W/ O2 SAT OF 99%. NORMOACTIVE BSX4, ROUND AND SOFT. VOIDS WELL, HAS BRP W/ ASSIST. GENERALIZED WEAKNESS, AMBUALTES W/ ASSIST. SKIN IS INTACT. DENIES ANY PAIN, OR DISCOMFORT AT THIS TIME. IV SITE IS CDI. WILL CONTINUE TO MONITOR PATIENT FOR ANY CHEST PAIN, OR INCREASING SOB AT THIS TIME.
[2019-05-02 08:12] LABS: BASOPHIL % 0.4 % (0-2)
[2019-05-02 08:47] VITALS: BP 142/97
[2019-05-02 08:49] LABS: RED CELL DISTRIBUTION WIDTH 21.8 % (11.5-14.5)
[2019-05-02 08:50] LABS: PLATELET COUNT 193 x10^3mcL (130-400); ovalocyte/elliptocyte 1+; target cell (codocyte) 1+
[2019-05-02 08:55] LABS: rbc morphology (normal/abnorm) ABNORMAL (NORMAL)
[2019-05-02 17:17] VITALS: BP 143/96
--- NOTE | 2019-05-02 17:26 | NUR ---
PATIENT IS CURRENTLY RESTING IN BED. PATIENT HAS STATED PAIN. MORPHINE WAS GIVEN. PATIENT DENIES ANY OTHER SOB, CHEST PAIN OR DISCOMFORT AT THIS TIME. ALL QUESTIONS AND CONCERNS HAVE BEEN ADDRESSED. WILL CONTINUE TO MONITOR.
--- NOTE | 2019-05-02 19:20 | NUR ---
REC'D PT FROM DAY NURSE. PT RESTING IN BED. AAOX4, SPEECH CLEAR, FOLLOWS COMMANDS. TELE 22. DENIES CP, DIZZINESS, OR PALPITATIONS. DENIES RESP DISTRESS OR SOB. BREATHING EVEN/UNLABORED ON 3L O2 VIA NC, SPO2 100%. O2 TITRATED DOWN TO 2L, SPO2 100%. PT REPORTS SHE USES 2L O2 AT HOME. NO EDEMA NOTED. ABD SOFT/ROUND. DENIES ABD PAIN OR N/V. REPORTS GEN TENDERNESS UPON PALPATION. VOIDING FREELY. MILD GEN WEAKNESS. AMBULATORY. SKIN INTACT. IV TO RH FLUSHED AND PATENT, SITE WNL. CALL LIGHT WITHIN REACH, BED AT LOWEST POSITION. WILL CONTINUE TO MONITOR.
--- NOTE | 2019-05-02 21:00 | NUR ---
PT C/O THROBBING BACK, R SHOULDER, AND FRONTAL AMARO 03/01. MORPHINE GIVEN PER ORDER.
[2019-05-02 21:05] VITALS: BP 147/92
[2019-05-02 22:09] LABS: microscopic required? YES; urine erythrocyte TRACE (NEGATIVE)
[2019-05-02 22:18] LABS: AMPHETAMINE QUAL UR NONE DETECTED (See below)
--- NOTE | 2019-05-03 00:01 | NUR ---
PT RESTING IN BED WITH EYES CLOSED. LAYING ON L SIDE. NO SIGNS OF DISTRESS OR PAIN NOTED. BREATHING EVEN/UNLABORED ON 2L O2 VIA NC. CALL LIGHT WITHIN REACH, BED AT LOWEST POSITION. WILL CONTINUE TO MONITOR.
--- NOTE | 2019-05-03 00:06 | NUR ---
PT RESTING IN BED WITH EYES CLOSED. NO SIGNS OF DISTRESS OR PAIN NOTED. BREATHING EVEN/UNLABORED ON 2L O2 VIA NC. CALL LIGHT WITHIN REACH, BED AT LOWEST POSITON. WILL CONTINUE TO MONITOR.
--- NOTE | 2019-05-03 04:40 | NUR ---
PT C/O LOWER BACK PAIN, R SHOULDER, AND FRONTAL THROBBING AMARO 10/10. MORPHINE GIVEN PER ORDER.
[2019-05-03 05:55] VITALS: BP 134/97
--- NOTE | 2019-05-03 06:00 | NUR ---
PT RESTING IN BED WITH EYES CLOSED. REPORTS BACK PAIN IS RESOLVING. NO OTHER COMPLAINTS AT THIS TIME. NO SIGNIFICANT CHANGES DURING SHIFT. BREATHING EVEN/UNLABORED ON 2L O2 VIA NC. CALL LIGHT WITHIN REACH, BED AT LOWEST POSITION. WILL ENDORSE TO DAY NURSE.
[2019-05-03 07:10] LABS: BASOPHIL % 0.4 % (0-2); PLATELET COUNT 179 x10^3mcL (130-400)
[2019-05-03 07:17] LABS: RED CELL DISTRIBUTION WIDTH 22.2 % (11.5-14.5)
[2019-05-03 07:27] LABS: CALCIUM 8.2 mg/dL (8.5-10.1); CARBON DIOXIDE 33.8 mmol/L (21-32); CHLORIDE SERUM 103 mmol/L (98-107); CREATININE SERUM 0.9 mg/dL (0.6-1.0); GFR1 > 60 mL/min; GLUCOSE SERUM 126 mg/dL (74-106); MAGNESIUM 1.6 mg/dL (1.8-2.4); POTASSIUM SERUM 3.8 mmol/L (3.5-5.1); SODIUM SERUM 142 mmol/L (136-145)
--- NOTE | 2019-05-03 07:30 | NUR ---
PATIENT IS A&OX4, COOPERATES WELL AND FOLLOWS COMMANDS. TELE #22, NSR W/ BBB, DENIES CHEST PAIN. PERIPHERAL PULSES PALPABLE W/ NO SIGNS OF EDEMA. LUNG SOUNDS DIMINISHED BILATERALLY, ON 2L NC, DENIES SOB. O2 SAT WNL. NORMOACTIVE BSX4. ABLE TOA MBULATE W/ GENERALIZED WEAKNESS. DENIES ANY PAIN AT THIS TIME. RH IV SITE IS CDI. WILL CONTINUE TO MONITOR.
[2019-05-03 08:41] VITALS: BP 131/92
[2019-05-03 10:46] LABS: ovalocyte/elliptocyte 1+; rbc morphology (normal/abnorm) ABNORMAL (NORMAL); target cell (codocyte) 1+; tear drop cell (dacryocyte) 1+
[2019-05-03 12:31] VITALS: BP 149/94
[2019-05-03 16:08] VITALS: BP 149/94
[2019-05-03 16:46] VITALS: BP 141/101
--- NOTE | 2019-05-03 18:09 | NUR ---
PATIENT HAS RECEIVED DISCHARGE INSTRUCTIONS TO GO HOME. PATIENT IS A&OX4, AND VERBALIZES UNDERSTANDING WITH INSTRUCTIONS. ALL QUESTIONS AND CONCERNS HAVE BEEN ADDRESSED. PT DENIES SOB OR CHEST PAIN AT THIS TIME. IV HAS BEEN REMOVED, AND CATHETER IS INTACT. TELE HAS BEEN DC. PATIENT HAS BEEN DISCHARGED VIA WHEELCHAIR WITH REMELTER. PATIENT DOES NOT APPEAR TO BE IN ANY DISTRESS OR DISCOMFORT AT THIS TIME
== END 2019-05-03 18:08 | disposition home or self-care (01) | DRG 190 ==
LOC: ED 15:44 → DU 17:22
PROVIDERS: Internal Medicine; Specialist; ADMIT Internal Medicine Pulmonary Disease
DX: I21.A1 Myocardial infarction type 2 (principal); I50.23 Acute on chronic systolic (congestive) heart failure; E44.0 Moderate protein-calorie malnutrition; E11.65 Type 2 diabetes mellitus with hyperglycemia; I42.9 Cardiomyopathy, unspecified; I11.0 Hypertensive heart disease with heart failure; K52.9 Noninfective gastroenteritis and colitis, unspecified; E78.5 Hyperlipidemia, unspecified; I25.10 Atherosclerotic heart disease of native coronary artery without angina pectoris; D50.9 Iron deficiency anemia, unspecified; J44.9 Chronic obstructive pulmonary disease, unspecified; Z86.74 Personal history of sudden cardiac arrest; Z79.4 Long term (current) use of insulin; Z99.81 Dependence on supplemental oxygen; Z68.34 Body mass index [BMI] 34.0-34.9, adult
CPT/HCPCS: 82962; 83880; 84439; 87046; 87046-59; 94150; G0378; J1644; J1815; J1940; J2270; J3475; J3490; J7050

== ENCOUNTER 2019-05-30 02:12 | Inpatient (IN) | payer OTHER ==
[~2019-05-30] VITALS: Ht 172.7 cm; Wt 108.0 kg
[~2019-05-30 02:12] MED LIST changes: +CARVEDILOL25 M1 PO; +LASIX20 MG
--- NOTE | 2019-05-30 02:38 | NUR ---
PT PRESENTS TO ED WITH C/C OF CHEST PAIN X3-4 DAYS WITH COUGH. PER PT, SHE HAS PRODUCTIVE COUGH FOR A FEW DAYS AND HAS FELT CHEST WALL PAIN THAT FEELS LIKE PRESSURE RADIATE TO NECK AND SHOULDERS. EXPIRATORY WHEEZES AUSCULTATED, REPORTS SOB. SPO2 98% RA. PT DENIES FEVER OR ANY OTHER RELATED SYMPTOMS. PT FEELS PAIN WITH PALPATION TO CHEST WALL. DENIES N/V/D/C. REPORTS SHE GOT HER FLU SHOT. PT IS AWAKE, SPEAKING IN FULL CLEAR SENTENCES, APPEARS UNCOMFORTABLE, STATES "MY NECK AND CHEST ARE KILLING ME." NAD NOTED. AWAITING MSE.
--- NOTE | 2019-05-30 02:47 | NUR ---
XRAY IN PROGRESS
--- NOTE | 2019-05-30 02:51 | NUR ---
DR. BAI AT BEDSIDE FOR MSE.
[2019-05-30 03:01] LABS: CALCIUM 9.2 mg/dL (8.5-10.1); CARBON DIOXIDE 32.2 mmol/L (21-32); CHLORIDE SERUM 105 mmol/L (98-107); GFR1 > 60 mL/min; GLUCOSE SERUM 170 mg/dL (74-106); POTASSIUM SERUM 4.1 mmol/L (3.5-5.1); SODIUM SERUM 142 mmol/L (136-145)
[2019-05-30 03:06] LABS: ALBUMIN 3.3 g/dL (3.4-5.0); ALKALINE PHOSPHATASE 108 U/L (46-116); ALT/SGPT 16 U/L (14-59); AST/SGOT 21 U/L (15-37); BILIRUBIN TOTAL 0.15 mg/dL (0.20-1.00); TOTAL PROTEIN, SERUM 7.8 g/dL (6.4-8.2)
--- NOTE | 2019-05-30 03:23 | NUR ---
PT REPORTS CONTINUED 10/10 CHEST PAIN. PT IS SPEAKING IN FULL CLEAR SENTENCES, RESP E/U, APPEARS CALM AND RELAXED AT THIS TIME, NAD NOTED. DR. BAI MADE AWARE.
[2019-05-30] MEDS ORDERED: CARVEDILOL3.125 M1 (03:27)
[2019-05-30] MEDS ORDERED: LASIX20 MG (03:28)
[2019-05-30] MEDS ORDERED: NEURONTIN100 MG (03:28)
[2019-05-30] MEDS ORDERED: MINITRAN0.1 MG/HR (03:28)
[2019-05-30] MEDS ORDERED: HUMALOG100 U/ML (03:30)
[2019-05-30] MEDS ORDERED: LANTUS SOLOS100 U/M1 (03:30)
[2019-05-30 03:44] LABS: BASOPHIL % 0.9 % (0-2)
--- NOTE | 2019-05-30 03:44 | NUR ---
PT STATES THAT SHE DOES NOT WANT THE NORCO AT THIS TIME BECAUSE SHE STATES THAT IT DOES NOT DO ANYTHING. MD BAI AWARE. MD BAI AT BEDSIDE DISCUSSING PLAN WITH PT
[2019-05-30 03:45] LABS: PLATELET COUNT 242 x10^3mcL (130-400); RED CELL DISTRIBUTION WIDTH 18.4 % (11.5-14.5)
--- NOTE | 2019-05-30 04:21 | NUR ---
PT MEDICATED PER MD ORDER. PT VERBALIZED UNDERSTANDING OF MEDICATION PRIOR TO ADMINISTRATION. PT SPEAKING IN FULL CLEAR SENTENCES, NAD NOTED.
[2019-05-30 04:28] LABS: MAGNESIUM 1.8 mg/dL (1.8-2.4); PHOSPHOROUS 4.7 mg/dL (2.5-4.9)
[2019-05-30 04:33] LABS: CHOLESTEROL/HDL RATIO 2.7
--- NOTE | 2019-05-30 04:52 | NUR ---
PT RESTING COMFORTABLY IN GURNEY, AWAKE, AAOX4, RESP E/U, REPORTS CHEST PAIN RELIEF AT THIS TIME.
--- NOTE | 2019-05-30 05:09 | NUR ---
PT MEDICATED PER MD ORDER. PT VERBALIZED UNDERSTANDING OF MEDICATION PRIOR TO ADMINISTRATION.
[2019-05-30 05:24] LABS: UA SPECIFIC GRAVITY 1.015 (1.005-1.035); microscopic required? YES; urine erythrocyte TRACE (NEGATIVE)
[2019-05-30 05:37] LABS: AMPHETAMINE QUAL UR NONE DETECTED (See below)
--- NOTE | 2019-05-30 05:51 | NUR ---
PT ASLEEP IN GURNEY, GOOD CHEST RISE AND FALL NOTED, RESP E/U, NAD NOTED.
--- NOTE | 2019-05-30 06:17 | NUR ---
PT MEDICATED PER MD ORDER. PT VERBALIZED UNDERSTANDING OF MEDICATION PRIOR TO ADMINISTRATION.
--- NOTE | 2019-05-30 07:05 | NUR ---
PT MEDICATED PER MD ORDER. PT VERBALIZED UNDERSTANDING OF MEDICATION PRIOR TO ADMINISTRATION. PT IS AWAKE, AAOX4, RESP E/U, SPEAKING IN FULL CLEAR SENTENCES, NAD NOTED.
--- NOTE | 2019-05-30 07:07 | NUR ---
ATTEMPTED TO CALL REPORT TO GLADYS CASIANO, CURRENTLY UNAVAILABLE AT THIS TIME WILL CALL ME BACK.
--- NOTE | 2019-05-30 07:16 | NUR ---
REPORT GIVEN TO GLADYS PATTON TO ASSUME CARE OF PT.
--- NOTE | 2019-05-30 07:17 | NUR ---
CALLED ER FOR REPORT FOR HER, THE NURSE WASNT AVAILABLE.
--- NOTE | 2019-05-30 07:23 | NUR ---
REPORT GIVEN TO OH MENDOZA RN. PT READY FOR TRANSPORT
[2019-05-30 09:33] VITALS: BP 155/116
--- NOTE | 2019-05-30 09:52 | NUR ---
AAO TIMES 4. TELE # 36 ST 106 WITH BBB. LUNGS CTA. NO SOB. O2 SAT ON RA 97%. BS'S ACTIVE TIMES 4. ALLEN STRONG. PERIPHERAL PULSES PALPABLE. NO EDEMA. AMBULATORY. NO C/O PAIN. NO SOB. GOOD APPETITE, ATE 100% BREAKFAST. PLEASANT, COOPERATIVE. IV SITE LEFT HAND PATENT, CDI.
[2019-05-30 12:15] VITALS: BP 122/70
--- NOTE | 2019-05-30 13:48 | NUR ---
DR CAMPBELL NOTIFED OF PATIENT'S TROPONIN LEVEL OF 0.225. NO ORDERS AT THIS TIME, IT IS TRENDING DOWN FROM LAST ONE.
[2019-05-30 16:25] VITALS: BP 103/65
--- NOTE | 2019-05-30 18:02 | NUR ---
AT 1730 SHE WANTED TO TALK TO ME. I ARRIVED IN THE ROOM AND SHE ASKED WHEN THE DR WAS COMING BECAUSE SHE THOUGHT SHE WAS BEING DISCAHRGED. I CALLED DR COMBS AND SHE TALKED WITH HER. THE PATIENT SIGNED AN AMA FORM. I REMOVED THE SALINE LOCK ANGIO INTACT AND RETUNRED THE TELE MONITOR TO THE TELE ROOM. SHE WAS TAKEN BY WHEELCHAIR TO THE LOBBY TO WAIT FOR HER FAMILY.
[2019-06-04 15:23] VITALS: Ht 172.7 cm; Wt 108.0 kg
== END 2019-05-30 17:50 | disposition left against medical advice (07) | DRG 190 ==
LOC: ED 02:12 → DU 03:54
PROVIDERS: ADMIT Family Medicine
DX: I21.A1 Myocardial infarction type 2 (principal); I50.23 Acute on chronic systolic (congestive) heart failure; D68.69 Other thrombophilia; E11.65 Type 2 diabetes mellitus with hyperglycemia; E44.0 Moderate protein-calorie malnutrition; E66.9 Obesity, unspecified; I16.0 Hypertensive urgency; D50.9 Iron deficiency anemia, unspecified
CPT/HCPCS: 82962; 83880; G0378; J1940; Q0092

== ENCOUNTER 2019-06-20 14:49 | Inpatient (IN) | payer OTHER ==
[~2019-06-20] VITALS: Ht 172.7 cm; Wt 113.9 kg
[~2019-06-20 14:49] MED LIST changes: +CARVEDILOL3.125 M1; +HUMALOG100 U/ML; +MINITRAN0.1 MG/HR; +NEURONTIN100 MG
[2019-06-20 15:55] LABS: PLATELET COUNT 231 x10^3mcL (130-400)
[2019-06-20 16:00] LABS: CALCIUM 8.7 mg/dL (8.5-10.1); CREATININE SERUM 1.1 mg/dL (0.6-1.0); POTASSIUM SERUM 3.8 mmol/L (3.5-5.1)
[2019-06-20 16:06] LABS: ALBUMIN 3.3 g/dL (3.4-5.0); BILIRUBIN TOTAL 0.4 mg/dL (0.20-1.00); TOTAL PROTEIN, SERUM 7.7 g/dL (6.4-8.2)
[2019-06-20 16:12] LABS: BAND NEUTROPHIL 2 % (0-10); MONOCYTE 10 % (0-7); SEGMENTED NEUTROPHILS 45 % (37-75)
[2019-06-20 16:14] LABS: rbc morphology (normal/abnorm) ABNORMAL (NORMAL)
[2019-06-20 16:15] LABS: PLATELET MORPHOLOGY PLATELETS NORMAL
[2019-06-20 17:08] LABS: microscopic required? YES; urine erythrocyte TRACE (NEGATIVE)
[2019-06-20 17:09] LABS: CHOLESTEROL/HDL RATIO 2.8
[2019-06-20 17:18] LABS: T3 TOTAL 0.75 ng/mL
[2019-06-20 17:37] LABS: FREE T4 0.93 ng/dL (0.76-1.46); FREE THYROXINE INDEX 1.7 ug/dL (1.4-4.5); T4(THYROXINE) 5.1 ug/dL (4.7-13.3)
[2019-06-20] MEDS ORDERED: LASIX40 MG PO (18:47)
[2019-06-20 21:17] VITALS: BP 145/101
[2019-06-20 21:34] VITALS: Ht 172.7 cm; Wt 113.9 kg
[2019-06-21 05:34] VITALS: BP 117/83
[2019-06-21 06:24] LABS: PLATELET COUNT 221 x10^3mcL (130-400)
[2019-06-21 06:35] LABS: BILIRUBIN TOTAL 0.5 mg/dL (0.20-1.00); CALCIUM 8.4 mg/dL (8.5-10.1); CARBON DIOXIDE 28.7 mmol/L (21-32); CREATININE SERUM 1.3 mg/dL (0.6-1.0); MAGNESIUM 1.6 mg/dL (1.8-2.4); TOTAL PROTEIN, SERUM 7.1 g/dL (6.4-8.2)
[2019-06-21 07:09] LABS: RED CELL DISTRIBUTION WIDTH 18.9 % (11.5-14.5)
[2019-06-21 08:02] LABS: BAND NEUTROPHIL 0 % (0-10); BASOPHIL 0 % (0-2); MONOCYTE 10 % (0-7); SEGMENTED NEUTROPHILS 46 % (37-75)
[2019-06-21 08:03] LABS: rbc morphology (normal/abnorm) ABNORMAL (NORMAL)
[2019-06-21 08:04] LABS: ovalocyte/elliptocyte 1+; target cell (codocyte) 1+; tear drop cell (dacryocyte) 1+
[2019-06-21 08:27] VITALS: BP 143/105
[2019-06-21 11:45] VITALS: BP 135/87
[2019-06-21 20:37] VITALS: BP 131/96
[2019-06-22 04:25] VITALS: BP 119/70
[2019-06-22 05:48] LABS: CALCIUM 8.5 mg/dL (8.5-10.1); CREATININE SERUM 1.4 mg/dL (0.6-1.0); POTASSIUM SERUM 4.8 mmol/L (3.5-5.1)
[2019-06-22 06:08] LABS: PLATELET COUNT 221 x10^3mcL (130-400)
[2019-06-22 06:13] LABS: BASOPHIL % 0 % (0-2); RED CELL DISTRIBUTION WIDTH 18.7 % (11.5-14.5)
== END 2019-06-22 06:41 | disposition left against medical advice (07) | DRG 194 ==
LOC: ED 14:49 → DU 18:45
PROVIDERS: Emergency Medicine; Internal Medicine Nephrology; Internal Medicine Pulmonary Disease; Specialist; ADMIT Internal Medicine Pulmonary Disease
DX: I11.0 Hypertensive heart disease with heart failure (principal); I21.4 Non-ST elevation (NSTEMI) myocardial infarction; J96.01 Acute respiratory failure with hypoxia; J44.1 Chronic obstructive pulmonary disease with (acute) exacerbation; E11.65 Type 2 diabetes mellitus with hyperglycemia; J45.901 Unspecified asthma with (acute) exacerbation; I50.33 Acute on chronic diastolic (congestive) heart failure; E11.9 Type 2 diabetes mellitus without complications; Z79.84 Long term (current) use of oral hypoglycemic drugs
CPT/HCPCS: 36600; 82962; 83880; 84439; G0378; J1644; J1815; J1940; J1956; J2405; J2920; J3010; J3475; J3490; J7050; Q0092

== ENCOUNTER 2019-10-18 07:56 | Day surgery (SDC) | payer OTHER ==
[2019-10-18] VITALS (9 sets, daily range): BP systolic 136–162; BP diastolic 85–100
[~2019-10-18] VITALS: Ht 172.7 cm; Wt 123.8 kg
--- NOTE | 2019-10-18 07:35 | NUR ---
RECEIVED THE PATIENT TRANSFERRED FROM [facility]. PATIENT AWAKE AND ORIENTED TO PERSON, PLACE AND TIME. PATIENT DENIED SHORTNESS OF BREATH OR PAIN AT THIS TIME. IV SITE TO LIZBET CASAS. CALL LIGHT WITHIN REACH. SIDE RAILS UP X2.
--- NOTE | 2019-10-18 08:41 | NUR ---
BS CHECKED VIA FINGER STICK WAS 130.
--- NOTE | 2019-10-18 10:40 | NUR ---
PATIENT WAS PROVIDED TULIO WIPES, VOIDED AND SHAVED. REPORT GIVEN TO ANTONIA, THE CHARGE NURSE OF [facility]. PATIENT WAS TAKEN TO THE [facility] VIA GURNEY.
--- NOTE | 2019-10-18 13:15 | NUR ---
RECEIVED THE PATIENT BACK FROM [facility] S/P HEART CATHTERIZATION. PATIENT DROWSY BUT AROUSABLE WITH VERBAL STIMULI; STATED HAVING PAIN AT THE [facility]PER[facility] SITE 08/30 THEN FALLING BACK TO SLEEP. THE RIGHT GROIN NOTED WITH TEGARDEM AND FEMOSTOP IN PLACE. NO BLEEDING NOTED AT THIS TIME. PATIENT INSTRUCTED TO LIE FLAT IN THE GURNEY FOR 6HRS ORDERED. CALL LIGHT WITHIN REACH. SIDE RAILS UP X2.
--- NOTE | 2019-10-18 13:37 | NUR ---
PATIENT C/O PAIN 09/29 DR. DE LEON WAS CALLED TO NOTIFY OF THAT AND AWAITING FOR PAIN MED ORDER.
--- NOTE | 2019-10-18 14:00 | NUR ---
GLADYS LU FROM [facility] I ON CALL MEDICAL ASSISTANT CAME TO REMOVE FEMOSTOP FOR THE PATIENT. NO ACTIVE BLEEDING NOTED RIGHT AFTER THE FEMOSTOP WAS REMOVED. CONTINUE TO MONITOR.
--- NOTE | 2019-10-18 14:30 | NUR ---
PATIENT C/O ACHING 8/10 TO BACK AND RIGHT SHOULDER; NORCO 10/325MG X1 MEDICATED TO THE PATIENT PER PRN ORDERED.
--- NOTE | 2019-10-18 14:30 | NUR ---
PATIENT C/O SHARP PAIN AT RIGHT GROIN GRAB SETTER SITE; NORCO 10/325MG PO X1 MEDICATED TO THE PATIENT PER ORDERED.
--- NOTE | 2019-10-18 14:54 | NUR ---
REPORT GIVEN TO GLADYS DEWITT FROM [facility]. PATIENT WILL TRANSFERRED TO [facility].
--- NOTE | 2019-10-18 15:00 | NUR ---
PATIENT VS CHECKED Q15MIN X4 AND Q30 MINUTES X2. CATH INSERTION SITE AT RIGHT GROIN STAINED WITH SMALL AMOUNT OF BLOOD. NO SWELLING NOTED AT THE SITE. RLE WARM, PULSES PRESENT AT ALL THE TIME.
--- NOTE | 2019-10-18 15:15 | NUR ---
PATIENT TRANSFERRED TO [facility]; GLADYS DEWITT RECEIVED THE PATIENT. THE NITRO SPRAY BOTTLE AND PATIENT'S BELONGINGS SENT TO LUCIO DEWITT RN. THE PATIENT DAUGHTER, LENKA CUMMINGS WAS CALLED AND NOTIFIED OF THE PATIENT'S TRANSFER.
--- NOTE | 2019-10-18 15:30 | NUR ---
RECEIVED PATIENT FROM OUTPATIENT VIA LARRY NURSE AT BEDSIDE. VITAL SIGNS STABLE: BP 146/97 HR:95 PULSE OX: 100% ON 2L TEMP: 98.4 PATIENT STATES SHE HAS A PAIN OF 10/10 TO RIGHT SHOULDER AND BACK. NO BLEEDING NOTED TO CATH INSERTION SITE, DISTAL EXTREMITY WARM, PULSES PRESENT. WILL CONTINUE TO MONITOR.
--- NOTE | 2019-10-18 16:02 | NUR ---
DR. DE LEON MADE AWARE OF PATIENT PAIN TO RIGHT SHOULDER & BACK, DR. FROST GAVE TORB FOR MORPHINE 2MG IVP XONCE ORDERS CARRIED OUT. DR. DE LEON GAVE TORB TO COMPLETE DISCHARGE ORDERS FOR TONIGHT, PATIENT REASSESSED THIS TIME. NO BLEEDING NOTED AT INSERTIONS SITE, NO SWELLING NOTED, DISTAL EXTREMITY WARM, PULSES PRESENT. WILL CONTINUE TO MONITOR.
--- NOTE | 2019-10-18 16:21 | NUR ---
PAIENT WAS C/O OF RIGHT SHOULDER PAIN AND BACK PAIN 10/10, MEDICATED PATIENT WITH MORPHINE PER PROTOCOL (SEE EMAR). EDUCATED PATIENT ON PAIN MANAGEMENT, ALL NEEDS MET AT THIS TIME, WILL CONTINUE TO MONITOR.
--- NOTE | 2019-10-18 16:30 | NUR ---
VITAL SIGNS STABLE; BP: 154/99 HR:83 MAP:117 TEMP:97.9 RESP:20 PULSE OX:99% ON 2L NC.
--- NOTE | 2019-10-18 17:00 | NUR ---
PATIENT RESTING COMFORTABLY IN BED, PT VERBALIZED HER PAIN DECREASED AND IS TOLERABLE AT THIS TIME. CATH INSERTION SITE ASSESSED NO BLEEDING, EDEMA NOTED. DISTAL EXTREMITY WARM TO TOUCH, PULSES PALABLE. WILL CONTINUE TO MONITOR AND MANAGE PAIN.
--- NOTE | 2019-10-18 17:30 | NUR ---
VITAL SIGNS STABLE; BP:155/98 HR:87 MAP:117 TEMP:97.6 RESP:20 PULSE OX:99% ON 2L NC.
--- NOTE | 2019-10-18 18:10 | NUR ---
PATIENT RESTING COMFORTABLY IN BED, NO ACUTE DISTRESS NOTED. PATIENT STATES PAIN IS STILL FELT TO HER RIGHT SHOULDER AND BACK BUT IS TOLERABLE AT THIS TIME. NO BLEEDING/SWELLING NOTED AT CATH INSERTION SITE, DISTAL EXTREMITIES WARM, PULSES PALPABLE TO RLE. ALL NEEDS MET, WILL CONTINUE TO MONITOR AND MANAGE PAIN.
--- NOTE | 2019-10-18 18:30 | NUR ---
VITAL SIGNS STABLE; BP: 147/82 MAP:98 HR:82 RESP:16 PULSE OX: 99% ON 2L NC TEMP:98.5.
--- NOTE | 2019-10-18 19:00 | NUR ---
PATIENT RESTING IN BED, NO ACUTE DISTRESS NOTED. NO BLEEDING/ EDEMA NOTED TO CATH INSERTION SITE, PULSES PALPABLE, SKIN WARM. ALL NEEDS MET, ENDORSED REPORT TO NIGHT RN.
--- NOTE | 2019-10-18 20:00 | NUR ---
RECEIVED REPORT FROM DAY SHIFT RN. PT RESTING IN BED. AA&O X4. NO C/O CHEST PAIN OR PRESSURE. RADIAL AND PEDAL PULSES PALPABLE. SKIN IS WARM AND DRY. NO EDEMA. NO SOB NOTED ON O2 2L VIA NC. BREATHING EVEN AND UNLABORED. NO C/O N/V/ABD PAIN. PT VOIDED PER DAY SHIFT RN. TEGADERM TO RIGHT GROIN WITH SMALL BLOOD STAIN. IV TO RAC, SALINE LOCKED. C/O ACHING PAIN 10/10 TO RIGHT SHOULDER AND BACK. WILL MEDICATE PER ORDER. SAFETY MEASURES IN PLACE. INSTRUCTED PT TO USE THE CALL LIGHT IF ASSISTANCE IS NEEDED. CALL LIGHT WITHIN REACH.
--- NOTE | 2019-10-18 20:19 | NUR ---
NORCO GIVEN FOR RT SHOULDER AND BACK PAIN.
--- NOTE | 2019-10-18 20:50 | NUR ---
PT STATES SHE WANTS TO STAY IN THE HOSPITAL TONIGHT SINCE SHE IS STILL HAVING R SHOULDER/BACK PAIN. DAUGHTER (LENKA) CALLED AND ASKED IF THE PT CAN STAY TONIGHT. TOLD PT AND PT'S DAUGHTER THAT WE WILL CALL DR DE LEON.
--- NOTE | 2019-10-18 21:00 | NUR ---
INFORMED DR DE LEON ABOUT PT NOT FEELING COMFORTABLE GOING HOME TONIGHT SINCE SHE'S STILL HAVING PAIN TO RIGHT SHOULDER AND BACK. PER DR DE LEON, IT'S OK FOR PT TO STAY IN THE HOSPITAL OVERNIGHT. HE'LL CHECK THE PT TOMORROW.
--- NOTE | 2019-10-19 01:59 | NUR ---
PT RESTING WITH EYES CLOSED. BREATHING EVEN AND UNLABORED. NO DISTRESS NOTED. CALL LIGHT WITHN REACH. WILL CONTINUE TO MONITOR.
--- NOTE | 2019-10-19 05:31 | NUR ---
PT C/O RT SHOULDER AND BACK PAIN 03/01. MEDICATED WITH NORCO.
[2019-10-19 06:18] VITALS: BP 105/57
--- NOTE | 2019-10-19 06:54 | NUR ---
PT RESTED IN LONG INTERVALS DURING SHIFT. C/O RT SHOULDER/BACK PAIN X2. MEDICATED WITH NORCO. NO SOB ON O2 2L VIA NC. NO DISTRESS NOTED. SAFETY MEASURES MAINTAINED CALL LIGHT WITHN REACH. WILL ENDORSE CARE TO DAY SHIFT RN.
--- NOTE | 2019-10-19 07:20 | NUR ---
RECEIVED PT FROM MANAGEMENT PROFESSOR NURSE. PT IN BED HAVING BREAKFAST, AOX4, RESP E/U ON 2L NC. DENIES CHEST PAIN OR SOB AT THIS TIME. IV SALINE LOCK TO RAC W/ NO ERYTHEMA/EDEMA. BED IN LOWEST POSITION AND CALL LIGHT WITHIN REACH. WILL CONTINUE TO MONITOR.
--- NOTE | 2019-10-19 08:50 | NUR ---
PT SEEN AT BEDSIDE. PT RESTING IN BED, AOX4, FOLLOWS COMMANDS, SPEECH CLEAR, PERRLA, DENIES HEADACHE. RESP E/U ON 2L NC, EQUAL CHEST RISE, LUNGS CTA, DENIES SOB/COUGH. TEGADERM TO R GROIN NOTED S/P ANGIOGRAM, NO BLEEDING/EDEMA NOTED TO SITE, MOD PALPABLE PULSES X4. PT DENIES CHEST PAIN/PRESSURE OR PALPITATIONS. PT C/O R SHOULDER/BACK PAIN W/ EXERTION, RATED 10/10. PAIN MEDS NOT DUE AT THIS TIME, PT INFORMED, COMFORT MEASURES IMPLEMENTED. BED IN LOWEST POSITION AND CALL LIGHT WITHIN REACH. WILL CONTINUE TO MONITOR.
--- NOTE | 2019-10-19 11:37 | NUR ---
PT RESTING IN BED AOX4, RESP E/U ON 1L NC. PT STILL C/O BACK PAIN W/ EXERTION BUT TOLERABLE AT THIS TIME, NO REQUEST FOR PAIN MEDS. COMFORT MEASURES IMPLEMENTED. BED IN LOWEST POSITION AND CALL LIGHT WITHIN REACH. WILL CONTINUE TO MONITOR.
--- NOTE | 2019-10-19 12:29 | NUR ---
SPOKE W/ DR. DE LEON. INFORMED THAT PT STILL C/O SEVERE BACK PAIN W/ EXERTION. ORDERED FOR PHYSICAL THERAPY EVAL TO BE DONE AND TO UPDATE AFTERWARDS.
[2019-10-19 14:01] VITALS: BP 105/57
--- NOTE | 2019-10-19 14:30 | NUR ---
PT DISCHARGED. REVIEWED PACKET AND F/U INSTRUCTIONS W/ PT, PT VERBALIZED UNDERSTANDING OF INSTRUCTIONS. PT AOX4, RESP E/U ON 2L NC, VS STABLE, REPORTED BACK PAIN BUT TOLERABLE AT THIS TIME. PT ESCORTED TO LOBBY VIA WHEELCHAIR W/ O2 TANK BY [facility] W/ NO ACUTE INCIDENCE.
== END 2019-10-19 14:29 | disposition home or self-care (01) ==
LOC: OR 07:56 → MU 07:56 → DS 07:56 → OR 11:00 → MU 14:29 → DS 10-19 14:29
DX: R07.9 Chest pain, unspecified (principal); I21.3 ST elevation (STEMI) myocardial infarction of unspecified site; E11.9 Type 2 diabetes mellitus without complications; E66.9 Obesity, unspecified; I11.0 Hypertensive heart disease with heart failure; I50.20 Unspecified systolic (congestive) heart failure
CPT/HCPCS: CLHCL; 82962; G0378; J0360; J1200; J1644; J2001; J2250; J2270; J3010; J3490; Q9967

== ENCOUNTER 2019-12-24 05:12 | Emergency (ER) | payer OTHER ==
[~2019-12-24] VITALS: Ht 172.7 cm; Wt 117.0 kg
[2019-12-24 05:25] VITALS: Ht 172.7 cm; Wt 117.0 kg
[2019-12-24 06:23] LABS: PLATELET COUNT 274 x10^3mcL (130-400)
[2019-12-24 06:24] LABS: RED CELL DISTRIBUTION WIDTH 20.5 % (11.5-14.5)
[2019-12-24 07:26] LABS: BAND NEUTROPHIL 1 % (0-10); MONOCYTE 4 % (0-7); SEGMENTED NEUTROPHILS 47 % (37-75); rbc morphology (normal/abnorm) ABNORMAL (NORMAL)
[2019-12-24 07:28] VITALS: BP 159/102
== END 2019-12-24 07:21 | disposition home or self-care (01) ==
LOC: ED 05:12
PROVIDERS: Student in an Organized Health Care Education/Training Program
DX: J44.9 Chronic obstructive pulmonary disease, unspecified (principal); I11.0 Hypertensive heart disease with heart failure; I50.9 Heart failure, unspecified; Z88.6 Allergy status to analgesic agent
CPT/HCPCS: 83880; J1100; J2270; Q0092; U0003-CS